=== PATIENT | female | born 1955 ===

== ENCOUNTER → 2017-01-26 | Outpatient (CLI) | payer BC ==
--- NOTE | 2017-01-27 11:53 | MM ---
Reason for exam: screening (asymptomatic). Last mammogram was performed 1 year and 2 months ago. History: Patient is postmenopausal. Benign stereotactic core biopsy of the left breast, November 28, 1998. Taking estrogen for 1 year beginning at age 58. Physical Findings: A clinical breast exam by your physician is recommended on an annual basis and results should be correlated with mammographic findings. MG Screening Mammo w CAD Bilateral CC and MLO view(s) were taken. Prior study comparison: December 10, 2015, bilateral MG screening mammo w CAD. September 29, 2014, right breast MG work up mamm w CAD RT. There are scattered fibroglandular densities. Finding: There are stale typically benign calcifications. There is no discrete abnormality. No significant changes in finding since December 10, 2015 and September 29, 2014. ASSESSMENT: Benign, BI-RAD 2 RECOMMENDATION: Routine screening mammogram of both breasts in 1 year.
== END | disposition home or self-care (01) ==
LOC: RADMAMWWP 11:15
PROVIDERS: ATTEND Obstetrics & Gynecology
DX: Z12.31 Encounter for screening mammogram for malignant neoplasm of breast (principal)

== ENCOUNTER → 2017-05-27 | Outpatient (CLI) | payer BC ==
[2017-05-27 15:48] VITALS: BP 115/74; PULSE 72; RESP 16; TEMP 99.1; BMI 30.1
--- NOTE | 2017-06-27 22:49 | P.PN ---
Progress Note - Text DATE OF SERVICE: 05/27/2017 CHIEF COMPLAINT: Follow-up gastric bypass. HISTORY OF PRESENT ILLNESS: Melva Morfin is a 61-year-old female who is status post Marisela-en-Y gastric bypass in March 2014. Initially her body mass index was 43.8. Today she comes in with a body mass index of 30.1. She has gained 2 pounds in 8 months. She had presented at her heaviest weight of 224 pounds for a 5 foot frame. Her ideal body weight is 127 pounds. She comes in now weighing 154 pounds. Her body mass index has been reduced from 43.8 down to 30.1. BMI point reduction is 13.7. Percent excess weight loss is 72%. She reports change in bowel habits between liquid stools and constipation. She reports intermittent gas cramps. No further reports of severe gastroesophageal reflux disease however. PAST MEDICAL HISTORY: 1. Gastroesophageal reflux disease, now resolved. 2. Irritable bowel syndrome. 3. Hypothyroidism. 4. Anxiety. 5. Osteoarthritis. 6. Hypertension. 7. Coronary artery disease. 8. Damaris's disease. PAST SURGICAL HISTORY: 1. Colonoscopy with EGD 2012. 2. . 3. Tonsillectomy. 4. Cholecystectomy. 5. Bilateral knee repair. 6. Bunionectomy. 7. Bilateral knee replacement. 8. Left breast biopsy. 9. Heart catheterization. 10. Tonsillectomy. 11. Appendectomy. 12. Cystoscopy. 13. Tubal ligation. 14. Gastric bypass. MEDICATIONS: 1. Zanaflex. 2. Omeprazole 3. Synthroid. 4. Premarin. 5. Tramadol. 6. Vitamin A. 7. Multivitamin. 8. Calcium carbonate ALLERGIES: PENICILLIN. FAMILY HISTORY: Pertinent for heart attack included non-Hodgkin lymphoma. SOCIAL HISTORY: Active alcohol use. Denies any tobacco use. REVIEW OF SYSTEMS: CONSTITUTIONAL: [place] body weight of 127 pounds. Initial weight was 224 pounds. She has lost 70 pounds. Percent excess weight loss 72%. Body mass index reduced from over 43.8 to 30.1 ENDOCRINE: Resolved diabetes. Has hypothyroidism. CARDIOVASCULAR: Resolved hypertension. Results hyperlipidemia. GASTROINTESTINAL: Denies any dumping syndrome. Prior history of gastrojejunal ulcer, including stricture. She also reports constipation. MUSCULOSKELETAL: Reports muscle spasms along the neck as well as upper back. GENITOURINARY: History of abnormal kidney function improved. No kidney stones. PSYCH: History of anxiety without suicidal ideation. NEURO: No reports of strokes or seizure disorders. PSYCH: History of anxiety. No reports of depression. HEMATOLOGIC: Denies any DVTs or pulmonary embolisms. PHYSICAL EXAM: VITAL SIGNS: 5 feet; 154 pounds, body mass index 30.1. Vital Signs 05/27/17 15:45 Temperature 99.1 F Pulse Rate 72 Respiratory 16 Rate Blood Pressure 115/74 GENERAL: Well-developed female in no acute distress. ABDOMEN: Actually soft, nontender, nondistended. MUSCULOSKELETAL: No clubbing, cyanosis, or edema. NECK: Supple without lymphadenopathy. CHEST: Unlabored respirations. Equal bilateral excursions. CARDIOVASCULAR: Regular rate and rhythm. NEURO: No focal or lateralizing signs. Cranial nerves II through XII. PSYCH: Appropriate affect. Alert and noted person place and time. HEENT: No scleral icterus. Extraocular grossly intact. Hears conversational speech. No nasal drainage. SKIN: Good skin turgor. Well-perfused. ASSESSMENT: 1. Morbid obesity due to excess caloric intake. 2. Body mass index reduced from 43.8 to 30.1 3. Status post Marisela-en-Y gastric bypass. 4. Change in bowel habits. 5. Irritable bowel syndrome. 6. Prior history of gastroesophageal reflux disease. PLAN: 1. She is one year out and recommendation bariatric metabolic panel. 2. Recommend protein intake of over 60 g daily. 3. Recommend fiber intake of 25 g daily. 4. Recommend fluid intake and 64 ounces daily. 5. Overall weight loss maintained over 70% excess weight loss.
== END | disposition home or self-care (01) ==
LOC: BARWHC3 14:47
PROVIDERS: ATTEND Surgery Plastic and Reconstructive Surgery
DX: Z48.815 Encounter for surgical aftercare following surgery on the digestive system (principal); Z98.84 Bariatric surgery status; E66.01 Morbid (severe) obesity due to excess calories; F41.9 Anxiety disorder, unspecified; K58.9 Irritable bowel syndrome, unspecified; Z87.19 Personal history of other diseases of the digestive system; Z88.0 Allergy status to penicillin; Z79.899 Other long term (current) drug therapy
CPT/HCPCS: 99211

== ENCOUNTER → 2017-06-01 | Outpatient (CLI) | payer BC ==
[2017-06-01 13:54] LABS: CH 30.2; HGB 11.7 gm/dL (11.4-16.0); MCH 30.5 pg (25.0-35.0); MCHC 34.3 g/dL (31.0-37.0); Mean Platelet Volume 6.9; RBC 3.82 m/uL (3.80-5.40); RDW 14.1 % (11.5-15.5); WBC 4.9 k/uL (3.8-10.6)
[2017-06-01 14:04] LABS: Partial Thromboplastin Time 24.7 sec (22.0-30.0); Prothrombin Time 10.5 sec (9.0-12.0)
[2017-06-01 14:22] LABS: ALT 44 U/L (9-52); AST 35 U/L (14-36); Alkaline Phosphatase 95 U/L (38-126); Anion Gap 9 mmol/L; Blood Urea Nitrogen 19 mg/dL (7-17); Calcium 9.3 mg/dL (8.4-10.2); Carbon Dioxide 26 mmol/L (22-30); Chloride 102 mmol/L (98-107); Cholesterol 181 mg/dL (<200); Glucose 85 mg/dL (74-99); HDL Cholesterol 68 mg/dL (40-60); Iron 97 ug/dL (37-170); Magnesium 1.8 mg/dL (1.6-2.3); Non-African American GFR(MDRD) >60 (>60 ml/min/1.73 sqM); Phosphorous 4.6 mg/dL (2.5-4.5); Potassium 4.4 mmol/L (3.5-5.1); Sodium 137 mmol/L (137-145); Total Bilirubin 0.9 mg/dL (0.2-1.3); Total Protein 6.1 g/dL (6.3-8.2)
[2017-06-01 14:33] LABS: % Iron Saturation 27.1 % (20-50); Prealbumin 19 mg/dL (18-36); Total Iron Binding Capacity 358 ug/dL (265-497)
[2017-06-01 15:13] LABS: Hemoglobin A1C 5.2 % (4.2-6.1)
[2017-06-01 15:27] LABS: Vitamin B12 741 pg/mL (239-931)
== END | disposition home or self-care (01) ==
LOC: LABWHC1 13:11
PROVIDERS: ATTEND Surgery Plastic and Reconstructive Surgery
DX: D50.8 Other iron deficiency anemias (principal); E21.1 Secondary hyperparathyroidism, not elsewhere classified; E89.1 Postprocedural hypoinsulinemia; E44.0 Moderate protein-calorie malnutrition; E55.9 Vitamin D deficiency, unspecified; K74.1 Hepatic sclerosis; N19 Unspecified kidney failure; K50.90 Crohn's disease, unspecified, without complications
CPT/HCPCS: 36415; 80053; 80061; 82306; 82525; 82607; 82728; 82746; 83036; 83540; 83550; 83735; 83970; 84100; 84134; 84255; 84425; 84443; 84590; 84630; 85027; 85610; 85730

== ENCOUNTER → 2017-09-02 | Outpatient (CLI) | payer BC ==
[2017-09-02 16:05] VITALS: BP 102/58; PULSE 71; RESP 16; TEMP 98.2; BMI 31.0
--- NOTE | 2017-11-01 12:32 | P.PN ---
Subjective Progress Note Date: 09/02/17 DATE OF SERVICE: 09/02/17 CHIEF COMPLAINT: Follow-up gastric bypass. HISTORY OF PRESENT ILLNESS: Melva Morfin is a 62-year-old female who is status post Marisela-en-Y gastric bypass in March 2014. Initially her body mass index was 43.8. Today she comes in with a body mass index of 31.0. She has gained 5 pounds in 3 months. She had presented at her heaviest weight of 224 pounds for a 5 foot frame. Her ideal body weight is 127 pounds. She comes in now weighing 158 pounds. Her body mass index has been reduced from 43.8 down to 31.0. BMI point reduction is 12.8. Percent excess weight loss is 68%. She denies any gastroesophageal reflux disease. She does report intolerance with drinking wine which causes burning of the stomach. She reports need for colonoscopy including upper endoscopy. She has been taking omeprazole which has helped with her symptoms. She reports irritable bowel syndrome. She also reports a lot of stress in her life. PAST MEDICAL HISTORY: 1. Gastroesophageal reflux disease. 2. Irritable bowel syndrome. 3. Hypothyroidism. 4. Anxiety. 5. Osteoarthritis. 6. Hypertension. 7. Coronary artery disease. 8. Damaris's disease. PAST SURGICAL HISTORY: 1. Colonoscopy with EGD 2012. 2. . 3. Tonsillectomy. 4. Cholecystectomy. 5. Bilateral knee repair. 6. Bunionectomy. 7. Bilateral knee replacement. 8. Left breast biopsy. 9. Heart catheterization. 10. Tonsillectomy. 11. Appendectomy. 12. Cystoscopy. 13. Tubal ligation. 14. Gastric bypass. MEDICATIONS: 1. Zoloft. 2. Alprazolam. 3. Tramadol. 4. Zanaflex. 5. Vitamin a 6. Omeprazole. 7. Multivitamin. 8. Synthroid. 9. Calcium. 10. Flexeril. ALLERGIES: PENICILLIN. FAMILY HISTORY: Pertinent for heart attack included non-Hodgkin lymphoma. SOCIAL HISTORY: Active alcohol use. Denies any tobacco use. REVIEW OF SYSTEMS: CONSTITUTIONAL: [place] body weight of 127 pounds. Initial weight was 224 pounds. She has lost 66 pounds. Percent excess weight loss 68%. Body mass index reduced from over 43.8 to 31.0. ENDOCRINE: Resolved diabetes. Has hypothyroidism. CARDIOVASCULAR: Resolved hypertension. Results hyperlipidemia. GASTROINTESTINAL: Denies any dumping syndrome. History of gastroesophageal reflux disease. She also reports constipation. MUSCULOSKELETAL: Reports muscle spasms along the neck as well as upper back. GENITOURINARY: History of abnormal kidney function improved. No kidney stones. PSYCH: History of anxiety without suicidal ideation. NEURO: No reports of strokes or seizure disorders. PSYCH: History of anxiety. No reports of depression. HEMATOLOGIC: Denies any DVTs or pulmonary embolisms. PHYSICAL EXAM: VITAL SIGNS: 5 feet; 158 pounds, body mass index 31.0. Vital Signs Temp 98.2 F 09/02/17 15:57 Pulse 71 09/02/17 15:57 Resp 16 09/02/17 15:57 BP 102/58 09/02/17 15:57 Pulse Ox GENERAL: Well-developed female in no acute distress. ABDOMEN: Actually soft, nontender, nondistended. MUSCULOSKELETAL: No clubbing, cyanosis, or edema. NECK: Supple without lymphadenopathy. CHEST: Unlabored respirations. Equal bilateral excursions. CARDIOVASCULAR: Regular rate and rhythm. NEURO: No focal or lateralizing signs. Cranial nerves II through XII. PSYCH: Appropriate affect. Alert and noted person place and time. HEENT: No scleral icterus. Extraocular grossly intact. Hears conversational speech. No nasal drainage. SKIN: Good skin turgor. Well-perfused. ASSESSMENT: 1. Morbid obesity due to excess caloric intake. 2. Body mass index reduced from 43.8 to 31.0. 3. Status post Marisela-en-Y gastric bypass. 4. Prior history of gastroesophageal reflux disease. 5. Need for colonoscopy screening. 6. Secondary hyperparathyroidism. PLAN: 1. Recommend proceeding with both an upper and lower endoscopy. 2. Continue with omeprazole as needed. 3. Labs were reviewed in detail with findings of improved 4. Recommend calcium intake of 1200 mg daily for secondary hyperparathyroidism. Objective - Vital Signs Vital signs: Vital Signs Temp 98.2 F 09/02/17 15:57 Pulse 71 09/02/17 15:57 Resp 16 09/02/17 15:57 BP 102/58 09/02/17 15:57 Pulse Ox Intake & Output 09/01/17 09/02/17 09/02/17 18:59 06:59 18:59 Weight 72.03 kg
== END ==
LOC: BARWHC3 14:46
PROVIDERS: ATTEND Surgery Plastic and Reconstructive Surgery
DX: E66.01 Morbid (severe) obesity due to excess calories (principal); K21.9 Gastro-esophageal reflux disease without esophagitis; K58.9 Irritable bowel syndrome, unspecified; N25.81 Secondary hyperparathyroidism of renal origin; I10 Essential (primary) hypertension; I25.10 Atherosclerotic heart disease of native coronary artery without angina pectoris; E06.3 Autoimmune thyroiditis; F41.9 Anxiety disorder, unspecified; M19.90 Unspecified osteoarthritis, unspecified site; Z68.31 Body mass index [BMI] 31.0-31.9, adult; Z98.84 Bariatric surgery status; Z12.11 Encounter for screening for malignant neoplasm of colon; Z90.49 Acquired absence of other specified parts of digestive tract; Z96.653 Presence of artificial knee joint, bilateral; Z98.890 Other specified postprocedural states; Z88.0 Allergy status to penicillin; Z79.899 Other long term (current) drug therapy; Z79.891 Long term (current) use of opiate analgesic
CPT/HCPCS: 99211

== ENCOUNTER 2017-09-09 08:11 | Day surgery (SDC) | payer BC ==
[2017-09-08 08:33] VITALS: BMI 30.8
--- NOTE | 2017-09-09 07:46 | P.GSHP ---
History of Present Illness H&P Date: 09/09/17 CHIEF COMPLAINT: GERD and colon screen HISTORY OF PRESENT ILLNESS: The patient is a 62-year-old female who presents with gastroesophageal reflux disease and need for colon screen. Upper and lower endoscopy were offered for further evaluation and management. PAST MEDICAL HISTORY: Please see list. PAST SURGICAL HISTORY: Please see list. MEDICATIONS: Please see list. ALLERGIES: Please see list. SOCIAL HISTORY: No illicit drug use FAMILY HISTORY: No reports of Crohn disease or ulcerative colitis. REVIEW OF ORGAN SYSTEMS: CONSTITUTIONAL: No reports of fevers or chills. GI: Denies any blood in stools or constipation. PHYSICAL EXAM: VITAL SIGNS: Stable GENERAL: Well-developed pleasant in no acute distress. HEENT: No scleral icterus. Extraocular movements grossly intact. Moist buccal mucosa. NECK: Supple without lymphadenopathy. CHEST: Unlabored respirations. Equal bilateral excursions. CARDIOVASCULAR: Regular rate and rhythm. Distal 2+ pulses. ABDOMEN: Soft, nondistended. MUSCULOSKELETAL: No clubbing, cyanosis, or edema. ASSESSMENT: 1. Gastroesophageal reflux disease 2. Colon screen. PLAN: 1. Recommend proceeding with an upper and lower endoscopy Past Medical History Past Medical History: Fibromyalgia, Musculoskeletal Disorder, Thyroid Disorder Additional Past Medical History / Comment(s): ALBARO'S, BACK PAIN, STATES "IRREGULAR HEART BEAT", History of Any Multi-Drug Resistant Organisms: None Reported Past Surgical History: Appendectomy, Bariatric Surgery, Breast Surgery, Section, Heart Catheterization, Hernia Repair, Hysterectomy, Joint Replacement, Tonsillectomy, Tubal Ligation Additional Past Surgical History / Comment(s): BILAT TKA, FOOT SX. Colonoscopy , EGD1, Hx.gastric bypass with esophagus repair (March 2015), HIATAL HERNIA, VENTRAL HERNIA Past Anesthesia/Blood Transfusion Reactions: No Reported Reaction Smoking Status: Never smoker - Past Family History Father Family Medical History: Coronary Artery Disease (CAD) Mother Family Medical History: Cancer Additional Family Medical History / Comment(s): NON-HODGKINS LYMPHOMA Brother(s) Family Medical History: Myocardial Infarction (NE) Sister(s) Family Medical History: Myocardial Infarction (NE), Thyroid Disorder Medications and Allergies Home Medications Medication Instructions Recorded Confirmed Type Levothyroxine Sodium [Synthroid] 175 mcg PO DAILY 02/23/14 09/08/17 History ALPRAZolam [ALPRAZolam] 0.5 mg PO HS 10/17/14 09/08/17 History traMADol HCL [Tramadol HCl] 50 mg PO DAILY 10/17/14 09/08/17 History Calcium Carbonate [Calcium] 1,500 mg PO DAILY 07/31/16 09/08/17 History Multivitamins, Thera [Multivitamin] 1 tab PO DAILY 07/31/16 09/08/17 History Vitamin A 20,000 unit PO DAILY 07/31/16 09/08/17 History tiZANidine [Zanaflex] 2 mg PO Q8HR PRN 07/31/16 09/08/17 History Omeprazole 40 mg PO DAILY PRN 09/02/17 09/08/17 History Sertraline [Zoloft] 50 mg PO DAILY 09/02/17 09/08/17 History Allergies Allergy/AdvReac Type Severity Reaction Status Date / Time Penicillins Allergy Swelling Verified 09/08/17 08:30
[~2017-09-09 08:11] MED LIST: LACTATED RINGERS 1,000 ML IV SCH
[2017-09-09 08:54] VITALS: RESP 16; TEMP 97
[2017-09-09] MEDS ORDERED: LIDOCAINE 1% 20 ML VIAL (10MG/ML) FOR IV START INTRADERMA ONE (08:55)
[2017-09-09] MEDS ORDERED: PROPOFOL 10 MG/ML 20 ML VIAL IV ONE (09:12)
[2017-09-09] MEDS ORDERED: LIDOCAINE 1% INJ 10MG/ML (20 ML MDV) ONE (09:12)
--- NOTE | 2017-09-09 09:49 | P.PCN ---
Date of Procedure: 09/09/17 Description of Procedure: PREOPERATIVE DIAGNOSIS: Gastroesophageal reflux disease. History of gastrojejunal stricture. POSTOPERATIVE DIAGNOSIS: Gastroesophageal reflux disease. History of gastrojejunal stricture. OPERATION: Esophagogastrojejunoscopy with balloon dilatation from 15 to 20 mm. SURGEON: Kimmie Bush MD ANESTHESIA: MAC. INDICATIONS: The patient is a 62-year-old female who presents with a history of gastrojejunal stricture. Benefits and risks of the procedure were described. Informed consent was obtained. DESCRIPTION: The patient was brought into the endoscopy suite and laid in the left lateral decubitus position. After a timeout was confirmed, the procedure was initiated. An Olympus gastroscope was passed along the posterior oropharynx down to the distal esophagus where the squamocolumnar junction was unremarkable. The gastric pouch was entered. A gastrojejunal stricture of 15 mm was found as the adult gastroscope was 9.5 mm in size. A [employer] balloon dilator was placed through the scope. Final insufflation up to 20 mm was performed with a total of 2 minutes. The scope was advanced up to 60 cm from the incisors into the Marisela limb. The mucosa of the gastrojejunal anastomosis was intact. However chronic gastrojejunal marginal ulcer was encountered. No full-thickness injury was encountered. The GI tract was desufflated. The patient tolerated the procedure well. FINDINGS: Stricture of approximately 15 mm encountered. No chronic gastrojejunal ulceration encountered. Successful balloon dilatation to 20 mm. RECOMMENDATIONS: Upper endoscopy as needed.
[2017-09-09 09:53] VITALS: BP 95/61; PULSE 75
--- NOTE | 2017-09-09 09:53 | P.PCN ---
Date of Procedure: 09/09/17 Description of Procedure: PREOPERATIVE DIAGNOSIS: Colonoscopy screening. POSTOPERATIVE DIAGNOSIS: Colonoscopy screening. Grade 2 internal hemorrhoids without complications. OPERATION: Colonoscopy to the ileocecal valve and appendiceal orifice. SURGEON: Kimmie Bush MD. ANESTHESIA: MAC. INDICATIONS: The patient is a 62-year-old female who presents for colonoscopy screening. Last colonoscopy was performed within the last 10 years. Benefits and risks were described and informed consent was obtained. DESCRIPTION OF PROCEDURE: The patient had undergone Gatorade, MiraLAX and Dulcolax prep. Se had been brought into the operating room and laid in the left lateral decubitus position. After adequate intravenous sedation, the rectum was examined with 2% lidocaine jelly. No external hemorrhoids were encountered. The rectal tone was within normal limits. No lesions were palpated in the rectal vault. An Olympus colonoscope was advanced until the ileocecal valve and appendiceal orifice were clearly viewed. The prep was excellent with clear visualization of the mucosal folds. The scope was removed with visualization of each mucosal fold. No scattered diverticulosis was encountered. No colonic polyps were found. No evidence of focal colitis was found. Retroflexion of the scope demonstrated grade 2 internal hemorrhoids without active bleeding or inflammation. The colon was desufflated. The patient had tolerated the procedure well. Withdrawal time was over 6 minutes. FINDINGS: Internal hemorrhoids, grade 2. No external prolapsed hemorrhoids. No arteriovenous malformations. No adenomatous polyps. No focal colitis. No sigmoid diverticulosis. RECOMMENDATIONS: Lower endoscopy every 10 years per screening guidelines, 2026; however down to 5 years with family history of colon polyps or cancer. Plan - Discharge Summary New Discharge Prescriptions: No Action Levothyroxine Sodium [Synthroid] 175 mcg PO DAILY traMADol HCL [Tramadol HCl] 50 mg PO DAILY ALPRAZolam [ALPRAZolam] 0.5 mg PO HS tiZANidine [Zanaflex] 2 mg PO Q8HR PRN PRN Reason: Muscle Pain Multivitamins, Thera [Multivitamin] 1 tab PO DAILY Vitamin A 20,000 unit PO DAILY Calcium Carbonate [Calcium] 1,500 mg PO DAILY Omeprazole 40 mg PO DAILY PRN PRN Reason: reflux Sertraline [Zoloft] 50 mg PO DAILY Cyclobenzaprine [Flexeril] 1 tab PO DIRECTED Discharge Medication List Levothyroxine Sodium [Synthroid] 175 mcg PO DAILY 02/23/14 [History] ALPRAZolam [ALPRAZolam] 0.5 mg PO HS 10/17/14 [History] traMADol HCL [Tramadol HCl] 50 mg PO DAILY 10/17/14 [History] Calcium Carbonate [Calcium] 1,500 mg PO DAILY 07/31/16 [History] Multivitamins, Thera [Multivitamin] 1 tab PO DAILY 07/31/16 [History] Vitamin A 20,000 unit PO DAILY 07/31/16 [History] tiZANidine [Zanaflex] 2 mg PO Q8HR PRN 07/31/16 [History] Omeprazole 40 mg PO DAILY PRN 09/02/17 [History] Sertraline [Zoloft] 50 mg PO DAILY 09/02/17 [History] Cyclobenzaprine [Flexeril] 1 tab PO DIRECTED 09/09/17 [History] Follow up Appointment(s)/Referral(s): Kimmie Bush MD [STAFF PHYSICIAN] - As Needed Patient Instructions/Handouts: *[facility] - (Anesthesia) Endoscopy Discharge Instructions Discharge Disposition: HOME SELF-CARE
== END 2017-09-09 10:31 | disposition home or self-care (01) ==
LOC: ORWHC2ENDO 08:11
PROVIDERS: ATTEND Surgery Plastic and Reconstructive Surgery
DX: Z12.11 Encounter for screening for malignant neoplasm of colon (principal); K64.1 Second degree hemorrhoids; K31.89 Other diseases of stomach and duodenum; K21.9 Gastro-esophageal reflux disease without esophagitis; M79.7 Fibromyalgia; E06.3 Autoimmune thyroiditis; M54.2 Cervicalgia; Z98.84 Bariatric surgery status; Z98.51 Tubal ligation status; Z79.891 Long term (current) use of opiate analgesic; Z79.899 Other long term (current) drug therapy; Z88.0 Allergy status to penicillin
CPT/HCPCS: 43245; J2001; J2704; C1726; G0121; 43249

== ENCOUNTER → 2018-03-24 | Outpatient (CLI) | payer BC ==
[2018-03-24 14:42] VITALS: BP 115/59; PULSE 78; RESP 15; TEMP 97.9; BMI 31.6
--- NOTE | 2018-03-24 15:08 | P.PN ---
Subjective Progress Note Date: 03/24/18 DATE OF SERVICE: 03/24/18 CHIEF COMPLAINT: Follow-up gastric bypass. HISTORY OF PRESENT ILLNESS: Melva Morfin is a 63-year-old female who is status post Marisela-en-Y gastric bypass in March 2014. Initially her body mass index was 43.8. She reports weight gain. Some issues with food getting stuck. She reports fair energy. PLAN: 1. Get labs. 2. Get EGD for stricture. 3. Recommend 2 week protein diet. DATE OF SERVICE: 09/02/17 CHIEF COMPLAINT: Follow-up gastric bypass. HISTORY OF PRESENT ILLNESS: Melva Morfin is a 62-year-old female who is status post Marisela-en-Y gastric bypass in March 2014. Initially her body mass index was 43.8. Today she comes in with a body mass index of 31.0. She has gained 5 pounds in 3 months. She had presented at her heaviest weight of 224 pounds for a 5 foot frame. Her ideal body weight is 127 pounds. She comes in now weighing 158 pounds. Her body mass index has been reduced from 43.8 down to 31.0. BMI point reduction is 12.8. Percent excess weight loss is 68%. She denies any gastroesophageal reflux disease. She does report intolerance with drinking wine which causes burning of the stomach. She reports need for colonoscopy including upper endoscopy. She has been taking omeprazole which has helped with her symptoms. She reports irritable bowel syndrome. She also reports a lot of stress in her life. PAST MEDICAL HISTORY: 1. Gastroesophageal reflux disease. 2. Irritable bowel syndrome. 3. Hypothyroidism. 4. Anxiety. 5. Osteoarthritis. 6. Hypertension. 7. Coronary artery disease. 8. Damaris's disease. PAST SURGICAL HISTORY: 1. Colonoscopy with EGD 2012. 2. . 3. Tonsillectomy. 4. Cholecystectomy. 5. Bilateral knee repair. 6. Bunionectomy. 7. Bilateral knee replacement. 8. Left breast biopsy. 9. Heart catheterization. 10. Tonsillectomy. 11. Appendectomy. 12. Cystoscopy. 13. Tubal ligation. 14. Gastric bypass. MEDICATIONS: 1. Zoloft. 2. Alprazolam. 3. Tramadol. 4. Zanaflex. 5. Vitamin a 6. Omeprazole. 7. Multivitamin. 8. Synthroid. 9. Calcium. 10. Flexeril. ALLERGIES: PENICILLIN. FAMILY HISTORY: Pertinent for heart attack included non-Hodgkin lymphoma. SOCIAL HISTORY: Active alcohol use. Denies any tobacco use. REVIEW OF SYSTEMS: CONSTITUTIONAL: [place] body weight of 127 pounds. Initial weight was 224 pounds. She has lost 66 pounds. Percent excess weight loss 68%. Body mass index reduced from over 43.8 to 31.0. ENDOCRINE: Resolved diabetes. Has hypothyroidism. CARDIOVASCULAR: Resolved hypertension. Results hyperlipidemia. GASTROINTESTINAL: Denies any dumping syndrome. History of gastroesophageal reflux disease. She also reports constipation. MUSCULOSKELETAL: Reports muscle spasms along the neck as well as upper back. GENITOURINARY: History of abnormal kidney function improved. No kidney stones. PSYCH: History of anxiety without suicidal ideation. NEURO: No reports of strokes or seizure disorders. PSYCH: History of anxiety. No reports of depression. HEMATOLOGIC: Denies any DVTs or pulmonary embolisms. PHYSICAL EXAM: VITAL SIGNS: 5 feet; 158 pounds, body mass index 31.0. Vital Signs Temp 98.2 F 09/02/17 15:57 Pulse 71 09/02/17 15:57 Resp 16 09/02/17 15:57 BP 102/58 09/02/17 15:57 Pulse Ox GENERAL: Well-developed female in no acute distress. ABDOMEN: Actually soft, nontender, nondistended. MUSCULOSKELETAL: No clubbing, cyanosis, or edema. NECK: Supple without lymphadenopathy. CHEST: Unlabored respirations. Equal bilateral excursions. CARDIOVASCULAR: Regular rate and rhythm. NEURO: No focal or lateralizing signs. Cranial nerves II through XII. PSYCH: Appropriate affect. Alert and noted person place and time. HEENT: No scleral icterus. Extraocular grossly intact. Hears conversational speech. No nasal drainage. SKIN: Good skin turgor. Well-perfused. ASSESSMENT: 1. Morbid obesity due to excess caloric intake. 2. Body mass index reduced from 43.8 to 31.0. 3. Status post Marisela-en-Y gastric bypass. 4. Prior history of gastroesophageal reflux disease. 5. Need for colonoscopy screening. 6. Secondary hyperparathyroidism. PLAN: 1. Recommend proceeding with both an upper and lower endoscopy. 2. Continue with omeprazole as needed. 3. Labs were reviewed in detail with findings of improved 4. Recommend calcium intake of 1200 mg daily for secondary hyperparathyroidism.
[2018-03-24 16:02] LABS: HGB 10.9 gm/dL (11.4-16.0); MCH 29.7 pg (25.0-35.0); MCV 87.4 fL (80.0-100.0); Mean Platelet Volume 6.9; Platelet Count 255 k/uL (150-450); RBC 3.66 m/uL (3.80-5.40); RDW 14.1 % (11.5-15.5); WBC 4.6 k/uL (3.8-10.6)
[2018-03-24 16:07] LABS: Partial Thromboplastin Time 23.3 sec (22.0-30.0)
[2018-03-24 16:22] LABS: ALT 32 U/L (9-52); AST 29 U/L (14-36); Albumin 3.7 g/dL (3.5-5.0); Alkaline Phosphatase 110 U/L (38-126); Anion Gap 10 mmol/L; Blood Urea Nitrogen 18 mg/dL (7-17); Carbon Dioxide 30 mmol/L (22-30); Chloride 99 mmol/L (98-107); Cholesterol 179 mg/dL (<200); Glucose 105 mg/dL (74-99); HDL Cholesterol 64 mg/dL (40-60); LDL Cholesterol,Calculated 99 mg/dL (0-99); Magnesium 1.9 mg/dL (1.6-2.3); Phosphorus 4.3 mg/dL (2.5-4.5); Sodium 139 mmol/L (137-145); Total Bilirubin 0.6 mg/dL (0.2-1.3); Total Protein 5.8 g/dL (6.3-8.2); Triglycerides 81 mg/dL (<150)
[2018-03-25 02:25] LABS: Iron Saturation 8.16 (12.00-45.00)
[2018-03-25 03:57] LABS: Hemoglobin A1C 5.3 % (4.0-6.0)
[2018-03-25 11:55] LABS: Folate, Serum 22.5 ng/mL
[2018-03-25 14:22] LABS: Zinc, Serum 54 ug/dL (60-130)
[2018-03-26 05:34] LABS: Vitamin B1 49 ug/L (38-122)
[2018-03-26 05:42] LABS: Vitamin A 40 ug/dL (38-106)
[2018-03-27 10:32] LABS: Selenium 109 mcg/L (63-160)
== END | disposition home or self-care (01) ==
LOC: BARWHC3 13:54
PROVIDERS: ATTEND Surgery Plastic and Reconstructive Surgery
DX: Z09 Encounter for follow-up examination after completed treatment for conditions other than malignant neoplasm (principal); E66.01 Morbid (severe) obesity due to excess calories; K21.9 Gastro-esophageal reflux disease without esophagitis; K58.9 Irritable bowel syndrome, unspecified; E03.9 Hypothyroidism, unspecified; F41.9 Anxiety disorder, unspecified; I10 Essential (primary) hypertension; N25.81 Secondary hyperparathyroidism of renal origin; I25.10 Atherosclerotic heart disease of native coronary artery without angina pectoris; E06.3 Autoimmune thyroiditis; M19.90 Unspecified osteoarthritis, unspecified site; D50.9 Iron deficiency anemia, unspecified; K90.9 Intestinal malabsorption, unspecified; E55.9 Vitamin D deficiency, unspecified; K74.1 Hepatic sclerosis; N19 Unspecified kidney failure; Z90.49 Acquired absence of other specified parts of digestive tract; Z96.653 Presence of artificial knee joint, bilateral; Z98.84 Bariatric surgery status; Z98.890 Other specified postprocedural states; Z79.891 Long term (current) use of opiate analgesic; Z79.899 Other long term (current) drug therapy; Z68.31 Body mass index [BMI] 31.0-31.9, adult; Z88.0 Allergy status to penicillin
CPT/HCPCS: 36415; 80053; 80061; 82306; 82525; 82607; 82728; 82746; 83036; 83540; 83550; 83735; 83970; 84100; 84134; 84255; 84425; 84443; 84590; 84630; 85027; 85610; 85730; 99211

== ENCOUNTER 2018-04-28 08:35 | Day surgery (SDC) | payer BC ==
[2018-04-27 09:44] VITALS: BMI 30.4
--- NOTE | 2018-04-28 07:46 | P.GSHP ---
History of Present Illness H&P Date: 04/28/18 CHIEF COMPLAINT: GERD HISTORY OF PRESENT ILLNESS: The patient is a 63-year-old female who presents reports gastroesophageal reflux disease. Upper endoscopy was offered for further evaluation and management. PAST MEDICAL HISTORY: Please see list. PAST SURGICAL HISTORY: Please see list. MEDICATIONS: Please see list. ALLERGIES: Please see list. SOCIAL HISTORY: No illicit drug use FAMILY HISTORY: No reports of Crohn disease or ulcerative colitis. REVIEW OF ORGAN SYSTEMS: CONSTITUTIONAL: No reports of fevers or chills. GI: Denies any blood in stools or constipation. PHYSICAL EXAM: VITAL SIGNS: Stable GENERAL: Well-developed and pleasant in no acute distress. HEENT: No scleral icterus. Extraocular movements grossly intact. Moist buccal mucosa. NECK: Supple without lymphadenopathy. CHEST: Unlabored respirations. Equal bilateral excursions. CARDIOVASCULAR: Regular rate and rhythm. Distal 2+ pulses. ABDOMEN: Soft, nondistended. MUSCULOSKELETAL: No clubbing, cyanosis, or edema. ASSESSMENT: 1. Gastroesophageal reflux disease PLAN: 1. Recommend proceeding with an upper endoscopy Past Medical History Past Medical History: Asthma, Deep Vein Thrombosis (DVT), Fibromyalgia, Osteoarthritis (OA), Thyroid Disorder Additional Past Medical History / Comment(s): ALBARO'S, CHRONIC BACK PAIN from arthritis and bulging disks, hx ulcers, anemia(recent iron infusion) History of Any Multi-Drug Resistant Organisms: None Reported Past Surgical History: Appendectomy, Bariatric Surgery, Breast Surgery, Section, Cholecystectomy, Heart Catheterization, Hysterectomy, Joint Replacement, Tonsillectomy, Tubal Ligation Additional Past Surgical History / Comment(s): tejas knee replacements, tejas bunionectomy, gastric bypass, left breast biopsy, Past Anesthesia/Blood Transfusion Reactions: No Reported Reaction Smoking Status: Never smoker - Past Family History Father Family Medical History: Coronary Artery Disease (CAD) Mother Family Medical History: Cancer Additional Family Medical History / Comment(s): NON-HODGKINS LYMPHOMA Brother(s) Family Medical History: Myocardial Infarction ([place]) Sister(s) Family Medical History: Myocardial Infarction ([place]), Thyroid Disorder Medications and Allergies Home Medications Medication Instructions Recorded Confirmed Type Levothyroxine Sodium [Synthroid] 175 mcg PO DAILY 02/23/14 04/27/18 History traMADol HCL [Tramadol HCl] 50 - 100 mg PO Q6HR PRN 10/17/14 04/27/18 History Multivitamins, Thera [Multivitamin] 2 tab PO DAILY 07/31/16 04/27/18 History Sertraline [Zoloft] 50 mg PO DAILY 09/02/17 04/27/18 History Cyclobenzaprine [Flexeril] 5 tab PO BID PRN 09/09/17 04/27/18 History ALPRAZolam [Xanax] 0.5 mg PO HS PRN 04/27/18 04/27/18 History Calcium Citrate/Vitamin D3 1 each PO DAILY 04/27/18 04/27/18 History [Calcitrate + Vit D Caplet] Cholecalciferol [Vitamin D3] 1,000 unit PO DAILY 04/27/18 04/27/18 History Vitamin A 16,000 unit PO DAILY 04/27/18 04/27/18 History Allergies Allergy/AdvReac Type Severity Reaction Status Date / Time Penicillins Allergy Swelling Verified 04/27/18 09:31 of legs
[2018-04-28 09:32] VITALS: RESP 16; TEMP 97.4
[2018-04-28] MEDS ORDERED: LIDOCAINE 1% INJ 10MG/ML (20 ML MDV) ONE (10:17)
[2018-04-28] MEDS ORDERED: PROPOFOL 10 MG/ML 20 ML VIAL IV ONE (10:17)
--- NOTE | 2018-04-28 10:29 | P.PCN ---
Date of Procedure: 04/28/18 Description of Procedure: PREOPERATIVE DIAGNOSIS: Dysphagia. s/p Marisela-en-y gastric bypass. Gastroesophageal reflux disease POSTOPERATIVE DIAGNOSIS: Dysphagia. s/p Marisela-en-y gastric bypass. 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 SURGEON: Kimmie Bush MD ANESTHESIA: MAC. INDICATIONS: The patient is a 63-year-old female who presents with a history of dysphagia, gastric bypass and gastric stenosis. Benefits and risks of the procedure were described. Informed consent was obtained. DESCRIPTION: The patient was brought into the endoscopy suite and laid in the left lateral decubitus position. After a timeout was confirmed, the procedure was initiated. An Olympus gastroscope was passed along the posterior oropharynx down to the distal esophagus where the squamocolumnar junction was unremarkable. The gastric pouch was entered. A gastrojejunal stricture of 15 mm was found as the adult gastroscope was 9.5 mm in size. A [employer] balloon dilator was placed through the scope. Final insufflation up to 20 mm was performed with a total of 2 minutes. The scope was advanced up to 60 cm from the incisors into the Marisela limb. The mucosa of the gastrojejunal anastomosis was intact. However chronic gastrojejunal marginal ulcer was encountered. No full-thickness injury was encountered. The GI tract was desufflated. The patient tolerated the procedure well. FINDINGS: Stricture of approximately 15 mm encountered. No chronic gastrojejunal ulceration encountered. Successful balloon dilatation to 20 mm. RECOMMENDATIONS: Upper endoscopy as needed Plan - Discharge Summary New Discharge Prescriptions: No Action Levothyroxine Sodium [Synthroid] 175 mcg PO DAILY traMADol HCL [Tramadol HCl] 50 - 100 mg PO Q6HR PRN PRN Reason: Pain Multivitamins, Thera [Multivitamin] 2 tab PO DAILY Sertraline [Zoloft] 50 mg PO DAILY Cyclobenzaprine [Flexeril] 5 tab PO BID PRN PRN Reason: muscle spasms Calcium Citrate/Vitamin D3 [Calcitrate + Vit D Caplet] 1 each PO DAILY ALPRAZolam [Xanax] 0.5 mg PO HS PRN PRN Reason: Anxiety Cholecalciferol [Vitamin D3] 1,000 unit PO DAILY Vitamin A 16,000 unit PO DAILY Discharge Medication List Levothyroxine Sodium [Synthroid] 175 mcg PO DAILY 02/23/14 [History] traMADol HCL [Tramadol HCl] 50 - 100 mg PO Q6HR PRN 10/17/14 [History] Multivitamins, Thera [Multivitamin] 2 tab PO DAILY 07/31/16 [History] Sertraline [Zoloft] 50 mg PO DAILY 09/02/17 [History] Cyclobenzaprine [Flexeril] 5 tab PO BID PRN 09/09/17 [History] ALPRAZolam [Xanax] 0.5 mg PO HS PRN 04/27/18 [History] Calcium Citrate/Vitamin D3 [Calcitrate + Vit D Caplet] 1 each PO DAILY 04/27/18 [History] Cholecalciferol [Vitamin D3] 1,000 unit PO DAILY 04/27/18 [History] Vitamin A 16,000 unit PO DAILY 04/27/18 [History]
[2018-04-28 10:51] VITALS: BP 118/68; PULSE 73
--- NOTE | 2018-05-04 11:13 | CDI ---
Outpatient Documentation Clarification Form Date: 05/04/18 CDS/Teaching Artist Name: Cyndi Veliz Phone: If any questions, call [facility] at [phone] Patient Name: Melva Morfin Admit Date: 04/28/18 Discharge Date: 04/28/18 ATTENTION: The [facility] Coding Staff appreciate your assistance in clarifying documentation. Please respond to the clarification below the line at the bottom and electronically sign. The [facility] Coding staff will review the response and follow-up if needed. Please note: Queries are made part of the Legal Health Record. If you have any questions, please contact the [facility]. Dear Dr. Bush, Does the patient have a chronic gastrojejunal ulcer or not? The body of the op report states ulcer and the findings on the op report state no ulcer. This is conflicting information. Please clarify. Thank you for your kind consideration. PLEASE SEE CORRECTED REPORT.....NO ULCER FOUND KM 05/04/18 @ [facility]
== END 2018-04-28 11:11 | disposition home or self-care (01) ==
LOC: ORWHC2ENDO 08:35
PROVIDERS: ATTEND Surgery Plastic and Reconstructive Surgery
DX: K29.50 Unspecified chronic gastritis without bleeding (principal); K31.89 Other diseases of stomach and duodenum; Z98.0 Intestinal bypass and anastomosis status; Z98.84 Bariatric surgery status; K21.9 Gastro-esophageal reflux disease without esophagitis; J45.909 Unspecified asthma, uncomplicated; M79.7 Fibromyalgia; M19.90 Unspecified osteoarthritis, unspecified site; E06.3 Autoimmune thyroiditis; G89.29 Other chronic pain; D64.9 Anemia, unspecified; I25.10 Atherosclerotic heart disease of native coronary artery without angina pectoris; F41.9 Anxiety disorder, unspecified; F32.9 Major depressive disorder, single episode, unspecified; Z86.718 Personal history of other venous thrombosis and embolism; Z79.890 Hormone replacement therapy; Z79.899 Other long term (current) drug therapy; Z88.0 Allergy status to penicillin; Z96.653 Presence of artificial knee joint, bilateral; Z90.710 Acquired absence of both cervix and uterus; Z90.49 Acquired absence of other specified parts of digestive tract; Z98.51 Tubal ligation status
CPT/HCPCS: 88305; 43239; 43245; J2001; J2704; C1726; 43249

== ENCOUNTER → 2018-06-30 | Outpatient (CLI) | payer BC ==
[2018-06-30 16:04] VITALS: BP 111/69; PULSE 76; TEMP 98.2; BMI 31.8
--- NOTE | 2018-06-30 16:30 | P.PN ---
Subjective Progress Note Date: 06/30/18 DATE OF SERVICE: 06/30/18 CHIEF COMPLAINT: Follow-up gastric bypass HISTORY OF PRESENT ILLNESS: Melva Morfin is a 63-year-old female who is status post Marisela-en-Y gastric bypass in March 2014. Initially her body mass index was 43.8. She reports feeling better and having more energy. Today she comes in with a body mass index of 31.8. She has gained 1 pounds in 3 months. She had presented at her heaviest weight of 224 pounds for a 5 foot frame. Her ideal body weight is 127 pounds. She comes in now weighing 163 pounds from 162 pounds, 3 months. Her body mass index has been reduced from 43.8 down to 31.8. Percent excess weight loss is 63%. PAST MEDICAL HISTORY: 1. Gastroesophageal reflux disease. 2. Irritable bowel syndrome. 3. Hypothyroidism. 4. Anxiety. 5. Osteoarthritis. 6. Hypertension. 7. Coronary artery disease. 8. Damaris's disease. 9. Morbid obesity excess calories, initial BMI 43.8 PAST SURGICAL HISTORY: 1. Colonoscopy with EGD 2012. 2. . 3. Tonsillectomy. 4. Cholecystectomy. 5. Bilateral knee repair. 6. Bunionectomy. 7. Bilateral knee replacement. 8. Left breast biopsy. 9. Heart catheterization. 10. Tonsillectomy. 11. Appendectomy. 12. Cystoscopy. 13. Tubal ligation. 14. Gastric bypass. MEDICATIONS: 1. Zoloft. 2. Alprazolam. 3. Tramadol. 4. Zanaflex. 5. Vitamin A 6. Omeprazole. 7. Multivitamin. 8. Synthroid. 9. Calcium. 10. Flexeril. ALLERGIES: PENICILLIN. FAMILY HISTORY: Pertinent for heart attack included non-Hodgkin lymphoma. SOCIAL HISTORY: Active alcohol use. Denies any tobacco use. REVIEW OF SYSTEMS: CONSTITUTIONAL: Chaplin body weight of 127 pounds. Initial weight was 224 pounds. She has lost 61 pounds. Percent excess weight loss 63%. Body mass index reduced from over 43.8 to 31.8 ENDOCRINE: Resolved diabetes. Has hypothyroidism. CARDIOVASCULAR: Resolved hypertension. Results hyperlipidemia. GASTROINTESTINAL: Denies any dumping syndrome. History of gastroesophageal reflux disease. She also reports constipation. MUSCULOSKELETAL: Reports muscle spasms along the neck as well as upper back. GENITOURINARY: History of abnormal kidney function improved. No kidney stones. PSYCH: History of anxiety without suicidal ideation. NEURO: No reports of strokes or seizure disorders. PSYCH: History of anxiety. No reports of depression. HEMATOLOGIC: Denies any DVTs or pulmonary embolisms. PHYSICAL EXAM: VITAL SIGNS: 5 feet; 163 pounds, body mass index 31.8 Vital Signs Temp 98.2 F 06/30/18 15:59 Pulse 76 06/30/18 15:59 Resp BP 111/69 06/30/18 15:59 Pulse Ox GENERAL: Well-developed female in no acute distress. ABDOMEN: Actually soft, nontender, nondistended. MUSCULOSKELETAL: No clubbing, cyanosis, or edema. NECK: Supple without lymphadenopathy. CHEST: Unlabored respirations. Equal bilateral excursions. CARDIOVASCULAR: Regular rate and rhythm. NEURO: No focal or lateralizing signs. Cranial nerves II through XII. PSYCH: Appropriate affect. Alert and noted person place and time. HEENT: No scleral icterus. Extraocular grossly intact. Hears conversational speech. No nasal drainage. SKIN: Good skin turgor. Well-perfused. ASSESSMENT: 1. Morbid obesity due to excess caloric intake. 2. Body mass index reduced from 43.8 to 31.8. 3. Status post Marisela-en-Y gastric bypass. 4. History of gastrojejunal stricture PLAN: 1. Bariatric labs from before reviewed. 2. Two week protein diet is advised 3. Alive MVI ultrapotency advised 4. Recommend follow up yearly Objective - Vital Signs Vital signs: Vital Signs Temp 98.2 F 06/30/18 15:59 Pulse 76 06/30/18 15:59 Resp BP 111/69 06/30/18 15:59 Pulse Ox Intake & Output 06/29/18 06/30/18 06/30/18 18:59 06:59 18:59 Weight 73.936 kg - Labs CBC & Chem 7: 06/30/18 16:57 06/30/18 16:57
[2018-06-30 17:37] LABS: HGB 11.9 gm/dL (11.4-16.0); MCH 30.1 pg (25.0-35.0); MCHC 32.9 g/dL (31.0-37.0); MCV 91.6 fL (80.0-100.0); Mean Platelet Volume 6.4; Platelet Count 221 k/uL (150-450); RBC 3.93 m/uL (3.80-5.40); RDW 15.8 % (11.5-15.5); WBC 4.8 k/uL (3.8-10.6)
[2018-06-30 17:49] LABS: Prothrombin Time 9.6 sec (9.0-12.0)
[2018-06-30 18:16] LABS: ALT 74 U/L (9-52); AST 59 U/L (14-36); Albumin 3.7 g/dL (3.5-5.0); Alkaline Phosphatase 121 U/L (38-126); Anion Gap 8 mmol/L; Blood Urea Nitrogen 14 mg/dL (7-17); Calcium 9.1 mg/dL (8.4-10.2); Carbon Dioxide 28 mmol/L (22-30); Chloride 102 mmol/L (98-107); Cholesterol 217 mg/dL (<200); Glucose 159 mg/dL (74-99); HDL Cholesterol 77 mg/dL (40-60); LDL Cholesterol,Calculated 123 mg/dL (0-99); Magnesium 2.1 mg/dL (1.6-2.3); Phosphorus 3.4 mg/dL (2.5-4.5); Potassium 4.1 mmol/L (3.5-5.1); Sodium 138 mmol/L (137-145); Total Bilirubin 0.5 mg/dL (0.2-1.3); Triglycerides 86 mg/dL (<150)
[2018-07-01 01:53] LABS: Iron Saturation 31.2 (12.00-45.00)
[2018-07-01 02:05] LABS: Vitamin D 25 Hydroxy 31.7 ng/mL (30.0-100.0)
[2018-07-01 02:25] LABS: Folate, Serum 16.8 ng/mL
[2018-07-01 02:31] LABS: Hemoglobin A1C 5.3 % (4.0-6.0)
[2018-07-01 02:53] LABS: Parathyroid Hormone Intact 114.9 pg/mL (14.0-72.0)
[2018-07-02 15:09] LABS: Zinc, Serum 82 ug/dL (60-130)
[2018-07-05 06:13] LABS: Vitamin B1 70 ug/L (38-122)
[2018-07-06 08:22] LABS: Vitamin A 47 ug/dL (38-106)
[2018-07-06 15:19] LABS: Selenium 118 mcg/L (63-160)
== END | disposition home or self-care (01) ==
LOC: BARWHC3 14:31
PROVIDERS: ATTEND Surgery Plastic and Reconstructive Surgery
DX: Z09 Encounter for follow-up examination after completed treatment for conditions other than malignant neoplasm (principal); E66.01 Morbid (severe) obesity due to excess calories; E21.1 Secondary hyperparathyroidism, not elsewhere classified; D50.9 Iron deficiency anemia, unspecified; K90.9 Intestinal malabsorption, unspecified; E55.9 Vitamin D deficiency, unspecified; K74.1 Hepatic sclerosis; N19 Unspecified kidney failure; K50.90 Crohn's disease, unspecified, without complications; Z68.31 Body mass index [BMI] 31.0-31.9, adult; Z98.84 Bariatric surgery status; Z88.0 Allergy status to penicillin; Z79.891 Long term (current) use of opiate analgesic; Z79.899 Other long term (current) drug therapy; Z90.49 Acquired absence of other specified parts of digestive tract; Z90.89 Acquired absence of other organs; Z96.653 Presence of artificial knee joint, bilateral
CPT/HCPCS: 36415; 80053; 80061; 82306; 82525; 82607; 82728; 82746; 83036; 83540; 83550; 83735; 83970; 84100; 84134; 84255; 84425; 84443; 84590; 84630; 85027; 85610; 85730; 99211

== ENCOUNTER → 2018-07-14 | Outpatient (CLI) | payer BC ==
--- NOTE | 2018-07-14 14:12 | BD ---
EXAMINATION TYPE: Axial Bone Density DATE OF EXAM: 07/14/2018 COMPARISON: NONE CLINICAL HISTORY: Height: 60 Weight: 166.9 FRAX RISK QUESTIONS: Alcohol (3 or more units per day): no Family History (Parent hip fracture): no Glucocorticoids (More than 3mos): no (Ex: prednisone, prednisolone, methylprednisolone, dexamethasone, and hydrocortisone). History of Fracture in Adulthood: yes Secondary Osteoporosis: 1. Type 1 Diabetes: no 2. Hyperthyroidism: no 3. Menopause before 45: no 4. Malnutrition: no 5. Chronic liver disease: no Rheumatoid Arthritis: no Current Tobacco Use: no RISK FACTORS HISTORY OF: Family History of Osteoporosis: no Active: yes Diet low in dairy products/other sources of calcium: no Postmenopausal woman: at age 49 Lost more than 2 inches in height since high school: no MEDICATIONS: anti depressant med Thyroid Medications: synthroid How Lon years Additional History: EXAM MEASUREMENTS: Bone mineral densitometry was performed using the [employer] System. Bone mineral density as measured about the Lumbar spine is: ----- L1-L4(G/cm2): 0.950 T Score Values are as follows: ----- L2: -3.1 ----- L3: -2.1 ----- L4: 0.0 ----- L1-L4: -1.9 Bone mineral density : baseline Bone mineral density about the R hip (g/cm2): 0.829 Bone mineral density about the L hip (g/cm2): 0.770 T Score values are as follows: -----R Neck: -1.5 -----L Neck: -1.9 -----R Total: -1.2 -----L Total: -1.5 Bone mineral density : baseline IMPRESSION: Osteopenia NOTE: T-SCORE=SD OF THE YOUNG ADULT MEAN.
--- NOTE | 2018-07-16 10:22 | MM ---
Reason for exam: screening (asymptomatic). Last mammogram was performed 1 year and 6 months ago. History: Patient is postmenopausal. Benign stereotactic core biopsy of the left breast, November 28, 1998. Taking estrogen for 1 year beginning at age 58. Physical Findings: A clinical breast exam by your physician is recommended on an annual basis and results should be correlated with mammographic findings. MG Screening Mammo w CAD Bilateral CC and MLO view(s) were taken. Prior study comparison: January 26, 2017, bilateral MG screening mammo w CAD. December 10, 2015, bilateral MG screening mammo w CAD. There are scattered fibroglandular densities. Previous mammotome biopsy in the left breast. No significant changes when compared with prior studies. ASSESSMENT: Negative, BI-RAD 1 RECOMMENDATION: Routine screening mammogram of both breasts in 1 year.
== END | disposition home or self-care (01) ==
LOC: RADMAMWWP 11:55
PROVIDERS: ATTEND Obstetrics & Gynecology
DX: Z12.31 Encounter for screening mammogram for malignant neoplasm of breast (principal); M85.80 Other specified disorders of bone density and structure, unspecified site
CPT/HCPCS: 77067; 77080

== ENCOUNTER → 2018-09-22 | Outpatient (CLI) | payer BC ==
[2018-09-22 16:13] VITALS: BP 121/79; PULSE 76; TEMP 97.6; BMI 32.6
--- NOTE | 2018-09-22 16:50 | P.PN ---
Subjective Progress Note Date: 09/22/18 DATE OF SERVICE: 09/22/18 CHIEF COMPLAINT: Follow-up gastric bypass HISTORY OF PRESENT ILLNESS: Melva Morfin is a 63-year-old female who is status post Marisela-en-Y gastric bypass in March 2014. Initially her body mass index was 43.8. She reported 3 months ago doing well however now she comes in with reports of burning of the chest and has history of reflux and stricture. Today she comes in with a body mass index of 32.7. She has gained 4 pounds in 3 months. She had presented at her heaviest weight of 224 pounds for a 5 foot frame. Her ideal body weight is 127 pounds. She comes in now weighing 167 pounds from 163 pounds, 3 months. Her body mass index has been reduced from 43.8 down to 32.7. Percent excess weight loss is 59 %. PHYSICAL EXAM: VITAL SIGNS: 5 feet; 167 pounds, body mass index 32.7 Vital Signs Temp 97.6 F 09/22/18 16:11 Pulse 76 09/22/18 16:11 Resp BP 121/79 09/22/18 16:11 Pulse Ox GENERAL: Well-developed female in no acute distress. ABDOMEN: Soft, nontender, nondistended. MUSCULOSKELETAL: No clubbing, cyanosis, or edema. NECK: Supple without lymphadenopathy. CHEST: Unlabored respirations. Equal bilateral excursions. CARDIOVASCULAR: Regular rate and rhythm. NEURO: No focal or lateralizing signs. Cranial nerves II through XII. PSYCH: Appropriate affect. Alert and noted person place and time. HEENT: No scleral icterus. Extraocular grossly intact. Hears conversational speech. No nasal drainage. SKIN: Good skin turgor. Well-perfused. LABS: TSH level elevated consistent with hypothyroidism ASSESSMENT: 1. Morbid obesity due to excess caloric intake. 2. Body mass index reduced from 43.8 to 32.7. 3. Status post Marisela-en-Y gastric bypass. 4. History of gastrojejunal stricture 5. Gastroesophageal reflux disease 6. Elevated TSH, hypothyroidism PLAN: 1. Recommend upper endoscopy for history of gastrojejunal stricture. 2. With pre-existing history of gastroesophageal reflux disease, recommend Protonix 3. Bariatric labs also reviewed in detail demonstrating no nutritional deficiencies 4. Recommend increasing adjustment of thyroid medication for hypothyroidism Objective - Vital Signs Vital signs: Vital Signs Temp 97.6 F 09/22/18 16:11 Pulse 76 09/22/18 16:11 Resp BP 121/79 09/22/18 16:11 Pulse Ox Intake & Output 09/21/18 09/22/18 09/22/18 18:59 06:59 18:59 Weight 75.886 kg
== END | disposition home or self-care (01) ==
LOC: BARWHC3 14:56
PROVIDERS: ATTEND Surgery Plastic and Reconstructive Surgery
DX: Z48.815 Encounter for surgical aftercare following surgery on the digestive system (principal); E66.01 Morbid (severe) obesity due to excess calories; K21.9 Gastro-esophageal reflux disease without esophagitis; E03.9 Hypothyroidism, unspecified; R94.6 Abnormal results of thyroid function studies; Z68.32 Body mass index [BMI] 32.0-32.9, adult; Z87.19 Personal history of other diseases of the digestive system; Z98.84 Bariatric surgery status
CPT/HCPCS: 99211

== ENCOUNTER → 2018-09-30 | Outpatient (CLI) | payer BC ==
[2018-09-30 18:50] LABS: Albumin/Globulin Ratio 2.67 (1.20-2.10); Anion Gap 5.2 mmol/L (4.00-12.00); Calcium 9.4 mg/dL (8.7-10.3); Carbon Dioxide 30.8 mmol/L (21.6-31.8); Globulin 1.5 g/dL (2.1-3.7); Potassium 4.6 mmol/L (3.5-5.5); Total Bilirubin 1.1 mg/dL (0.2-1.2); Total Protein 5.5 g/dL (6.2-8.2)
[2018-09-30 18:51] LABS: Vitamin D 25 Hydroxy 65.2 ng/mL (30.0-100.0)
[2018-09-30 18:57] LABS: T4, Free (Free Thyroxine) 1.3 ng/dL (0.80-1.80)
[2018-09-30 20:01] LABS: Parathyroid Hormone Intact 50.3 pg/mL (14.0-72.0)
== END | disposition home or self-care (01) ==
LOC: LABWHC1 10:48
PROVIDERS: ATTEND Internal Medicine Endocrinology, Diabetes & Metabolism
DX: E03.8 Other specified hypothyroidism (principal); E55.9 Vitamin D deficiency, unspecified
CPT/HCPCS: 36415; 80053; 82306; 83970; 84439; 84480

== ENCOUNTER 2018-12-25 15:24 | Inpatient (IN) | payer BC, MEDICARE ==
[2018-12-25] MEDS ORDERED: ASPIRIN 81 MG PO STA (15:52)
[2018-12-25] MEDS ORDERED: HEPARIN SODIUM,PORCINE 5,000 UNIT/ML 1 ML VIAL IV PRN (15:53)
[2018-12-25] MEDS ORDERED: HEPARIN SODIUM,PORCINE 5,000 UNIT/ML 1 ML VIAL IV ONE (15:53)
[2018-12-25] MEDS ORDERED: DILTIAZEM DRIP BOLUS FROM BAG 1 MG SOLN IV ONE (15:54)
[2018-12-25] MEDS ORDERED: DILTIAZEM 125 MG in SODIUM CHLORIDE 0.9% 100 ML IV SCH (16:00)
--- NOTE | 2018-12-25 16:13 | ED ---
Chest Pain HPI - General Chief Complaint: Chest Pain Stated Complaint: Chest Pain Time Seen by Provider: 12/25/18 15:52 Source: patient, RN notes reviewed Mode of arrival: wheelchair Limitations: no limitations - History of Present Illness Initial Comments: This is a 63-year-old female with no prior history of atrial fibrillation who does present with complaints of elevated heart rate and some chest discomfort. She also has a little bit of lightheadedness and weakness. No fevers chills nausea vomiting sweats she has had a cough and some rhinorrhea apparently. No other complaints this time no recent alcohol consumption no new medications. She is on thyroid medication she states her numbers were spot on about 3 months ago last check. MD Complaint: chest pain - Related Data Home Medications Medication Instructions Recorded Confirmed Levothyroxine Sodium [Synthroid] 175 mcg PO DAILY 02/23/14 12/25/18 traMADol HCL [Tramadol HCl] 50 - 100 mg PO Q6HR PRN 10/17/14 12/25/18 Multivitamins, Thera [Multivitamin] 1 tab PO DAILY 07/31/16 12/25/18 Cyclobenzaprine [Flexeril] 5 mg PO HS PRN 09/09/17 12/25/18 ALPRAZolam [Xanax] 0.5 mg PO BID PRN 04/27/18 12/25/18 Vitamin A 16,000 unit PO DAILY 04/27/18 12/25/18 Albuterol Inhaler [Ventolin Hfa 2 puff INHALATION RT-Q6H PRN 12/25/18 12/25/18 Inhaler] Azithromycin [Zithromax Z-pack] See Taper PO DIRECTED 12/25/18 12/25/18 Cholecalciferol (Vitamin D3) 20,000 unit PO DAILY 12/25/18 12/25/18 [Vitamin D3] Sertraline HCl [Zoloft] 25 mg PO DAILY 12/25/18 12/25/18 Allergies Allergy/AdvReac Type Severity Reaction Status Date / Time Penicillins Allergy Swelling Verified 12/25/18 16:16 of legs Review of Systems ROS Statement: Those systems with pertinent positive or pertinent negative responses have been documented in the HPI. ROS Other: All systems not noted in ROS Statement are negative. EKG Findings - EKG Results: EKG: interpreted by [facility] (Atrial fibrillation with a rapid ventricular response rate of 199 QRS of 70 QT since QTC 2:30/[address] abnormality seen in the inferior and anterior leads.) Past Medical History Past Medical History: Fibromyalgia, Musculoskeletal Disorder, Thyroid Disorder Additional Past Medical History / Comment(s): ALBARO'S, CHRONIC BACK PAIN, STATES "IRREGULAR HEART BEAT", History of Any Multi-Drug Resistant Organisms: None Reported Past Surgical History: Appendectomy, Bariatric Surgery, Breast Surgery, Section, Heart Catheterization, Hernia Repair, Hysterectomy, Joint Replacement, Tonsillectomy, Tubal Ligation Additional Past Surgical History / Comment(s): BILAT TKA, FOOT SX. Colonoscopy, EGD1, Hx.gastric bypass with esophagus repair (March 2015), HIATAL HERNIA, VENTRAL HERNIA Past Anesthesia/Blood Transfusion Reactions: No Reported Reaction Past Psychological History: Anxiety Smoking Status: Never smoker Past Alcohol Use History: None Reported Past Drug Use History: None Reported - Past Family History Father Family Medical History: Coronary Artery Disease (CAD) Mother Family Medical History: Cancer Additional Family Medical History / Comment(s): NON-HODGKINS LYMPHOMA Brother(s) Family Medical History: Myocardial Infarction ([place]) Sister(s) Family Medical History: Myocardial Infarction ([place]), Thyroid Disorder General Exam - General Exam Comments Initial Comments: This a well-developed well-nourished awake alert oriented 3 female Limitations: no limitations General appearance: alert, anxious Head exam: Present: atraumatic, normocephalic, normal inspection Eye exam: Present: normal appearance, PERRL, EOMI. Absent: scleral icterus, conjunctival injection, periorbital swelling ENT exam: Present: normal exam, mucous membranes moist Neck exam: Present: normal inspection. Absent: tenderness, meningismus, lymphadenopathy Respiratory exam: Present: normal lung sounds bilaterally. Absent: respiratory distress, wheezes, rales, rhonchi, stridor Cardiovascular Exam: Present: tachycardia, irregular rhythm. Absent: systolic murmur, diastolic murmur, rubs, gallop, clicks GI/Abdominal exam: Present: soft, normal bowel sounds. Absent: distended, tenderness, guarding, rebound, rigid Extremities exam: Present: normal inspection, full ROM, normal capillary refill. Absent: tenderness, pedal edema, joint swelling, calf tenderness Back exam: Present: normal inspection Neurological exam: Present: alert, oriented X3, CN II-XII intact Psychiatric exam: Present: normal affect, normal mood Skin exam: Present: warm, dry, intact, normal color. Absent: rash Course Vital Signs 12/25/18 12/25/18 12/25/18 15:40 16:01 16:37 Temperature 97.7 F Pulse Rate 68 92 Pulse Rate [ 181 H Moving Consultant ] Respiratory 18 20 Rate Blood Pressure 98/67 98/72 O2 Sat by Pulse 100 98 Oximetry - Reevaluation(s) Reevaluation #1: 12/25/18 17:01 Initial review of the patient after the initial encounter with no change subsequently however after IV Cardizem was started the heart rate did improve down to the low 100s. She is feeling better after this. Reevaluation #2: 12/25/18 17:02 Examination patient reveals that she was feeling improved no chest pain no shortness of breath heart rate was approximately 101-105. This was still nature fibrillation rhythm however. Critical Care Time Critical Care Time: Yes Critical Care Time: 39 minutes of critical care time which includes initial presentation with history physical labs x-rays multiple reevaluation the patient discussed with the patient and her regarding the findings. Discussed with Dr. Moreno regarding findings admission orders and documentation of the above. Disposition Clinical Impression: Rapid atrial fibrillation, Upper respiratory infection Disposition: ADMITTED IP TO THIS HOSP Condition: Serious Referrals: Sweetie Moreno MD [Primary Care Provider] - 1-2 days
--- NOTE | 2018-12-25 16:17 | XR ---
EXAMINATION TYPE: XR chest 2V DATE OF EXAM: 12/25/2018 COMPARISON: 11/18/2015 HISTORY: Chest pain TECHNIQUE: Frontal and lateral views of the chest are obtained. FINDINGS: There is no focal air space opacity, pleural effusion, or pneumothorax seen. Slight right hemidiaphragm elevation is noted as seen on the prior. The cardiac silhouette size is within normal l imits. The osseous structures are intact. IMPRESSION: No acute cardiopulmonary process.
[2018-12-25] MEDS: HEPARIN SOD,PORK IN 0.45% NACL 25,000 UNIT in 0.45% NACL 1 250ML.BAG IV SCH (16:21)
[2018-12-25 16:31] LABS: Basophils % (A) 0 %; Eosinophils # (A) 0.1 k/uL (0-0.7); Eosinophils % (A) 1 %; HCT 39.6 % (34.0-46.0); HGB 13.2 gm/dL (11.4-16.0); Lymphocytes # (A) 1.8 k/uL (1.0-4.8); Lymphocytes % (A) 30 %; MCH 30.9 pg (25.0-35.0); MCHC 33.5 g/dL (31.0-37.0); MCV 92.5 fL (80.0-100.0); Mean Platelet Volume 6.1; Monocytes # (A) 0.7 k/uL (0-1.0); Monocytes % (A) 11 %; Neutrophils # (A) 3.2 k/uL (1.3-7.7); Neutrophils % (A) 54 %; Platelet Count 242 k/uL (150-450); RBC 4.28 m/uL (3.80-5.40); RDW 13.5 % (11.5-15.5)
[2018-12-25 16:47] LABS: D-Dimer 0.32 mg/L FEU (<0.60); INR 0.8 (<1.2); Prothrombin Time 9.4 sec (9.0-12.0)
[2018-12-25 16:48] LABS: ALT 36 U/L (9-52); AST 34 U/L (14-36); Albumin 3.8 g/dL (3.5-5.0); Alkaline Phosphatase 116 U/L (38-126); Anion Gap 9 mmol/L; Blood Urea Nitrogen 15 mg/dL (7-17); Calcium 9.4 mg/dL (8.4-10.2); Carbon Dioxide 26 mmol/L (22-30); Chloride 102 mmol/L (98-107); Glucose 138 mg/dL (74-99); Potassium 3.7 mmol/L (3.5-5.1); Sodium 137 mmol/L (137-145); Total Bilirubin 0.7 mg/dL (0.2-1.3); Total Protein 6.3 g/dL (6.3-8.2)
[2018-12-25] MEDS ORDERED: NALOXONE 0.4 MG/ML 1 ML VIAL IV PRN (17:05)
[2018-12-25] MEDS ORDERED: traMADol 50 MG TAB PO PRN (17:08)
[2018-12-25] MEDS ORDERED: ALBUTEROL NEBULIZED 2.5 MG/3 ML INHALATION PRN (17:08)
[2018-12-25 21:58] VITALS: BMI 34.2
[2018-12-25] MEDS: CYCLOBENZAPRINE 5 MG TAB PO PRN (22:08)
[2018-12-25] MEDS: ALPRAZolam 0.5 MG TAB PO PRN (22:09)
[2018-12-26] MEDS ORDERED: METOPROLOL TARTRATE 25 MG TAB PO STA (00:08)
[2018-12-26] MEDS: SODIUM CHLORIDE 0.9% 1,000 ML IV SCH ×2 (00:27→16:59)
[2018-12-26 04:41] LABS: Basophils % (A) 0 %; Eosinophils % (A) 1 %; HCT 35.8 % (34.0-46.0); HGB 12.2 gm/dL (11.4-16.0); Lymphocytes # (A) 2.4 k/uL (1.0-4.8); Lymphocytes % (A) 49 %; MCH 31.4 pg (25.0-35.0); MCHC 34.1 g/dL (31.0-37.0); MCV 92.3 fL (80.0-100.0); Mean Platelet Volume 5.9; Monocytes # (A) 0.4 k/uL (0-1.0); Monocytes % (A) 9 %; Neutrophils # (A) 1.9 k/uL (1.3-7.7); Neutrophils % (A) 38 %; Platelet Count 216 k/uL (150-450); RBC 3.88 m/uL (3.80-5.40); RDW 13.4 % (11.5-15.5); WBC 4.9 k/uL (3.8-10.6)
[2018-12-26] MEDS: LEVOTHYROXINE 100 MCG TAB PO SCH (06:26)
[2018-12-26] MEDS: LEVOTHYROXINE 75 MCG TAB PO SCH (06:26)
[2018-12-26] MEDS: CHOLECALCIFEROL 20000 UNIT PO SCH (08:21)
[2018-12-26] MEDS: VITAMIN A PO SCH (08:21)
[2018-12-26] MEDS: MULTIVITAMINS, THERA 1 EACH TAB PO SCH (08:35)
[2018-12-26] MEDS: SERTRALINE 25 MG TAB PO SCH (08:35)
[2018-12-26] MEDS: METOPROLOL TARTRATE 25 MG TAB PO SCH ×2 (08:35→22:25)
--- NOTE | 2018-12-26 14:16 | P.CRDCN ---
History of Present Illness History of present illness: This is a pleasant 63-year-old female with no significant past medical history. She denies history of coronary artery disease, hypertension, dyslipidemia or diabetes mellitus. She has seen Dr. Piña in the office in the past and has undergone cardiac catheterization in 2005 which revealed minimal nonobstructive CAD. We have been asked to see her in consultation secondary to atrial fibrillation. She states she started taking a Z-Greg on Thursday of last week secondary to upper respiratory cough and congestion. Then yesterday afternoon while sitting down she started feeling her heart racing and pounding very hard in her chest. She denies chest pain, shortness of breath or dizziness associated with these palpitations. She does describe having an episode of discomfort in the left elbow region described as a known heavy feeling. Upon arrival to the emergency department EKG reveals atrial fibrillation with rapid ventricular response heart rate was [address] depression noted in the precordial leads. She was initiated on heparin infusion, Cardizem drip and subsequently converted to sinus mechanism. Repeat EKG reveals resolution of the diffuse ST depression. She is seen and examined resting comfortably in bed in no acute distress. She denies any further symptoms of palpitations. She also denies chest pain, shortness of breath, dizziness, nausea, vomiting or diaphoresis. Chest x-ray obtained on admission and negative for acute cardiopulmonary process. Laboratory data reviewed, WBC 4.9, hemoglobin 12.2, d- dimer 0.32, sodium 137, potassium 3.7, creatinine 0.57, magnesium 2.0, cardiac enzymes less than 0.012, 0.141 and 0.119, NT proBNP 136 and TSH 2.1. At the time of my exam: CONSTITUTIONAL: Denies fever. Denies chills. EYES: Denies blurred vision. Denies vision changes. Denies eye pain. EARS, NOSE, MOUTH & THROAT: Denies headache. Denies sore throat. Denies ear pain. CARDIOVASCULAR: Denies chest pain. Denies shortness of breath. Denies orthopnea. Denies PND. Denies palpitations. RESPIRATORY: Denies cough. GASTROINTESTINAL: Denies abdominal pain. Denies diarrhea. Denies constipation. Denies nausea. Denies vomiting. MUSCULOSKELETAL: Denies myalgias. INTEGUMENTARY: Denies pruitis. Denies rash. NEUROLOGIC: Denies numbness. Denies tingling. Denies weakness. PSYCHIATRIC: Denies anxiety. Denies depression. ENDOCRINE: Denies fatigue. Denies weight change. Denies polydipsia. Denies polyurina. GENITOURINARY: Denies burning, hematuria or urgency with micturation. HEMATOLOGIC: Denies history of anemia. Denies bleeding. Blood pressure 99/62 heart rate 72 afebrile maintaining oxygen saturation on room air GENERAL: This is a 63-year-old female in no apparent distress at the time of my examination. HEENT: Head is atraumatic, normocephalic. Pupils are equal, round. Sclerae anicteric. Conjunctivae are clear. Mucous membranes of the mouth are moist. Neck is supple. There is no jugular venous distention. No carotid bruit is heard. LUNGS: Clear to auscultation no wheezes, rales or rhonchi. No chest wall tenderness is noted on palpation or with deep breathing. HEART: Regular rate and rhythm with systolic ejection murmur at the left sternal border, no rubs or gallops. S1 and S2 heard. ABDOMEN: Soft, nontender. Bowel sounds are heard. No organomegaly noted. EXTREMITIES: No evidence of peripheral edema and no calf tenderness noted. VASCULAR: Radial and dorsalis pedis pulses palpated, no evidence of clubbing. NEUROLOGIC: Patient is awake, alert and oriented x3. ASSESSMENT New onset paroxysmal atrial fibrillation with rapid ventricular response. Has converted to sinus mechanism. Mild troponin elevation not indicative of an acute myocardial infarction most likely secondary to rapid ventricular rates on admission. Hypothyroidism Minimal nonobstructive coronary artery disease per cath in 2006 with a normal stress test in 2016. PLAN Cardizem infusion has been discontinued. She has been initiated on metoprolol 25 mg twice a day. Obtain 2-D echocardiogram and Doppler study to assess cardiac structure and function. Continue heparin infusion until echo has been reviewed due to EKG changes. CHADS-VASC score is only 1 for being a female, therefore roasterman anticoagulation is not indicated. Will pursue stress testing to assess for stress induced ischemia. Thank you kindly for this consultation. Nurse Practitioner note has been reviewed, I agree with a documented findings and plan of care. Patient was seen and examined. Past Medical History Past Medical History: Fibromyalgia, Musculoskeletal Disorder, Thyroid Disorder Additional Past Medical History / Comment(s): ALBARO'S, CHRONIC BACK PAIN History of Any Multi-Drug Resistant Organisms: None Reported Past Surgical History: Appendectomy, Bariatric Surgery, Breast Surgery, Section, Heart Catheterization, Hernia Repair, Hysterectomy, Joint Replacement, Tonsillectomy, Tubal Ligation Additional Past Surgical History / Comment(s): BILAT TKA, FOOT SX. Colonoscopy, EGD1, Hx.gastric bypass with esophagus repair (March 2015), HIATAL HERNIA, VENTRAL HERNIA Past Anesthesia/Blood Transfusion Reactions: No Reported Reaction Past Psychological History: Anxiety Smoking Status: Never smoker Past Alcohol Use History: None Reported Past Drug Use History: None Reported - Past Family History Father Family Medical History: Coronary Artery Disease (CAD) Mother Family Medical History: Cancer Additional Family Medical History / Comment(s): NON-HODGKINS LYMPHOMA Brother(s) Family Medical History: Myocardial Infarction ([place]) Sister(s) Family Medical History: Myocardial Infarction ([place]), Thyroid Disorder Medications and Allergies Home Medications Medication Instructions Recorded Confirmed Type Levothyroxine Sodium [Synthroid] 175 mcg PO DAILY 02/23/14 12/25/18 History traMADol HCL [Tramadol HCl] 50 - 100 mg PO Q6HR PRN 10/17/14 12/25/18 History Multivitamins, Thera [Multivitamin] 1 tab PO DAILY 07/31/16 12/25/18 History Cyclobenzaprine [Flexeril] 5 mg PO HS PRN 09/09/17 12/25/18 History ALPRAZolam [Xanax] 0.5 mg PO BID PRN 04/27/18 12/25/18 History Vitamin A 16,000 unit PO DAILY 04/27/18 12/25/18 History Albuterol Inhaler [Ventolin Hfa 2 puff INHALATION RT-Q6H PRN 12/25/18 12/25/18 History Inhaler] Azithromycin [Zithromax Z-pack] See Taper PO DIRECTED 12/25/18 12/25/18 History Cholecalciferol (Vitamin D3) 20,000 unit PO DAILY 12/25/18 12/25/18 History [Vitamin D3] Sertraline HCl [Zoloft] 25 mg PO DAILY 12/25/18 12/25/18 History Allergies Allergy/AdvReac Type Severity Reaction Status Date / Time Penicillins Allergy Swelling Verified 12/25/18 16:16 of legs Physical Exam Vitals: Vital Signs Temp Pulse Pulse Pulse Resp BP BP 12/26/18 12:00 96.2 F L 72 20 99/62 12/26/18 08:00 97.1 F L 74 18 105/62 12/26/18 04:00 97.8 F 60 18 91/62 12/26/18 00:00 97.8 F 76 18 92/63 12/25/18 21:53 96.9 F L 86 18 108/70 12/25/18 20:00 96.9 F L 86 18 108/70 12/25/18 18:55 98.9 F 85 18 101/71 12/25/18 18:29 98.9 F 122 H 18 98/76 12/25/18 17:50 129 H 18 99/62 12/25/18 16:37 92 20 98/72 12/25/18 16:01 181 H 12/25/18 15:40 97.7 F 68 18 98/67 Pulse Ox 12/26/18 12:00 97 12/26/18 08:00 97 12/26/18 04:00 98 12/26/18 00:00 94 L 12/25/18 21:53 97 12/25/18 20:00 97 12/25/18 18:55 99 12/25/18 18:29 98 12/25/18 17:50 98 12/25/18 16:37 98 12/25/18 16:01 12/25/18 15:40 100 Intake and Output 12/25/18 12/26/18 12/26/18 21:59 06:59 14:59 Intake Total 240 Output Total 600 Balance -360 Intake: Oral 240 Output: Urine 600 Other: # Voids Weight Results 12/26/18 04:00 12/25/18 16:00 Cardiac Enzymes 12/25/18 12/25/18 12/25/18 Range/Units 16:00 16:00 22:35 AST 34 (14-36) U/L Troponin I <0.012 0.141 H* (0.000-0.034) ng/mL 12/26/18 Range/Units 04:00 AST (14-36) U/L Troponin I 0.119 H* (0.000-0.034) ng/mL Coagulation 12/25/18 12/25/1812/26/19 Range/Units 16:00 22:35 06:36 PT 9.4 (9.0-12.0) sec APTT 25.0 49.5 H 49.1 H (22.0-30.0) sec CBC 12/25/18 12/26/18 Range/Units 16:00 04:00 WBC 6.0 4.9 (3.8-10.6) k/uL RBC 4.28 3.88 (3.80-5.40) m/uL Hgb 13.2 12.2 (11.4-16.0) gm/dL Hct 39.6 35.8 (34.0-46.0) % Plt Count 242 216 (150-450) k/uL Comprehensive Metabolic Panel 12/25/18 Range/Units 16:00 Sodium 137 (137-145) mmol/L Potassium 3.7 (3.5-5.1) mmol/L Chloride 102 (98-107) mmol/L Carbon Dioxide 26 (22-30) mmol/L BUN 15 (7-17) mg/dL Creatinine 0.57 (0.52-1.04) mg/dL Glucose 138 H (74-99) mg/dL Calcium 9.4 (8.4-10.2) mg/dL AST 34 (14-36) U/L ALT 36 (9-52) U/L Alkaline Phosphatase 116 (38-126) U/L Total Protein 6.3 (6.3-8.2) g/dL Albumin 3.8 (3.5-5.0) g/dL Current Medications Generic Name Dose Route Start Last Admin Trade Name Danteq PRN Reason Stop Dose Admin Albuterol Sulfate 2.5 mg 12/25/18 17:08 Ventolin Nebulized INHALATION RT-Q6H PRN Shortness Of Breath Alprazolam 0.5 mg 12/25/18 17:08 12/25/18 22:09 Xanax PO 0.5 mg BID PRN Administration Anxiety Cyclobenzaprine HCl 5 mg 12/25/18 17:08 12/25/18 22:08 Flexeril PO 5 mg HS PRN Administration muscle spasms Heparin Sodium (Porcine) 0 unit 12/25/18 15:53 Heparin IV PER PROTOCOL PRN Low PTT Protocol Heparin Sodium/Sodium Chloride 250 mls @ 8.927 mls/hr 12/25/18 16:00 12/25/18 16:21 25,000 unit/ Sodium Chloride IV 12 units/kg/hr .Q24H MELVA 8.927 mls/hr Administration Protocol 12 UNITS/KG/HR Sodium Chloride 1,000 mls @ 20 mls/hr 12/25/18 17:15 12/26/18 00:27 Saline 0.9% IV Not Given .Q24H MELVA Levothyroxine Sodium 100 mcg 12/26/18 06:30 12/26/18 06:26 Synthroid PO 100 mcg DAILY@0630 MELVA Administration Levothyroxine Sodium 75 mcg 12/26/18 06:30 12/26/18 06:26 Synthroid PO 75 mcg DAILY@0630 MELVA Administration Metoprolol Tartrate 25 mg 12/26/18 09:00 12/26/18 08:35 Lopressor PO 25 mg BID MELVA Administration Multivitamins 1 each 12/26/18 12:00 12/26/18 08:35 Theragran PO 1 each DAILY@1200 [facility] Administration Naloxone HCl 0.2 mg 12/25/18 17:05 Narcan IV Q2M PRN Opioid Reversal Non-Formulary Medication 20,000 unit 12/26/18 09:00 12/26/18 08:21 Cholecalciferol (Vitamin D3) [Vitamin D3] PO Not Given DAILY [facility] Non-Formulary Medication 16,000 unit 12/26/18 09:00 12/26/18 08:21 Vitamin A [Vitamin A] PO Not Given DAILY [facility] Sertraline HCl 25 mg 12/26/18 09:00 12/26/18 08:35 Zoloft PO 25 mg DAILY [facility] Administration Tramadol HCl 50 mg 12/25/18 17:08 Ultram PO Q6HR PRN Pain Intake and Output 12/25/18 12/26/18 12/26/18 21:59 06:59 14:59 Intake Total 240 Output Total 600 Balance -360 Intake: Oral 240 Output: Urine 600 Other: # Voids Weight 12/26/18 04:00 12/25/18 16:00
--- NOTE | 2018-12-26 14:24 | P.HPIM ---
History of Present Illness H&P Date: 12/26/18 Chief Complaint: Palpitations This is a 63-year-old female with a past medical history of gastric bypass, hypothyroidism, and hiatal hernia with repair. Patient had complaints of elevated and irregular heart rate with some chest discomfort and lightheadedness. Patient reports she was at home when she developed palpitations and the feeling of her heart pounding, she then proceeded to grab her stethoscope and noticed that she had an irregular heart beat, she then proceeded to the ER. Initial EKG showed atrial fibrillation with RVR with a rate of 199. She was given IV Cardizem, rate did improve to low 100s, she was started on a Cardizem drip, then switch to oral metoprolol. Currently heart rate remains between 60-80s. Blood pressure stable at 91/62, she remains afebrile. She is currently in sinus rhythm. She is on a heparin drip for anticoagulation. Troponins 0.12, 0.141, 0.119, AST 4.9, hemoglobin 12.2, sodium 137, potassium 3.7, BUN 15, creatinine 0.57 TSH 2.1. Chest x-ray did not reveal any acute cardiopulmonary process. This morning she states she is feeling well she, she denies any further chest pain or palpitations, or shortness of breath. Cardiology has been consulted. Review of Systems Constitutional: Denies chills, Denies fatigue, Denies fever, Denies weakness Ears, nose, mouth and throat: Denies headache, Denies hoarseness, Denies nasal congestion, Denies nasal discharge, Denies nose pain Cardiovascular: Reports chest pain, Reports irregular heart beat, Reports rapid heart beat, Reports shortness of breath Respiratory: Denies congestion, Denies cough, Denies cough with sputum, Denies pain, Denies snoring, Denies wheezing Gastrointestinal: Denies abdominal pain, Denies constipation, Denies nausea, Denies vomiting Genitourinary: Denies dysuria, Denies nocturia Neurological: Denies headaches, Denies loss of vision, Denies memory loss, Denies numbness, Denies paralysis, Denies seizures, Denies syncope Psychiatric: Denies anxiety, Denies confusion Past Medical History Past Medical History: Fibromyalgia, Musculoskeletal Disorder, Thyroid Disorder Additional Past Medical History / Comment(s): ALBARO'S, CHRONIC BACK PAIN History of Any Multi-Drug Resistant Organisms: None Reported Past Surgical History: Appendectomy, Bariatric Surgery, Breast Surgery, Section, Heart Catheterization, Hernia Repair, Hysterectomy, Joint Replacement, Tonsillectomy, Tubal Ligation Additional Past Surgical History / Comment(s): BILAT TKA, FOOT SX. Colonoscopy, EGD1, Hx.gastric bypass with esophagus repair (March 2015), HIATAL HERNIA, VENTRAL HERNIA Past Anesthesia/Blood Transfusion Reactions: No Reported Reaction Past Psychological History: Anxiety Smoking Status: Never smoker Past Alcohol Use History: None Reported Past Drug Use History: None Reported - Past Family History Father Family Medical History: Coronary Artery Disease (CAD) Mother Family Medical History: Cancer Additional Family Medical History / Comment(s): NON-HODGKINS LYMPHOMA Brother(s) Family Medical History: Myocardial Infarction ([place]) Sister(s) Family Medical History: Myocardial Infarction ([place]), Thyroid Disorder Medications and Allergies Home Medications Medication Instructions Recorded Confirmed Type Levothyroxine Sodium [Synthroid] 175 mcg PO DAILY 02/23/14 12/25/18 History traMADol HCL [Tramadol HCl] 50 - 100 mg PO Q6HR PRN 10/17/14 12/25/18 History Multivitamins, Thera [Multivitamin] 1 tab PO DAILY 07/31/16 12/25/18 History Cyclobenzaprine [Flexeril] 5 mg PO HS PRN 09/09/17 12/25/18 History ALPRAZolam [Xanax] 0.5 mg PO BID PRN 04/27/18 12/25/18 History Vitamin A 16,000 unit PO DAILY 04/27/18 12/25/18 History Albuterol Inhaler [Ventolin Hfa 2 puff INHALATION RT-Q6H PRN 12/25/18 12/25/18 History Inhaler] Azithromycin [Zithromax Z-pack] See Taper PO DIRECTED 12/25/18 12/25/18 History Cholecalciferol (Vitamin D3) 20,000 unit PO DAILY 12/25/18 12/25/18 History [Vitamin D3] Sertraline HCl [Zoloft] 25 mg PO DAILY 12/25/18 12/25/18 History Allergies Allergy/AdvReac Type Severity Reaction Status Date / Time Penicillins Allergy Swelling Verified 12/25/18 16:16 of legs Physical Exam Vitals: Vital Signs Temp Pulse Pulse Pulse Resp BP BP 12/26/18 12:00 96.2 F L 72 20 99/62 12/26/18 08:00 97.1 F L 74 18 105/62 12/26/18 04:00 97.8 F 60 18 91/62 12/26/18 00:00 97.8 F 76 18 92/63 12/25/18 21:53 96.9 F L 86 18 108/70 12/25/18 20:00 96.9 F L 86 18 108/70 12/25/18 18:55 98.9 F 85 18 101/71 12/25/18 18:29 98.9 F 122 H 18 98/76 12/25/18 17:50 129 H 18 99/62 12/25/18 16:37 92 20 98/72 12/25/18 16:01 181 H 12/25/18 15:40 97.7 F 68 18 98/67 Pulse Ox 12/26/18 12:00 97 12/26/18 08:00 97 12/26/18 04:00 98 12/26/18 00:00 94 L 12/25/18 21:53 97 12/25/18 20:00 97 12/25/18 18:55 99 12/25/18 18:29 98 12/25/18 17:50 98 12/25/18 16:37 98 12/25/18 16:01 12/25/18 15:40 100 Intake and Output 12/25/18 12/26/18 12/26/18 21:59 06:59 14:59 Intake Total 240 Output Total 600 Balance -360 Intake: Oral 240 Output: Urine 600 Other: # Voids Weight - Constitutional General appearance: cooperative, no acute distress - EENT Eyes: EOMI, PERRLA - Neck Neck: no lymphadenopathy, normal ROM, no stridor, no thyromegaly Thyroid: bilateral: normal size, negative: enlarged, firm, nodule - Respiratory Respiratory: bilateral: CTA, negative: diminished, dullness, rales, rhonchi, wheezing - Cardiovascular Rhythm: regular Heart sounds: normal: S1, S2 - Gastrointestinal General gastrointestinal: no distended, no organomegaly, soft, no tenderness - Neurologic Neurologic: CNII-XII intact - Musculoskeletal Musculoskeletal: gait normal, strength equal bilaterally - Psychiatric Psychiatric: A&O x's 3, appropriate affect, intact judgment & insight Results CBC & Chem 7: 12/26/18 04:00 12/25/18 16:00 Labs: Abnormal Lab Results - Last 24 Hours (Table) 12/25/18 12/25/18 12/25/18 Range/Units 16:00 22:35 22:35 APTT 49.5 H (22.0-30.0) sec Glucose 138 H (74-99) mg/dL Troponin I 0.141 H* (0.000-0.034) ng/mL 12/26/18 12/26/18 Range/Units 04:00 06:36 APTT 49.1 H (22.0-30.0) sec Glucose (74-99) mg/dL Troponin I 0.119 H* (0.000-0.034) ng/mL Thrombosis Risk Factor Assmnt - Choose All That Apply Each Factor Represents 1 point: Obesity (BMI >25) Each Risk Factor Represents 2 Points: Age 61-74 years Thrombosis Risk Factor Assessment Total Risk Factor Score: 3 Thrombosis Risk Factor Assessment Level: Moderate Risk Assessment and Plan Plan: 1. A. fib with RVR. Max heart rate 199, patient given IV bolus of Cardizem and started on a Cardizem drip, she converted to normal sinus rhythm, Cardizem discontinued and switched to oral metoprolol 25 mg twice a day, she remains on heparin drip for anticoagulation. Cardiology on consult. 2. Hypothyroidism. TSH 2.1, we'll continue levothyroxine 175 g daily 3. History of gastric bypass. Will continue with multivitamin, vitamin D, and vitamin A 4. History of hiatal hernia with repair. Omeprazole. 5. Generalized anxiety disorder. Continue Xanax 0.5 twice a day as needed and Zoloft 25 mg daily. 6. Fibromyalgia. Continue with tramadol 50 mg every 6 when necessary 7. DVT prophylaxis. Heparin 8. GI prophylaxis. Omeprazole The above impression and plan of care have been discussed and directed by signing physician. Audelia Mittal nurse practitioner acting as scribe for signing physician.
[2018-12-26] MEDS: HEPARIN SOD,PORK IN 0.45% NACL 25,000 UNIT in 0.45% NACL 1 250ML.BAG IV SCH (16:58)
[2018-12-26] MEDS: ALPRAZolam 0.5 MG TAB PO PRN (22:25)
[2018-12-26] MEDS: CYCLOBENZAPRINE 5 MG TAB PO PRN (22:25)
[2018-12-27] MEDS: LEVOTHYROXINE 75 MCG TAB PO SCH (06:41)
[2018-12-27] MEDS: LEVOTHYROXINE 100 MCG TAB PO SCH (06:41)
[2018-12-27] MEDS ORDERED: PANTOPRAZOLE 40 MG TABLET PO SCH (07:30)
[2018-12-27] MEDS: CHOLECALCIFEROL 20000 UNIT PO SCH (09:11)
[2018-12-27] MEDS: MULTIVITAMINS, THERA 1 EACH TAB PO SCH (09:11)
[2018-12-27] MEDS: VITAMIN A PO SCH (09:11)
[2018-12-27 10:06] LABS: Basophils % (A) 0 %; Eosinophils % (A) 0 %; HCT 37.8 % (34.0-46.0); HGB 12.5 gm/dL (11.4-16.0); Lymphocytes # (A) 1.5 k/uL (1.0-4.8); Lymphocytes % (A) 38 %; MCH 30.7 pg (25.0-35.0); MCV 93.3 fL (80.0-100.0); Mean Platelet Volume 6.6; Monocytes # (A) 0.3 k/uL (0-1.0); Monocytes % (A) 7 %; Neutrophils % (A) 53 %; Platelet Count 209 k/uL (150-450); RBC 4.05 m/uL (3.80-5.40); RDW 13.4 % (11.5-15.5); WBC 3.9 k/uL (3.8-10.6)
--- NOTE | 2018-12-27 11:49 | ECHOF ---
Referral Reason:afib, st changes MEASUREMENTS -------- HEIGHT: 149.9 cm WEIGHT: 74.8 kg BP: 94/48 RVIDd: 3.6 cm (< 3.3) IVSd: 1.3 cm (0.6 - 1.1) LVIDd: 3.3 cm (3.9 - 5.3) LVPWd: 1.2 cm (0.6 - 1.1) IVSs: 1.5 cm LVIDs: 2.3 cm LVPWs: 1.4 cm LA Diam: 2.7 cm (2.7 - 3.8) LAESV Index (A-L): 36.36 ml/m Ao Diam: 3.0 cm (2.0 - 3.7) AV Cusp: 2.1 cm (1.5 - 2.6) MV EXCURSION: 14.230 mm (> 18.000) MV EF SLOPE: 26 mm/s (70 - 150) EPSS: 0.2 cm MV E Wesley: 0.79 m/s MV DecT: 303 ms MV A Wesley: 0.94 m/s MV E/A Ratio: 0.84 FINDINGS -------- Sinus rhythm. This was a technically good study. The left ventricular size is normal. There is mild concentric left ventricular hypertrophy. Overa ll left ventricular systolic function is normal with, an EF between 55 - 60 %. The right ventricle is normal in size. LA is moderately dilated 34-39 ml/m2 The right atrial size is normal. There is mild aortic valve sclerosis. There is mild aortic regurgitation. Mild mitral annular calcification present. There is trace to mild mitral regurgitation. Mild tricuspid regurgitation present. Right ventricular systolic pressure is normal at < 35 mmHg. There is no pulmonic regurgitation present. The aortic root size is normal. Normal inferior vena cava with normal inspiratory collapse consistent with estimated right atrial pre ssure of 5 mmHg. There is no pericardial effusion. CONCLUSIONS -------- 1. Sinus rhythm. 2. This was a technically good study. 3. The left ventricular size is normal. 4. There is mild concentric left ventricular hypertrophy. 5. Overall left ventricular systolic function is normal with, an EF between 55 - 60 %. 6. LA is moderately dilated 34-39 ml/m2 7. There is mild aortic valve sclerosis. 8. There is mild aortic regurgitation. 9. Mild mitral annular calcification present. 10. There is trace to mild mitral regurgitation. 11. Mild tricuspid regurgitation present. 12. Right ventricular systolic pressure is normal at < 35 mmHg. 13. There is no pulmonic regurgitation present. 14. The aortic root size is normal. 15. Normal inferior vena cava with normal inspiratory collapse consistent with estimated right atrial pressure of 5 mmHg. 16. There is no pericardial effusion. SCHOOL SUPERINTENDENT: Siria Orozco RDCS
--- NOTE | 2018-12-27 12:38 | EST ---
EXERCISE STRESS DATE OF SERVICE: 12/27/2018 AGE: 63 SEX: Female HT: 59" WT: 165 pounds PROTOCOL: Cardiolite Pawan STAGE: II DURATION OF EXERCISE: 5 minutes 46 seconds HEART RATE REST: 98 BLOOD PRESSURE REST: 151/82 MAXIMUM HEART RATE ACHIEVED: 143 MAXIMUM BLOOD PRESSURE: 145/78 85% MPHR: 133 100% MPHR: 156 METS: 7.1 INDICATIONS: Chest pain. CLINICAL INFORMATION: Baseline rhythm is a sinus mechanism, rate of 98, normal axis and intervals, cannot exclude inferior myocardial infarction. Baseline blood pressure 151/82 mmHg. Patient exercised on Pawan protocol for 5 minute 46 seconds reaching a peak rate 143 beats per minute which is equal to 92% maximum predicted heart rate. Peak blood pressure 145/78 mmHg. Test was terminated secondary to fatigue. There was no chest pain. Electrocardiograph monitoring revealed no evidence of diagnostic ischemic ST deviation. Rare PVCs were noted. Cardiolite was injected at peak exercise. CONCLUSION: 1. Decreased exercise tolerance with occasional PVCs. 2. Normal electrocardiographic response to exercise with no evidence of exercise induced ischemia. 3. Nuclear images will be reported separately. MMODL / IJN: [id number] /
--- NOTE | 2018-12-27 12:58 | NM ---
EXAMINATION TYPE: NM stress cardiolite complete DATE OF EXAM: 12/27/2018 COMPARISON: NONE HISTORY: Abnormal cardiac enzymes. History of asthma and prior heart catheterization with family hist ory of coronary artery disease presents with palpitations and facial numbness, chest pain per order. TECHNIQUE: After the intravenous administration of 10.3 mCi Tc 99m Sestamibi - Rest images obtained 65 minutes post injection. The patient exercised using a AMOR protocol and 1 minute prior to peak exercise was injected with 25.6 mCi Tc 99m Sestamibi - Stress images obtained 10 minutes post injecti on. FINDINGS: Targeted heart rate was achieved during performance of the study. Review of stress and rest SPECT rafia ges demonstrates no distinct perfusion abnormality. Gated analysis shows normal wall motion with an estimated left ventricular ejection fraction of 72 %. IMPRESSION: No scintigraphic evidence for reversible ischemia
[2018-12-27] MEDS: METOPROLOL TARTRATE 25 MG TAB PO SCH (13:05)
[2018-12-27] MEDS: SERTRALINE 25 MG TAB PO SCH (13:05)
[2018-12-27 13:10] VITALS: BP 102/61; PULSE 91; RESP 18; TEMP 96.7
--- NOTE | 2018-12-27 13:25 | P.DS ---
Providers Date of admission: 12/25/18 17:05 Expected date of discharge: 12/27/18 Attending physician: Sweetie Moreno Consults: 12/25/18 17:06 Consult Physician Routine Consulting Provider: Shadia Roman Consult Reason/Comments: Rapid atrial fibrillation Do you want consulting provider notified?: Yes Primary care physician: Sweetie Moreno Hospital Course: This is a 63-year-old female with a past medical history of gastric bypass, hypothyroidism, and hiatal hernia with repair. Patient had complaints of elevated and irregular heart rate with some chest discomfort and lightheadedness. Patient reports she was at home when she developed palpitations and the feeling of her heart pounding, she then proceeded to grab her stethoscope and noticed that she had an irregular heart beat, she then proceeded to the ER. Initial EKG showed atrial fibrillation with RVR with a rate of 199. She was given IV Cardizem, rate did improve to low 100s, she was started on a Cardizem drip, then switch to oral metoprolol. Currently heart rate remains between 60-80s. Blood pressure stable at 91/62, she remains afebrile. She is currently in sinus rhythm. She is on a heparin drip for anticoagulation. Troponins 0.12, 0.141, 0.119, AST 4.9, hemoglobin 12.2, sodium 137, potassium 3.7, BUN 15, creatinine 0.57 TSH 2.1. Chest x-ray did not reveal any acute cardiopulmonary process. This morning she states she is feeling well she, she denies any further chest pain or palpitations, or shortness of breath. Cardiology has been consulted. 12/27: Patient states that she slept all right last night. She states she had some palpitations for about an hour which she thought was related to gas but otherwise no further episodes. Patient has been seen by cardiology, she is off the Cardizem drip and started on metoprolol 25 mg twice daily. She has converted to a sinus rhythm with rate controlled in the 70s to 80s. Echocardiogram reveals EF of 55-60% with mild concentric left ventricular hypertrophy, probably moderately dilated 34-39, mild aortic regurgitation, mild mitral regurgitation, mild tricuspid regurgitation. Heparin drip has been discontinued. No long-term anticoagulation is indicated due to CHADS-VASC score of 1. Patient has been scheduled for echo stress test that revealed normal with no evidence of exercise-induced ischemia. Patient will be discharged home today in stable condition. Discharge diagnoses: 1. A. fib with RVR, paroxysmal atrial fibrillation, currently in normal sinus rhythm. 2. ST depression in precordial leads on presentation, resolved. 3. Hypothyroidism. 4. History of gastric bypass. 5. History of hiatal hernia with repair. 6. Generalized anxiety disorder. 7. Fibromyalgia. Discharge plan: Home Impression and plan of care have been directed as dictated by the signing physician. Naila Harkins nurse practitioner acting as scribe for signing physician. Patient Condition at Discharge: Good Plan - Discharge Summary New Discharge Prescriptions: New Metoprolol Tartrate [Lopressor] 25 mg PO BID #60 tab Continue Levothyroxine Sodium [Synthroid] 175 mcg PO DAILY traMADol HCL [Tramadol HCl] 50 - 100 mg PO Q6HR PRN PRN Reason: Pain Multivitamins, Thera [Multivitamin (formulary)] 1 tab PO DAILY Cyclobenzaprine [Flexeril] 5 mg PO HS PRN PRN Reason: muscle spasms ALPRAZolam [Xanax] 0.5 mg PO BID PRN PRN Reason: Anxiety Vitamin A 16,000 unit PO DAILY Azithromycin [Zithromax Z-pack] See Taper PO DIRECTED Albuterol Inhaler [Ventolin Hfa Inhaler] 2 puff INHALATION RT-Q6H PRN PRN Reason: Shortness Of Breath Sertraline HCl [Zoloft] 25 mg PO DAILY Cholecalciferol (Vitamin D3) [Vitamin D3] 20,000 unit PO DAILY Discharge Medication List Levothyroxine Sodium [Synthroid] 175 mcg PO DAILY 02/23/14 [History] traMADol HCL [Tramadol HCl] 50 - 100 mg PO Q6HR PRN 10/17/14 [History] Multivitamins, Thera [Multivitamin (formulary)] 1 tab PO DAILY 07/31/16 [History] Cyclobenzaprine [Flexeril] 5 mg PO HS PRN 09/09/17 [History] ALPRAZolam [Xanax] 0.5 mg PO BID PRN 04/27/18 [History] Vitamin A 16,000 unit PO DAILY 04/27/18 [History] Albuterol Inhaler [Ventolin Hfa Inhaler] 2 puff INHALATION RT-Q6H PRN 12/25/18 [History] Azithromycin [Zithromax Z-pack] See Taper PO DIRECTED 12/25/18 [History] Cholecalciferol (Vitamin D3) [Vitamin D3] 20,000 unit PO DAILY 12/25/18 [History] Sertraline HCl [Zoloft] 25 mg PO DAILY 12/25/18 [History] Metoprolol Tartrate [Lopressor] 25 mg PO BID #60 tab 12/27/18 [Rx] Follow up Appointment(s)/Referral(s): [facility] [Provider Group] - 1 Week Sweetie Moreno MD [Primary Care Provider] - 1 Week Discharge Disposition: HOME SELF-CARE
--- NOTE | 2018-12-27 14:40 | P.PN ---
Subjective Progress Note Date: 12/27/18 This is a pleasant 63-year-old female with no significant past medical history. She denies history of coronary artery disease, hypertension, dyslipidemia or diabetes mellitus. She has seen Dr. Piña in the office in the past and has undergone cardiac catheterization in 2005 which revealed minimal nonobstructive CAD. We have been asked to see her in consultation secondary to atrial fibrillation. She states she started taking a Z-Greg on Thursday of last week secondary to upper respiratory cough and congestion. Then yesterday afternoon while sitting down she started feeling her heart racing and pounding very hard in her chest. She denies chest pain, shortness of breath or dizziness associated with these palpitations. She does describe having an episode of discomfort in the left elbow region described as a known heavy feeling. Upon arrival to the emergency department EKG reveals atrial fibrillation with rapid ventricular response heart rate was [address] depression noted in the precordial leads. She was initiated on heparin infusion, Cardizem drip and subsequently converted to sinus mechanism. Repeat EKG reveals resolution of the diffuse ST depression. She is seen and examined resting comfortably in bed in no acute distress. She denies any further symptoms of palpitations. She also denies chest pain, shortness of breath, dizziness, nausea, vomiting or diaphoresis. Chest x-ray obtained on admission and negative for acute cardiopulmonary process. Laboratory data reviewed, WBC 4.9, hemoglobin 12.2, d- dimer 0.32, sodium 137, potassium 3.7, creatinine 0.57, magnesium 2.0, cardiac enzymes less than 0.012, 0.141 and 0.119, NT proBNP 136 and TSH 2.1. 12/27/2018 Patient was seen and examined today, denied any chest discomfort. Recommended today to undergo stress Cardiolite. Stress Cardiolite was performed which did not reveal any evidence of reversible ischemia. She is hemodynamically stable, from our perspective, she may be able to be discharged home today. Objective - Vital Signs Vital signs: Vital Signs Temp 96.7 F L 12/27/18 13:09 Pulse 91 12/27/18 13:10 Resp 18 12/27/18 13:10 BP 102/61 12/27/18 13:09 Pulse Ox 100 12/27/18 13:09 Intake & Output 12/26/18 12/27/18 12/27/18 18:59 06:59 18:59 Intake Total 690.826 720 Output Total 600 100 Balance 90.826 -100 720 Weight 75 kg Intake: Intake, IV Titration 210.826 Amount Heparin Sod,Pork in 0.45% 210.826 NaCl 25,000 unit In 0.45 % NaCl 1 250ml.bag @ 12 UNITS/KG/HR 8.927 mls/hr IV .Q24H MELVA Rx#: [id number] Oral 480 720 Output: Urine 600 100 Other: Voiding Method Toilet Toilet # Voids 1 2 - Exam GENERAL: This is a 63-year-old female in no apparent distress at the time of my examination. HEENT: Head is atraumatic, normocephalic. Pupils are equal, round. Sclerae anicteric. Conjunctivae are clear. Mucous membranes of the mouth are moist. Neck is supple. There is no jugular venous distention. No carotid bruit is heard. LUNGS: Clear to auscultation no wheezes, rales or rhonchi. No chest wall tenderness is noted on palpation or with deep breathing. HEART: Regular rate and rhythm with systolic ejection murmur at the left sternal border, no rubs or gallops. S1 and S2 heard. ABDOMEN: Soft, nontender. Bowel sounds are heard. No organomegaly noted. EXTREMITIES: No evidence of peripheral edema and no calf tenderness noted. VASCULAR: Radial and dorsalis pedis pulses palpated, no evidence of clubbing. NEUROLOGIC: Patient is awake, alert and oriented x3. - Labs CBC & Chem 7: 12/27/18 09:40 12/25/18 16:00 Labs: Abnormal Lab Results - Last 24 Hours (Table) 12/27/18 Range/Units 09:40 APTT 47.6 H (22.0-30.0) sec Assessment and Plan Plan: ASSESSMENT #1 New onset paroxysmal atrial fibrillation with rapid ventricular response. Has converted to sinus mechanism. #2 Mild troponin elevation not indicative of an acute myocardial infarction most likely secondary to rapid ventricular rates on admission. #3 Hypothyroidism #4 Minimal nonobstructive coronary artery disease per cath in 2005 with a normal stress test in 2016. PLan Stress Cardiolite performed today was negative for any reversible ischemia. From our perspective patient may be able to be discharged home today. Follow-up appointment in the office post discharge. DNP note has been reviewed, I agree with a documented findings and plan of care. Patient was seen and examined.
== END 2018-12-27 15:14 | disposition home or self-care (01) | DRG 310 ==
LOC: EC 15:24 → OBSVTOIN 17:05 → 3SCARD 17:05
PROVIDERS: ADMIT Internal Medicine; ATTEND Internal Medicine
DX: I48.0 Paroxysmal atrial fibrillation (principal); I08.3 Combined rheumatic disorders of mitral, aortic and tricuspid valves; E06.3 Autoimmune thyroiditis; F41.1 Generalized anxiety disorder; M79.7 Fibromyalgia; G89.29 Other chronic pain; M54.9 Dorsalgia, unspecified; R07.89 Other chest pain; I25.10 Atherosclerotic heart disease of native coronary artery without angina pectoris; R77.9 Abnormality of plasma protein, unspecified; Z79.890 Hormone replacement therapy; Z79.899 Other long term (current) drug therapy; Z98.84 Bariatric surgery status; Z88.0 Allergy status to penicillin; Z90.710 Acquired absence of both cervix and uterus; Z90.49 Acquired absence of other specified parts of digestive tract; Z98.51 Tubal ligation status; Z96.653 Presence of artificial knee joint, bilateral; Z80.7 Family history of other malignant neoplasms of lymphoid, hematopoietic and related tissues; Z82.49 Family history of ischemic heart disease and other diseases of the circulatory system; Z83.49 Family history of other endocrine, nutritional and metabolic diseases
CPT/HCPCS: 36415; 71046; 78452; 80053; 83735; 83880; 84443; 84484; 85025; 85379; 85610; 85730; 87502; 93017; 93306; 94760; 96365; 96366; 96368; 96376; 99291

== ENCOUNTER → 2019-08-27 | Outpatient (CLI) | payer MEDICARE ==
--- NOTE | 2019-08-27 15:22 | MR ---
EXAMINATION TYPE: MR brain wo con DATE OF EXAM: 08/27/2019 COMPARISON: HISTORY: Difficulty with speech, imbalance Standard multiplanar, multisequence MRI departmental protocol Multiplanar, multisequence images of the brain were acquired. Diffusion weighted imaging was performe d. FINDINGS: Ventricles have normal size. There is no mass effect nor midline shift. There is no sign of intracranial hemorrhage. There is no evidence of a cortical infarct. There are a few scattered white matter high signal foci on the FLAIR images in both cerebral hemispheres that measure up to 4 mm. To kriss number is approximately 5. Brainstem is intact. There is some right maxillary sinus mucosal thickening. The cerebellum appears n ormal. Corpus callosum is normal. Sella turcica is normal. IMPRESSION: There are few tiny scattered white matter high signal foci of uncertain significance. Otherwise negat evaristo exam. No evidence of cortical infarct.
== END | disposition home or self-care (01) ==
LOC: RADMRIMAIN 11:40
PROVIDERS: ATTEND Psychiatry & Neurology Neurology
DX: R90.89 Other abnormal findings on diagnostic imaging of central nervous system (principal); I67.9 Cerebrovascular disease, unspecified
CPT/HCPCS: 70551

== ENCOUNTER → 2020-08-16 | Outpatient (CLI) | payer MEDICARE ==
[2020-08-16 09:39] LABS: Basophils % (A) 1 %; Eosinophils % (A) 0 %; HCT 39.2 % (34.0-46.0); HGB 12.5 gm/dL (11.4-16.0); Lymphocytes # (A) 1.6 k/uL (1.0-4.8); Lymphocytes % (A) 36 %; MCH 30.8 pg (25.0-35.0); MCV 96.3 fL (80.0-100.0); Mean Platelet Volume 6.8; Monocytes # (A) 0.2 k/uL (0-1.0); Monocytes % (A) 5 %; Neutrophils # (A) 2.6 k/uL (1.3-7.7); Neutrophils % (A) 57 %; Platelet Count 240 k/uL (150-450); RBC 4.07 m/uL (3.80-5.40); RDW 13.6 % (11.5-15.5); WBC 4.6 k/uL (3.8-10.6)
[2020-08-16 15:05] LABS: Protein, Total 5.5 g/dL (6.2-8.2)
[2020-08-16 16:26] LABS: C Reactive Protein <0.4 mg/dL (0.0-0.8); Creatine Kinase 38 U/L (26-186)
[2020-08-16 18:05] LABS: Erythrocyte Sedimentation Rate 17 mm/Hr (0-30)
[2020-08-17 14:28] LABS: Albumin 3.53 g/dL (3.80-4.90); Gamma Globulin 0.52 g/dL (0.70-1.50)
== END | disposition home or self-care (01) ==
LOC: LABWHC1 08:27
PROVIDERS: ATTEND Psychiatry & Neurology Neurology
DX: R73.9 Hyperglycemia, unspecified (principal); R53.83 Other fatigue; R53.1 Weakness; G62.9 Polyneuropathy, unspecified
CPT/HCPCS: 36415; 82550; 82607; 82747; 84165; 84207; 85025; 85652; 86038; 86140; 86618

== ENCOUNTER → 2020-11-07 | Outpatient (CLI) | payer MEDICARE ==
[2020-11-07 13:55] VITALS: BP 136/78; PULSE 73; RESP 18; TEMP 98.3; BMI 34.7
--- NOTE | 2020-11-07 14:42 | P.PN ---
Subjective Progress Note Date: 11/07/20 DATE OF SERVICE: 11/07/20 CHIEF COMPLAINT: Follow-up gastric bypass HISTORY OF PRESENT ILLNESS: Melva Morfin is a 65-year-old female who is status post Marisela-en-Y gastric bypass in March 2014. She is 7 years out. She comes in with new severe abdominal spasms with fainting spells with vasovagal response. S he had recently fainted. She is taking Porbiotics. She has history of severe constipation that improved with Dr Gann for 3 years for bowel movements. She reports new constipation. She reports lower abdominal pain. She eats yogurt for breakfast. Her lowest was 146 pounds. She comes in with moderate weight regain. She is 178 pounds. She is due for a colonoscopy. She reports epigastric pain. She went into atrial fibrillation recently. She is on Metoprolol. She comes in with new seizure as well. She has belt like lower crampy abdominal pain. Her ideal body weight is 127 pounds. She had presented at her heaviest weight of 224 pounds for a 5 foot frame. She comes in now weighing 178 pounds from 167 pounds, 3 years ago. She gained 11 pounds in 3 years. Her body mass index has been reduced from 43.8 down to 34.8. Lifetime percent excess weight loss is 48 %. Today she comes in with a body mass index of 34.8. PAST MEDICAL HISTORY: 1. Gastroesophageal reflux disease. 2. Irritable bowel syndrome. 3. Hypothyroidism. 4. Anxiety. 5. Osteoarthritis. 6. Hypertension. 7. Coronary artery disease. 8. Damaris's disease. 9. Morbid obesity excess calories, initial BMI 43.8 10. Depressive disorder PAST SURGICAL HISTORY: 1. Colonoscopy with EGD 2012. 2. . 3. Tonsillectomy. 4. Cholecystectomy. 5. Bilateral knee repair. 6. Bunionectomy. 7. Bilateral knee replacement. 8. Left breast biopsy. 9. Heart catheterization. 10. Tonsillectomy. 11. Appendectomy. 12. Cystoscopy. 13. Tubal ligation. 14. Gastric bypass. MEDICATIONS: Home Medications Medication Instructions Recorded Confirmed Levothyroxine Sodium [Synthroid] 175 mcg PO DAILY 02/23/14 11/07/20 traMADol HCL [Tramadol HCl] 50 - 100 mg PO Q6HR PRN 10/17/14 11/07/20 Multivitamins, Thera [Multivitamin 1 tab PO DAILY 07/31/16 11/07/20 (formulary)] Cyclobenzaprine [Flexeril] 5 mg PO HS PRN 09/09/17 11/07/20 ALPRAZolam [Xanax] 0.75 mg PO BID PRN 04/27/18 11/07/20 Vitamin A 16,000 unit PO DAILY 04/27/18 11/07/20 Albuterol Inhaler (Mhu) [Ventolin 2 puff INHALATION RT-Q6H PRN 12/25/18 11/07/20 Hfa Inhaler (Mhu)] Cholecalciferol (Vitamin D3) 20,000 unit PO DAILY 12/25/18 11/07/20 [Vitamin D3] Sertraline HCl [Zoloft] 50 mg PO DAILY 12/25/18 11/07/20 levETIRAcetam [Keppra] 750 mg PO BID 11/07/20 11/07/20 Previous Rx's Medication Instructions Recorded Metoprolol Tartrate [Lopressor] 25 mg PO BID #60 tab 12/27/18 ALLERGIES: PENICILLIN. FAMILY HISTORY: Pertinent for heart attack included non-Hodgkin lymphoma. SOCIAL HISTORY: Active alcohol use. Denies any tobacco use. REVIEW OF SYSTEMS: CONSTITUTIONAL: Bally body weight of 127 pounds. Initial weight was 224 pounds. Body mass index reduced from over 43.8. ENDOCRINE: Resolved diabetes. Has hypothyroidism. CARDIOVASCULAR: Resolved hypertension. Results hyperlipidemia. Has atrial fibrillation GASTROINTESTINAL: Denies any dumping syndrome. History of gastroesophageal reflux disease. She also reports constipation. MUSCULOSKELETAL: Reports muscle spasms along the neck as well as upper back. GENITOURINARY: History of abnormal kidney function improved. No kidney stones. PSYCH: History of anxiety without suicidal ideation. NEURO: No reports of strokes or seizure disorders. PSYCH: History of anxiety. No reports of depression. Has seizure disorder HEMATOLOGIC: Denies any DVTs or pulmonary embolisms. PHYSICAL EXAM: VITAL SIGNS: 5 feet; 178 pounds, body mass index 34.8 Vital Signs Temp 98.3 F 11/07/20 13:38 Pulse 73 11/07/20 13:38 Resp 18 11/07/20 13:38 BP 136/78 11/07/20 13:38 Pulse Ox GENERAL: Well-developed female in no acute distress. ABDOMEN: Soft, nontender, nondistended. MUSCULOSKELETAL: No clubbing, cyanosis, or edema. NECK: Supple without lymphadenopathy. CHEST: Unlabored respirations. Equal bilateral excursions. CARDIOVASCULAR: Regular rate and rhythm. NEURO: No focal or lateralizing signs. Cranial nerves II through XII. PSYCH: Appropriate affect. Alert and noted person place and time. HEENT: No scleral icterus. Extraocular grossly intact. Hears conversational speech. No nasal drainage. SKIN: Good skin turgor. Well-perfused. STUDIES: CT of the abdomen and pelvis independently reviewed from 2015 demonstrates severe constipation including umbilical hernia, with incisional hernia LABS: Hgb normal at 12.5 ASSESSMENT: 1. Morbid obesity due to excess caloric intake. 2. Body mass index reduced from 43.8 to 34.8 3. Status post Marisela-en-Y gastric bypass. 4. History of gastrojejunal stricture 5. Gastroesophageal reflux disease 6. Hypothyroidism 7. History of gastrojejunal ulcer with epigastric abdominal pain PLAN: 1. Recommend upper endoscopy and colonoscopy gastrojejunal ulcers and change in bowel habits 2. Recommend bariatric labs 3. Recommend repeat CT of the abdomen and pelvis regarding her new diffuse abdominal with high risk of small bowel obstruction, volvulus, peritoneal adhesions with her gastric bypass. Objective - Vital Signs Vital signs: Vital Signs Temp 98.3 F 11/07/20 13:38 Pulse 73 11/07/20 13:38 Resp 18 11/07/20 13:38 BP 136/78 11/07/20 13:38 Pulse Ox Intake & Output 11/06/20 11/07/20 11/07/20 18:59 06:59 18:59 Weight 80.739 kg - Labs CBC & Chem 7: 11/07/20 15:05 11/07/20 15:05
[2020-11-07 15:58] LABS: HCT 34.4 % (34.0-46.0); MCH 32.4 pg (25.0-35.0); MCHC 34.8 g/dL (31.0-37.0); MCV 93.2 fL (80.0-100.0); Mean Platelet Volume 6.7; Platelet Count 218 k/uL (150-450); RBC 3.69 m/uL (3.80-5.40); RDW 13.7 % (11.5-15.5); WBC 5.6 k/uL (3.8-10.6)
[2020-11-07 22:35] LABS: INR 0.93 (0.90-1.11); Prothrombin Time 10.1 sec (9.9-11.9)
[2020-11-08 02:01] LABS: Hemoglobin A1C 5.2 % (4.0-6.0)
[2020-11-08 03:23] LABS: Ferritin 117.3 ng/mL (10.0-291.0)
[2020-11-08 03:40] LABS: % Iron Saturation 30.7 (12.00-45.00); African American GFR (CKD) 104.6 (60.0-200.0); Albumin 4.2 g/dL (3.80-4.90); Albumin/Globulin Ratio 2.47 (1.60-3.17); Anion Gap 10.9 mmol/L (4.00-12.00); BUN/Creat Ratio 24.29 Ratio (12.00-20.00); Calcium 9.4 mg/dL (8.7-10.3); Carbon Dioxide 26.1 mmol/L (21.6-31.8); Chol/HDL Ratio 3.17; Folate, Serum 12.7 ng/mL; Globulin 1.7 g/dL (1.6-3.3); LDL Cholesterol,Calculated 131.4 mg/dL (0.0-131.0); Magnesium 1.9 mg/dL (1.5-2.4); Non-African American GFR(CKD) 90.3 (60.0-200.0); Phosphorus 3.9 mg/dL (2.4-5.1); Potassium 4.3 mmol/L (3.5-5.5); Total Bilirubin 0.7 mg/dL (0.3-1.2); Total Protein 5.9 g/dL (6.2-8.2); VLDL Calculation 20.6 mg/dL (5.00-40.00)
[2020-11-09 06:13] LABS: Zinc, Serum 51 ug/dL (60-130)
[2020-11-09 07:59] LABS: Vitamin A 57 ug/dL (38-106)
[2020-11-09 08:27] LABS: Vit B1(Thiamine) 70 ug/L (38-122)
[2020-11-12 18:06] LABS: Selenium 127 mcg/L (63-160)
== END | disposition home or self-care (01) ==
LOC: BARWHC3 13:20
PROVIDERS: ATTEND Surgery Plastic and Reconstructive Surgery
DX: E66.01 Morbid (severe) obesity due to excess calories (principal); K21.9 Gastro-esophageal reflux disease without esophagitis; E03.9 Hypothyroidism, unspecified; R10.13 Epigastric pain; D50.8 Other iron deficiency anemias; E44.0 Moderate protein-calorie malnutrition; E55.9 Vitamin D deficiency, unspecified; K74.1 Hepatic sclerosis; N19 Unspecified kidney failure; K50.90 Crohn's disease, unspecified, without complications; Z98.84 Bariatric surgery status
CPT/HCPCS: 84255; 84134; 84425; 80061; 80053; 82607; 82728; 82525; 82746; 83540; 83550; 83735; 84100; 84443; 84590; 84630; 85027; 85610; 85730; 82306; 83970; 83036; 93005; G0463; 99211

== ENCOUNTER 2020-12-05 10:30 | Day surgery (SDC) | payer MEDICARE ==
--- NOTE | 2020-12-05 08:36 | P.GSHP ---
History of Present Illness H&P Date: 12/05/20 CHIEF COMPLAINT: GERD and colon screen HISTORY OF PRESENT ILLNESS: The patient is a 65-year-old female who presents with gastroesophageal reflux disease and need for colon screen. Upper and lower endoscopy were offered for further evaluation and management. PAST MEDICAL HISTORY: Please see list. PAST SURGICAL HISTORY: Please see list. MEDICATIONS: Please see list. ALLERGIES: Please see list. SOCIAL HISTORY: No illicit drug use FAMILY HISTORY: No reports of Crohn disease or ulcerative colitis. REVIEW OF ORGAN SYSTEMS: CONSTITUTIONAL: No reports of fevers or chills. GI: Denies any blood in stools or constipation. PHYSICAL EXAM: VITAL SIGNS: Stable GENERAL: Well-developed pleasant in no acute distress. HEENT: No scleral icterus. Extraocular movements grossly intact. Moist buccal mucosa. NECK: Supple without lymphadenopathy. CHEST: Unlabored respirations. Equal bilateral excursions. CARDIOVASCULAR: Regular rate and rhythm. Distal 2+ pulses. ABDOMEN: Soft, nondistended. MUSCULOSKELETAL: No clubbing, cyanosis, or edema. ASSESSMENT: 1. Gastroesophageal reflux disease 2. Colon screen. PLAN: 1. Recommend proceeding with an upper and lower endoscopy Past Medical History Past Medical History: Fibromyalgia, Musculoskeletal Disorder, Thyroid Disorder Additional Past Medical History / Comment(s): 12/03/20;WEARING AN EVENT MONITOR (WILL REMOVE AND LEAVE HOME). ALBARO'S, CHRONIC BACK PAIN. METOPROLOL TO PREVENT ATRIAL FIBRILLATION (Z-PAC CAUSED ATRIAL FIBRILLATION). IBS. SENSORY NEUROPATHY IN LOWER EXTREMITIES. History of Any Multi-Drug Resistant Organisms: None Reported Past Surgical History: Appendectomy, Bariatric Surgery, Breast Surgery, Section, Heart Catheterization, Hernia Repair, Hysterectomy, Joint Replacement, Tonsillectomy, Tubal Ligation Additional Past Surgical History / Comment(s): BILAT TKA, FOOT SX. Colonoscopy, EGD1, Hx.gastric bypass with esophagus repair (March 2015), HIATAL HERNIA, VENTRAL HERNIA Past Anesthesia/Blood Transfusion Reactions: No Reported Reaction Past Psychological History: Anxiety Smoking Status: Never smoker Past Alcohol Use History: None Reported Past Drug Use History: None Reported - Past Family History Father Family Medical History: Coronary Artery Disease (CAD) Mother Family Medical History: Cancer Additional Family Medical History / Comment(s): NON-HODGKINS LYMPHOMA Brother(s) Family Medical History: Myocardial Infarction ([place]) Sister(s) Family Medical History: Myocardial Infarction ([place]), Thyroid Disorder Medications and Allergies Home Medications Medication Instructions Recorded Confirmed Type Levothyroxine Sodium [Synthroid] 175 mcg PO QAM 02/23/14 12/03/20 History traMADol HCL [Tramadol HCl] 50 mg PO BID 10/17/14 12/03/20 History Cyclobenzaprine [Flexeril] 10 mg PO BID 09/09/17 12/03/20 History ALPRAZolam [Xanax] 0.5 mg PO BID PRN 04/27/18 12/03/20 History Sertraline HCl [Zoloft] 50 mg PO QAM 12/25/18 12/03/20 History levETIRAcetam [Keppra] 750 mg PO BID 11/07/20 12/03/20 History Aspirin [Adult Low Dose Aspirin EC] 81 mg PO DAILY 12/03/20 12/03/20 History Biotin 1 tab PO DAILY 12/03/20 12/03/20 History Ergocalciferol (Vitamin D2) 50 mcg PO DAILY 12/03/20 12/03/20 History [Vitamin D2 (2000 Iu)] Gabapentin 300 mg PO BID 12/03/20 12/03/20 History Metoprolol Tartrate [Lopressor] 12.5 mg PO BID 12/03/20 12/03/20 History Zinc Gluconate [Zinc] 1 tab PO DAILY 12/03/20 12/03/20 History Allergies Allergy/AdvReac Type Severity Reaction Status Date / Time azithromycin Allergy Rapid Verified 12/03/20 10:23 Heart Rate Penicillins Allergy Swelling Verified 12/03/20 10:23 of legs
[~2020-12-05 10:30] MED LIST changes: +LIDOCAINE 1% (10MG/ML) FOR IV START INTRADERMA PRN
[2020-12-05 11:07] VITALS: TEMP 97.7
[2020-12-05] MEDS ORDERED: PROPOFOL 10 MG/ML 20 ML VIAL IV ONE (11:46)
--- NOTE | 2020-12-05 12:03 | P.PCN ---
Date of Procedure: 12/05/20 Description of Procedure: PREOPERATIVE DIAGNOSIS: Dysphagia. Gastroesophageal reflux disease POSTOPERATIVE DIAGNOSIS: Dysphagia. Gastroesophageal reflux disease Presbyesophagus Gastrojejunal stricture without chronic ulcer without perforation OPERATION: Esophagogastrojejunoscopy with balloon dilatation from 12 to 20 mm. SURGEON: Kimmie Bush MD ANESTHESIA: MAC. INDICATIONS: The patient is a 65-year-old female who presents trouble swallowing with dysphagia and gastroesophageal reflux disease. Benefits and risks of the procedure were described. Informed consent was obtained. DESCRIPTION: The patient was brought into the endoscopy suite and laid in the left lateral decubitus position. After a timeout was confirmed, the procedure was initiated. An Olympus gastroscope was passed along the posterior oropharynx down to the distal esophagus where the squamocolumnar junction was unremarkable. The gastric pouch was entered. A gastrojejunal stricture of 15 mm was found as the adult gastroscope was 9.5 mm in size. A Mashery balloon dilator was placed through the scope. Final insufflation up to 20 mm was performed with a total of 2 minutes. The scope was advanced up to 60 cm from the incisors into the Marisela limb. The mucosa of the gastrojejunal anastomosis was intact. No chronic gastrojejunal marginal ulcer was encountered. No full-thickness injury was encountered. The GI tract was desufflated. The patient tolerated the procedure well. FINDINGS: Squamocolumnar junction unremarkable at 35 cm. Stricture of approximately 15 mm encountered. No chronic gastrojejunal ulceration encountered. Successful balloon dilatation to 20 mm. Diaphragmatic hiatus at 40 cm. Gastric pouch 5 cm. Angulation of gastric pouch into jejunum Tertiary contractions of the esophagus consistent with presbyesophagus RECOMMENDATIONS: Upper endoscopy as needed
--- NOTE | 2020-12-05 12:25 | P.PCN ---
Date of Procedure: 12/05/20 Description of Procedure: PREOPERATIVE DIAGNOSIS: Change in bowel habits POSTOPERATIVE DIAGNOSIS: Change in bowel habits OPERATION: Colonoscopy to the cecum, ileocecal valve and appendiceal orifice. SURGEON: Kimmie Bush MD. ANESTHESIA: MAC. INDICATIONS: The patient is a 65-year-old female who presents with change in bowel habits. Last colonoscopy 5 years ago. Benefits and risks were described and informed consent was obtained. DESCRIPTION OF PROCEDURE: The patient had undergone Suprep. The patient had been brought into the operating room and laid in the left lateral decubitus position. After adequate intravenous sedation, the rectum was examined with 2% lidocaine jelly. No external hemorrhoids were encountered. The rectal tone was within normal limits. No lesions were palpated in the rectal vault. An Olympus colonoscope was advanced until the cecum, ileocecal valve and appendiceal orifice were clearly viewed. The prep was poor. Abdominal pressure was used to advance the scope. The colon was highly redundant. No scattered diverticulosis was encountered. No colonic polyps were found. No evidence of focal colitis was found. Retroflexion of the scope demonstrated grade 1 internal hemorrhoids without active bleeding or inflammation. The colon was desufflated. The patient had tolerated the procedure well. Withdrawal time was over 6 minutes. FINDINGS: Aronchick preparation quality scale 3 (1-5) Internal hemorrhoids, grade 1 No external prolapsed hemorrhoids. No arteriovenous malformations. No adenomatous polyps. No focal colitis. Highly redundant colon RECOMMENDATIONS: Lower endoscopy in 5 years, 2025 Recommend prolonged liquid bowel prep Plan - Discharge Summary Discharge Rx Participant: No New Discharge Prescriptions: Continue Levothyroxine Sodium [Synthroid] 175 mcg PO QAM traMADol HCL [Tramadol HCl] 50 mg PO BID Cyclobenzaprine [Flexeril] 10 mg PO BID ALPRAZolam [Xanax] 0.5 mg PO BID PRN PRN Reason: Anxiety Sertraline HCl [Zoloft] 50 mg PO QAM levETIRAcetam [Keppra] 750 mg PO BID Metoprolol Tartrate [Lopressor] 12.5 mg PO BID Zinc Gluconate [Zinc] 1 tab PO DAILY Gabapentin 300 mg PO BID Ergocalciferol (Vitamin D2) [Vitamin D2 (2000 Iu)] 50 mcg PO DAILY Biotin 1 tab PO DAILY Aspirin [Adult Low Dose Aspirin EC] 81 mg PO DAILY Discharge Medication List Levothyroxine Sodium [Synthroid] 175 mcg PO QAM 02/23/14 [History] traMADol HCL [Tramadol HCl] 50 mg PO BID 10/17/14 [History] Cyclobenzaprine [Flexeril] 10 mg PO BID 09/09/17 [History] ALPRAZolam [Xanax] 0.5 mg PO BID PRN 04/27/18 [History] Sertraline HCl [Zoloft] 50 mg PO QAM 12/25/18 [History] levETIRAcetam [Keppra] 750 mg PO BID 11/07/20 [History] Aspirin [Adult Low Dose Aspirin EC] 81 mg PO DAILY 12/03/20 [History] Biotin 1 tab PO DAILY 12/03/20 [History] Ergocalciferol (Vitamin D2) [Vitamin D2 (2000 Iu)] 50 mcg PO DAILY 12/03/20 [History] Gabapentin 300 mg PO BID 12/03/20 [History] Metoprolol Tartrate [Lopressor] 12.5 mg PO BID 12/03/20 [History] Zinc Gluconate [Zinc] 1 tab PO DAILY 12/03/20 [History] [facility] up [facility]ment(s[facility] [place] [place] [facility] - 12/12/20 Patient Instructions/Handouts: *[facility] - (Anesthesia) Endoscopy Discharge Instructions, Upper Endoscopy (DC), Esophageal Dilation (DC) Activity/Diet/Wound Care/Special Instructions: Repeat colonoscopy in 5 years, 2025 Discharge Disposition: HOME SELF-CARE
[2020-12-05 12:42] VITALS: BP 100/62; PULSE 70; RESP 16
== END 2020-12-05 12:59 | disposition home or self-care (01) ==
LOC: ORWHC2ENDO 10:30
PROVIDERS: ATTEND Surgery Plastic and Reconstructive Surgery
DX: K64.0 First degree hemorrhoids (principal); Q43.8 Other specified congenital malformations of intestine; K95.89 Other complications of other bariatric procedure; K56.699 Other intestinal obstruction unspecified as to partial versus complete obstruction; K22.8 Other specified diseases of esophagus; K44.9 Diaphragmatic hernia without obstruction or gangrene; K21.9 Gastro-esophageal reflux disease without esophagitis; M79.7 Fibromyalgia; G89.29 Other chronic pain; M54.5 Low back pain; I48.91 Unspecified atrial fibrillation; E07.9 Disorder of thyroid, unspecified; E06.3 Autoimmune thyroiditis; K58.9 Irritable bowel syndrome, unspecified; G60.8 Other hereditary and idiopathic neuropathies; F41.9 Anxiety disorder, unspecified; Z88.1 Allergy status to other antibiotic agents; Z88.0 Allergy status to penicillin; Z79.899 Other long term (current) drug therapy; Z90.49 Acquired absence of other specified parts of digestive tract; Z98.890 Other specified postprocedural states; Z90.710 Acquired absence of both cervix and uterus; Z96.653 Presence of artificial knee joint, bilateral; Z90.89 Acquired absence of other organs; Z98.51 Tubal ligation status; Z79.890 Hormone replacement therapy; Z79.891 Long term (current) use of opiate analgesic; Z79.82 Long term (current) use of aspirin; Z82.49 Family history of ischemic heart disease and other diseases of the circulatory system; Z80.7 Family history of other malignant neoplasms of lymphoid, hematopoietic and related tissues; Z83.49 Family history of other endocrine, nutritional and metabolic diseases
CPT/HCPCS: 45378; 43245; J2704; C1726; 43249

== ENCOUNTER → 2020-12-18 | Outpatient (CLI) | payer MEDICARE ==
--- NOTE | 2020-12-18 13:41 | CT ---
EXAMINATION TYPE: CT abdomen pelvis w con DATE OF EXAM: 12/18/2020 COMPARISON: 01/10/2015 HISTORY: 65-year-old female with abdominal pain and syncope, hx of gastric bypass TECHNIQUE: Contiguous axial scanning of the abdomen and pelvis following administration of 100 ml Iso miguel 300 IV contrast. Delayed images through the kidneys and coronal/sagittal reconstructions perform ed. CT DLP: 1306 mGycm Automated exposure control for dose reduction was used. FINDINGS: Heart normal size without pericardial effusion. Some scattered coronary artery calcifications are pre sent. Lung bases clear without pleural effusion. Post surgical changes of Marisela-en-Y gastric bypass. No focal liver lesion. Bile duct dilated at 1.1 cm versus 8 mm, previously. Progression in intrahepa tic biliary ductal dilatation as well. Portal venous system is patent. Cholecystectomy clips. Adrenal glands, left kidney, spleen, and pancreas appear within normal limits. Tiny 5 mm cortical hypodensity anterior mid right kidney too small for accurate CT characterization, likely tiny cyst, unchanged from 2015. No dilated small bowel, free fluid, free air. Some scattered prominent fluid-filled small bowel loops in the lower abdomen and pelvis. Moderate stool burden. Redundant sigmoid colon. No pericolonic inflammatory change. Bladder partially urine distended. Uterus surgically absent. Pelvic fluid. Left ovary is visualized. Right ovary not clearly delineated from adjacent bowel. No abnormal fluid collection in the pelvis or pelvic lymphadenopathy. Bones: Some degenerative change noted at the pubic symphysis. Mild degenerative change of the hips. H ypertrophic facet arthropathy throughout the lumbar spine with grade 1 anterolisthesis at L4-L5 and L 5-S1. IMPRESSION: 1. STATUS POST MARISELA-EN-Y GASTRIC BYPASS. NO OBSTRUCTIVE CHANGES. 2. PROMINENT FLUID-FILLED SMALL BOWEL LOOPS IN THE LOWER ABDOMEN AND PELVIS MAY BE TRANSIENT OR COULD REPRESENT A NONSPECIFIC MILD ENTERITIS. CLINICALLY CORRELATE. 3. DILATED BILE DUCT AT 1.1 CM VERSUS 8 MM IN 2015. FINDINGS MAY BE DUE TO CHRONIC POSTCHOLECYSTECTOM Y STATUS. CORRELATE WITH ALKALINE PHOSPHATASE AND BILIRUBIN LEVELS TO EXCLUDE BILIARY OBSTRUCTION. 4. MODERATE STOOL BURDEN.
== END ==
LOC: RADCTMAIN 11:29
PROVIDERS: ATTEND Surgery Plastic and Reconstructive Surgery
DX: K57.92 Diverticulitis of intestine, part unspecified, without perforation or abscess without bleeding (principal); Z90.49 Acquired absence of other specified parts of digestive tract
CPT/HCPCS: 74177; Q9967

== ENCOUNTER → 2020-12-19 | Outpatient (CLI) | payer MEDICARE ==
[2020-12-19 13:11] VITALS: BP 100/68; PULSE 90; RESP 18; TEMP 98.5; BMI 34.7
--- NOTE | 2020-12-19 13:54 | P.GSHP ---
History of Present Illness H&P Date: 12/19/20 She has moderate poop. Has presbyesophagus. She cannot tolerate Alive only. CT of the abdomen and pelvis reviewed. She has weight gain. Much stool. May benefit from colectomy. Upper endoscopy as need. Colonoscopy reviewed. She had fatigue from her metoprolol and now decreased. Past Medical History Past Medical History: Fibromyalgia, Musculoskeletal Disorder, Thyroid Disorder Additional Past Medical History / Comment(s): ALBARO'S, CHRONIC BACK PAIN History of Any Multi-Drug Resistant Organisms: None Reported Past Surgical History: Appendectomy, Bariatric Surgery, Breast Surgery, Section, Heart Catheterization, Hernia Repair, Hysterectomy, Joint Replacement, Tonsillectomy, Tubal Ligation Additional Past Surgical History / Comment(s): BILAT TKA, FOOT SX. Colonoscopy, EGD1, Hx.gastric bypass with esophagus repair (March 2015), HIATAL HERNIA, VENTRAL HERNIA Past Anesthesia/Blood Transfusion Reactions: No Reported Reaction Past Psychological History: Anxiety Smoking Status: Never smoker Past Alcohol Use History: None Reported Past Drug Use History: None Reported - Past Family History Father Family Medical History: Coronary Artery Disease (CAD) Mother Family Medical History: Cancer Additional Family Medical History / Comment(s): NON-HODGKINS LYMPHOMA Brother(s) Family Medical History: Myocardial Infarction ([place]) Sister(s) Family Medical History: Myocardial Infarction ([place]), Thyroid Disorder Medications and Allergies Home Medications Medication Instructions Recorded Confirmed Type Levothyroxine Sodium [Synthroid] 175 mcg PO QAM 02/23/14 12/19/20 History traMADol HCL [Tramadol HCl] 50 mg PO BID 10/17/14 12/19/20 History Cyclobenzaprine [Flexeril] 10 mg PO BID 09/09/17 12/19/20 History ALPRAZolam [Xanax] 0.5 mg PO BID PRN 04/27/18 12/19/20 History Sertraline HCl [Zoloft] 50 mg PO QAM 12/25/18 12/19/20 History levETIRAcetam [Keppra] 750 mg PO BID 11/07/20 12/19/20 History Aspirin [Adult Low Dose Aspirin EC] 81 mg PO DAILY 12/03/20 12/19/20 History Biotin 1 tab PO DAILY 12/03/20 12/19/20 History Ergocalciferol (Vitamin D2) 50 mcg PO DAILY 12/03/20 12/19/20 History [Vitamin D2 (2000 Iu)] Gabapentin 300 mg PO BID 12/03/20 12/19/20 History Metoprolol Tartrate [Lopressor] 12.5 mg PO BID 12/03/20 12/19/20 History Zinc Gluconate [Zinc] 1 tab PO DAILY 12/03/20 12/19/20 History Polyethylene Glycol 3350 [Miralax] 17 gm PO DAILY #527 gm 12/05/20 12/19/20 Rx Allergies Allergy/AdvReac Type Severity Reaction Status Date / Time azithromycin Allergy Rapid Verified 12/19/20 13:12 Heart Rate Penicillins Allergy Swelling Verified 12/19/20 13:12 of legs Surgical - Exam Vital Signs Temp Pulse Resp BP 98.5 F 90 18 100/68 12/19/20 13:00 12/19/20 13:00 12/19/20 13:00 12/19/20 13:00
--- NOTE | 2021-01-01 08:46 | P.PN ---
Subjective Progress Note Date: 12/19/20 She has moderate poop. Has presbyesophagus. She cannot tolerate Alive only. CT of the abdomen and pelvis reviewed. She has weight gain. Much stool. May benefit from colectomy. Upper endoscopy as need. Colonoscopy reviewed. She had fatigue from her metoprolol and now decreased. Objective - Vital Signs Vital signs: Vital Signs Temp 98.5 F 12/19/20 13:00 Pulse 90 12/19/20 13:00 Resp 18 12/19/20 13:00 BP 100/68 12/19/20 13:00 Pulse Ox
== END ==
LOC: BARWHC3 12:50
PROVIDERS: ATTEND Surgery Plastic and Reconstructive Surgery
DX: E66.01 Morbid (severe) obesity due to excess calories (principal)
CPT/HCPCS: 99211

== ENCOUNTER 2021-08-25 07:32 | Observation (INO) | payer MEDICARE ==
[2021-08-25] MEDS ORDERED: SODIUM CHLORIDE 0.9% 1,000 ML IV STA (07:49)
[2021-08-25] MEDS ORDERED: SODIUM CHLORIDE 0.9% 500 ML 500 ML IV STA (07:49)
[2021-08-25] MEDS ORDERED: DILTIAZEM DRIP BOLUS FROM BAG 1 MG SOLN IV ONE (07:50)
[2021-08-25] MEDS ORDERED: LORazepam 2 MG/ML INJ IV STA ×2 (07:52)
--- NOTE | 2021-08-25 08:11 | ED ---
General Adult HPI - General Chief complaint: Arrhythmia/Palpitations Stated complaint: A fib Time Seen by Provider: 08/25/21 07:35 Source: patient, RN notes reviewed, old records reviewed Mode of arrival: wheelchair Limitations: physical limitation - History of Present Illness Initial comments: This is a 66-year-old female who states that at 6:00 this morning she rolled over in bed her heart started racing. Patient states she did have a history of having atrial fibrillation once in the past. Patient states she was told it was medication related. Patient states she is on metoprolol typically a half a pill a day but because of that she took a full pill this morning. Patient states she is a little short of breath in a little lightheaded. Patient states there is an ache in her chest as well. Patient denies any recent fever chills or cough. Patient denies any abdominal pain patient has nausea vomiting diarrhea. - Related Data Home Medications Medication Instructions Recorded Confirmed Levothyroxine Sodium [Synthroid] 175 mcg PO DAILY 02/23/14 08/25/21 traMADol HCL [Tramadol HCl] 50 mg PO BID PRN 10/17/14 08/25/21 ALPRAZolam [Xanax] 0.5 mg PO BID PRN 04/27/18 08/25/21 levETIRAcetam [Keppra] 750 mg PO BID 11/07/20 08/25/21 Metoprolol Tartrate [Lopressor] 12.5 mg PO BID 12/03/20 05/15/21 Zinc Gluconate [Zinc] 50 tab PO DAILY 12/03/20 08/25/21 Calcium Carbonate [Calcium] 600 mg PO DAILY 08/25/21 08/25/21 Cholecalciferol [Vitamin D3 (25 25 mcg PO DAILY 08/25/21 08/25/21 Mcg = 1000 Iu)] Cyclobenzaprine [Flexeril] 10 mg PO QID PRN 08/25/21 08/25/21 Allergies Allergy/AdvReac Type Severity Reaction Status Date / Time azithromycin Allergy Rapid Verified 08/25/21 08:15 Heart Rate Penicillins Allergy Swelling Verified 08/25/21 08:15 of legs Review of Systems ROS Statement: Those systems with pertinent positive or pertinent negative responses have been documented in the HPI. ROS Other: All systems not noted in ROS Statement are negative. Past Medical History Past Medical History: Atrial Fibrillation, Fibromyalgia, Musculoskeletal Disorder, Thyroid Disorder Additional Past Medical History / Comment(s): ALBARO'S, CHRONIC BACK PAIN, covid History of Any Multi-Drug Resistant Organisms: None Reported Past Surgical History: Appendectomy, Bariatric Surgery, Breast Surgery, Section, Heart Catheterization, Hernia Repair, Hysterectomy, Joint Replacement, Tonsillectomy, Tubal Ligation Additional Past Surgical History / Comment(s): BILAT TKA, FOOT SX. Colonoscopy, EGD1, Hx.gastric bypass with esophagus repair (March 2015), HIATAL HERNIA, VENTRAL HERNIA Past Anesthesia/Blood Transfusion Reactions: No Reported Reaction Past Psychological History: Anxiety Smoking Status: Never smoker Past Alcohol Use History: None Reported Past Drug Use History: None Reported - Past Family History Father Family Medical History: Coronary Artery Disease (CAD) Mother Family Medical History: Cancer Additional Family Medical History / Comment(s): NON-HODGKINS LYMPHOMA Brother(s) Family Medical History: Myocardial Infarction ([place]) Sister(s) Family Medical History: Myocardial Infarction ([place]), Thyroid Disorder General Exam - General Exam Comments Initial Comments: GENERAL: Patient is well-developed and well-nourished. Patient is nontoxic and well- hydrated and is in mild distress. ENT: Neck is soft and supple. No significant lymphadenopathy is noted. Oropharynx is clear. Moist mucous membranes. Neck has full range of motion without valerie citing any pain. EYES: The sclera were anicteric and conjunctiva were pink and moist. Extraocular movements were intact and pupils were equal round and reactive to light. Eyelids were unremarkable. PULMONARY: Unlabored respirations. Good breath sounds bilaterally. No audible rales rhonchi or wheezing was noted. CARDIOVASCULAR: Heart rate is 160 beats a minute and it is irregular. ABDOMEN: Soft and nontender with normal bowel sounds. SKIN: Skin is clear with no lesions or rashes and otherwise unremarkable. NEUROLOGIC: Patient is alert and oriented x3. Cranial nerves II through XII are grossly intact. Motor and sensory are also intact. Normal speech, volume and content. Symmetrical smile. MUSCULOSKELETAL: Normal extremities with adequate strength and full range of motion. No lower extremity swelling or edema. No calf tenderness. LYMPHATICS: No significant lymphadenopathy is noted PSYCHIATRIC: Normal psychiatric evaluation. Limitations: physical limitation Course Vital Signs 08/25/21 08/25/21 08/25/21 07:37 07:48 08:01 Temperature 97.0 F L 97.6 F Pulse Rate 165 H Pulse Rate [ 146 H Sitting Legal Adviser] Respiratory 18 18 Rate Blood Pressure 97/78 O2 Sat by Pulse 100 Oximetry 08/25/21 08/25/21 08/25/21 08:10 08:34 08:41 Temperature Pulse Rate 138 H 116 H 118 H Pulse Rate [ Sitting Legal Adviser] Respiratory 16 16 16 Rate Blood Pressure 120/65 87/65 94/48 O2 Sat by Pulse 96 99 97 Oximetry 08/25/21 08:50 Temperature Pulse Rate 122 H Pulse Rate [ Sitting Legal Adviser] Respiratory 16 Rate Blood Pressure 88/49 O2 Sat by Pulse 100 Oximetry Medical Decision Making - Medical Decision Making EKG shows atrial fibrillation with rapid ventricular response at 182 bpm QRS is 62 QT interval is 242 QTC is 421. Patient's EKG shows no ST segment elevation however there is some ST segment depression in precordial leads V2 through V4. Patient's blood pressure normally is 100/70 she states. Patient states in the past when she's taking more metoprolol her blood pressure has dropped significantly. Patient did take double her dose of metoprolol this morning. Patient received a liter and a half normal saline. Patient was started on a Cardizem drip and was given a bolus of Cardizem as well. Patient's heart rate slowed down into the 120s and she was feeling considerably better. Patient's blood pressure still around 80 systolic however she was asymptomatic. I spoke with Dr. Moreno he agreed to admit the patient admitted the patient consult cardiology and I started the patient on heparin. Continue the Cardizem and heparin on the floor. - Lab Data Result diagrams: 08/25/21 07:56 08/25/21 07:56 Lab Results 08/25/21 08/25/21 08/25/21 Range/Units 07:56 07:56 07:56 WBC 7.2 (3.8-10.6) k/uL RBC 4.28 (3.80-5.40) m/uL Hgb 13.5 (11.4-16.0) gm/dL Hct 39.6 (34.0-46.0) % MCV 92.5 (80.0-100.0) fL MCH 31.5 (25.0-35.0) pg MCHC 34.0 (31.0-37.0) g/dL RDW 13.5 (11.5-15.5) % Plt Count 287 (150-450) k/uL MPV 7.0 Neutrophils % 65 % Lymphocytes % 25 % Monocytes % 7 % Eosinophils % 0 % Basophils % 1 % Neutrophils # 4.7 (1.3-7.7) k/uL Lymphocytes # 1.8 (1.0-4.8) k/uL Monocytes # 0.5 (0-1.0) k/uL Eosinophils # 0.0 (0-0.7) k/uL Basophils # 0.0 (0-0.2) k/uL PT 9.7 (9.0-12.0) sec INR 0.9 (<1.2) APTT 24.0 (22.0-30.0) sec Sodium 137 (137-145) mmol/L Potassium 4.1 (3.5-5.1) mmol/L Chloride 103 (98-107) mmol/L Carbon Dioxide 26 (22-30) mmol/L Anion Gap 8 mmol/L BUN 17 (7-17) mg/dL Creatinine 0.63 (0.52-1.04) mg/dL Est GFR (CKD-EPI)AfAm >90 (>60 ml/min/1.73 sqM) Est GFR (CKD-EPI)NonAf >90 (>60 ml/min/1.73 sqM) Glucose 128 H (74-99) mg/dL Calcium 9.5 (8.4-10.2) mg/dL Magnesium 2.1 (1.6-2.3) mg/dL Total Bilirubin 0.7 (0.2-1.3) mg/dL AST 35 (14-36) U/L ALT 29 (4-34) U/L Alkaline Phosphatase 154 H (38-126) U/L Troponin I (0.000-0.034) ng/mL Total Protein 6.5 (6.3-8.2) g/dL Albumin 3.8 (3.5-5.0) g/dL TSH 0.840 (0.465-4.680) mIU/L Coronavirus (PCR) (Not Detectd) 08/25/21 08/25/21 Range/Units 07:56 08:38 WBC (3.8-10.6) k/uL RBC (3.80-5.40) m/uL Hgb (11.4-16.0) gm/dL Hct (34.0-46.0) % MCV (80.0-100.0) fL MCH (25.0-35.0) pg MCHC (31.0-37.0) g/dL RDW (11.5-15.5) % Plt Count (150-450) k/uL MPV Neutrophils % % Lymphocytes % % Monocytes % % Eosinophils % % Basophils % % Neutrophils # (1.3-7.7) k/uL Lymphocytes # (1.0-4.8) k/uL Monocytes # (0-1.0) k/uL Eosinophils # (0-0.7) k/uL Basophils # (0-0.2) k/uL PT (9.0-12.0) sec INR (<1.2) APTT (22.0-30.0) sec Sodium (137-145) mmol/L Potassium (3.5-5.1) mmol/L Chloride (98-107) mmol/L Carbon Dioxide (22-30) mmol/L Anion Gap mmol/L BUN (7-17) mg/dL Creatinine (0.52-1.04) mg/dL Est GFR (CKD-EPI)AfAm (>60 ml/min/1.73 sqM) Est GFR (CKD-EPI)NonAf (>60 ml/min/1.73 sqM) Glucose (74-99) mg/dL Calcium (8.4-10.2) mg/dL Magnesium (1.6-2.3) mg/dL Total Bilirubin (0.2-1.3) mg/dL AST (14-36) U/L ALT (4-34) U/L Alkaline Phosphatase (38-126) U/L Troponin I <0.012 (0.000-0.034) ng/mL Total Protein (6.3-8.2) g/dL Albumin (3.5-5.0) g/dL TSH (0.465-4.680) mIU/L Coronavirus (PCR) Not Detected (Not Detectd) Critical Care Time Critical Care Time: Yes Total Critical Care Time: 35 Disposition Clinical Impression: Atrial fibrillation with rapid ventricular response Disposition: ADMITTED IP TO THIS HOSP Referrals: Sweetie Moreno MD [Primary Care Provider] - 1-2 days Time of Disposition: 09:26
[2021-08-25 08:12] LABS: ALT 29 U/L (4-34); AST 35 U/L (14-36); African American GFR (CKD) >90 (>60 ml/min/1.73 sqM); Albumin 3.8 g/dL (3.5-5.0); Alkaline Phosphatase 154 U/L (38-126); Anion Gap 8 mmol/L; Blood Urea Nitrogen 17 mg/dL (7-17); Calcium 9.5 mg/dL (8.4-10.2); Carbon Dioxide 26 mmol/L (22-30); Chloride 103 mmol/L (98-107); Glucose 128 mg/dL (74-99); Magnesium 2.1 mg/dL (1.6-2.3); Non-African American GFR(CKD) >90 (>60 ml/min/1.73 sqM); Potassium 4.1 mmol/L (3.5-5.1); Sodium 137 mmol/L (137-145); Total Bilirubin 0.7 mg/dL (0.2-1.3); Total Protein 6.5 g/dL (6.3-8.2)
[2021-08-25 08:16] LABS: Basophils % (A) 1 %; Eosinophils % (A) 0 %; HCT 39.6 % (34.0-46.0); HGB 13.5 gm/dL (11.4-16.0); Lymphocytes # (A) 1.8 k/uL (1.0-4.8); Lymphocytes % (A) 25 %; MCH 31.5 pg (25.0-35.0); MCV 92.5 fL (80.0-100.0); Monocytes # (A) 0.5 k/uL (0-1.0); Monocytes % (A) 7 %; Neutrophils # (A) 4.7 k/uL (1.3-7.7); Neutrophils % (A) 65 %; Platelet Count 287 k/uL (150-450); RBC 4.28 m/uL (3.80-5.40); RDW 13.5 % (11.5-15.5); WBC 7.2 k/uL (3.8-10.6)
[2021-08-25 08:18] LABS: INR 0.9 (<1.2); Prothrombin Time 9.7 sec (9.0-12.0)
[2021-08-25] MEDS: DILTIAZEM 125 MG in SODIUM CHLORIDE 0.9% 100 ML IV SCH (08:25)
--- NOTE | 2021-08-25 09:20 | XR ---
EXAMINATION TYPE: XR chest 1V portable DATE OF EXAM: 08/25/2021 COMPARISON: 12/25/2018 HISTORY: Dysrhythmia TECHNIQUE: Single frontal view of the chest is obtained. FINDINGS: There is no focal air space opacity, pleural effusion, or pneumothorax seen. The cardiac silhouette size is within normal limits. The osseous structures are intact. IMPRESSION: No acute process.
[2021-08-25] MEDS ORDERED: HEPARIN SODIUM 1,000 UN/ML (10ML VL) IV ONE (09:24)
[2021-08-25] MEDS ORDERED: NITROGLYCERIN SL TABS 0.4 MG TAB SUBLINGUAL PRN (09:26)
[2021-08-25] MEDS ORDERED: HEPARIN SOD,PORK IN 0.45% NACL 25,000 UNIT in 0.45% NACL 1 250ML.BAG IV SCH (09:30)
[2021-08-25] MEDS ORDERED: ALPRAZolam 0.5 MG TAB PO PRN (10:23)
[2021-08-25] MEDS ORDERED: traMADol 50 MG TAB PO PRN (10:23)
[2021-08-25] MEDS ORDERED: CYCLOBENZAPRINE 10 MG TAB PO PRN (10:23)
--- NOTE | 2021-08-25 11:17 | P.HPIM ---
History of Present Illness H&P Date: 08/25/21 Chief Complaint: Atrial fibrillation with rapid ventricular response HISTORY OF PRESENT ILLNESS: This is a 66-year-old female one of my patient with a past medical history significant for hypertension and hypertensive cardiovascular disease, hyperlipidemia, history of paroxysmal atrial fibrillation , history of mild CAD,Anxiety disorder osteoarthritis status post bilateral total knee arthroplasty, history of the obesity status post bariatric surgery with gastric bypass, history of hypothyroidism, history of seizure disorder, history of chronic low back pain, patient presented to the emergency department at [facility] with increased palpitation associated with increased shortness of breath along with the chest pain radiating to the side of the jaw patient took a whole pill of metoprolol tried to break her atrial for relation because she has that happen before, she stated that she has seen her ophthalmic dispenser about a few months back and had echocardiogram did not have the results of that, she usually follow with Dr. Piña as an outpatient and regular basis, she follows up with me as an outpatient as well patient was found to be in atrial fibrillation with rapid ventricular response, she was given a liter of IV fluid normal saline, she was started on Cardizem drip as well as heparin drip, and she was admitted to the hospital for evaluation by cardiology. Patient was hospitalized back in 2019 for age her for relation with rapid ventricle response at that time she was seen in consultation by cardiology underwent Lexiscan Cardiolite stress test that was negative for stress-induced ischemia, patient recently had an echocardiogram at Dr. Piña's office the results of which still pending at the time of dictation, patient did have a CH ADS-VASC SCORE of 1 vessel she was not placed on it long-term anticoagulation, patient did have a left heart catheterization back in 2005 and that showed mild non-occlusive coronary artery disease. REVIEW OF SYSTEMS: Constitutional: No documented fever, no chills, no night sweats. No weight dileep nge. No weakness, fatigue or lethargy. No daytime sleepiness. EENT: No headache. No blurred vision or double vision, no loss of vision. No loss of Hearing, no ringing in the ears, no dizziness. No nasal drainage or congestion. No epistaxis. No sore throat. Lungs: No shortness of breath, no cough, no sputum production. No wheezing. Reports dyspnea with activity. Cardiovascular: No chest pain, no lower extremity edema. No palpitations. No paroxysmal nocturnal dyspnea. No orthopnea. No lightheadedness or dizziness. No syncopal episodes. Abdominal: Reports abdominal pain. No nausea, vomiting. No diarrhea. No constipation. No bloody or tarry stools reports loss of appetite. Genitourinary: No dysuria, increased frequency, urgency. No urinary retention. Musculoskeletal: No myalgias. No muscle weakness, no gait dysfunction, no frequent falls. No back pain. No neck pain. Integumentary: No wounds, no lesions. No rash or pruritus. No unusual bruising. No change in hair or nails. Neurologic: No aphasia. No facial droop. No change in mentation. No head injury. No headache. No paralysis. No paresthesia. Psychiatric: No depression. No anxiety. No mood swings. Endocrine: No abnormal blood sugars. No weight change. PAST MEDICAL HISTORY: Hypertension and hypertensive cardiovascular disease Hyperlipidemia. CAD. Paroxysmal atrial fibrillation. Osteoarthritis. Obesity status post bariatric surgery. Hypothyroidism. Seizure disorder. Chronic low back pain. Anxiety. PAST SURGICAL HISTORY: gastric bypass surgery Marisela-En-Y with hiatal hernia repair and ventral hernia repair in March 2015 Bilateral total knee arthroplasties. Hysterectomy. Tubal ligation. Appendectomy. Tonsillectomy and adenoidectomy. C-sectionX 2 Breast surgery. Colonoscopy/EGD July 2016. SOCIAL HISTORY: Patient is a lifelong nonsmoker she drinks occasionally she denies any drug use or abuse, she used to be to be a nurse at [employer]. FAMILY HISTORY: Father at the age of 83 from coronary artery disease and had hypertension mother at the age of 84 from non-Hodgkin's lymphoma and had hypothyroidism and hyperlipidemia, patient had 3 brothers one brother at the age of 35 from massive [place], patient has 3 sisters one with hypothyroidism and hyperlipidemia and neuropathy and the other 2 with neuropathy, patient has 4 daughters one with seizure disorder and the other 3 are okay PHYSICAL EXAMINATION: General: 66-year-old female laying down in bed in no apparent distress. HEENT: Head is atraumatic, normocephalic, pupils were equal round reactive to light and recommendation, extraocular muscle movement were intact, sclera nonicteric, conjunctivae were pale, mucous membranes of the mouth are somewhat dry. Neck: Supple, no JVP, normal carotid upstroke bilaterally, no lymphadenopathy. Chest: Decreased breath sounds at the bases, few rhonchi, no extremity wheezes, no chest wall tenderness, no intercostal retractions. Heart: First heart sound is normal, second heart sounds normal, irregularly irregular, there is no murmur. Abdomen: Soft, nontender, nondistended, positive bowel sounds, there is no hepatomegaly. Extremities: There is no edema no calf tenderness DP +2 bilaterally. Neurologic examination: Patient is awake alert and oriented X 3, cranial nerves II-12 appear grossly intact, muscle power were 5 out of 5 in upper extremities and 5 out of 5 in bilateral lower extremities, deep tendon reflexes normal bilaterally. ASSESSMENT AND PLAN: 1. Atrial fibrillation with rapid ventricular response. Continue IV fluid in the form of normal saline at 75 ml per hour, continue heparin drip, continue Cardizem drip, restart the patient was small dose of metoprolol 12.5 mg orally twice every day, obtain the result of echocardiogram that was done as an outpatient, cardiology consultation, cardiac enzymes 2 every 4 hours. 2. Hypotension likely related to A. fib with RVR continue IV fluid, continue with Cardizem drip, onto the patient blood pressure very closely. 3. Hyperlipidemia. Currently not on any statins. 4. Hypothyroidism. Continue Synthroid 175 MCG orally once every day. 5. Seizure disorder. Continue Keppra 750 mg orally twice every day. 6. History of gastric bypass surgery. Stable. 7. History of fibromyalgia. Continue patient on Flexeril 10 mg orally 4 times every day as needed as well as tramadol 50 minute gram orally twice every day. 8. Anxiety disorder. Continue patient on Xanax 0.5 mg orally twice every day as needed. 9. Chronic low back pain with chronic pain syndrome. Continue Flexeril as well as tramadol. 10. DVT prophylaxis. Currently on heparin drip. 11. GI prophylaxis. Continue Protonix 40 mg orally once every day. 12. Admit to inpatient. Estimate a length of stay 2 midnights. Past Medical History Past Medical History: Atrial Fibrillation, Fibromyalgia, Musculoskeletal Disorder, Thyroid Disorder Additional Past Medical History / Comment(s): ALBARO'S, CHRONIC BACK PAIN, covid History of Any Multi-Drug Resistant Organisms: None Reported Past Surgical History: Appendectomy, Bariatric Surgery, Breast Surgery, Section, Heart Catheterization, Hernia Repair, Hysterectomy, Joint Replacement, Tonsillectomy, Tubal Ligation Additional Past Surgical History / Comment(s): BILAT TKA, FOOT SX. Colonoscopy, EGD1, Hx.gastric bypass with esophagus repair (March 2015), HIATAL HERNIA, VENTRAL HERNIA Past Anesthesia/Blood Transfusion Reactions: No Reported Reaction Past Psychological History: Anxiety Smoking Status: Never smoker Past Alcohol Use History: None Reported Past Drug Use History: None Reported - Past Family History Father Family Medical History: Coronary Artery Disease (CAD) Mother Family Medical History: Cancer Additional Family Medical History / Comment(s): NON-HODGKINS LYMPHOMA Brother(s) Family Medical History: Myocardial Infarction ([place]) Sister(s) Family Medical History: Myocardial Infarction ([place]), Thyroid Disorder Medications and Allergies Home Medications Medication Instructions Recorded Confirmed Type Levothyroxine Sodium [Synthroid] 175 mcg PO DAILY 02/23/14 08/25/21 History traMADol HCL [Tramadol HCl] 50 mg PO BID PRN 10/17/14 08/25/21 History ALPRAZolam [Xanax] 0.5 mg PO BID PRN 04/27/18 08/25/21 History levETIRAcetam [Keppra] 750 mg PO BID 11/07/20 08/25/21 History Metoprolol Tartrate [Lopressor] 12.5 mg PO BID 12/03/20 05/15/21 History Zinc Gluconate [Zinc] 50 tab PO DAILY 12/03/20 08/25/21 History Calcium Carbonate [Calcium] 600 mg PO DAILY 08/25/21 08/25/21 History Cholecalciferol [Vitamin D3 (25 25 mcg PO DAILY 08/25/21 08/25/21 History Mcg = 1000 Iu)] Cyclobenzaprine [Flexeril] 10 mg PO QID PRN 08/25/21 08/25/21 History Allergies Allergy/AdvReac Type Severity Reaction Status Date / Time azithromycin Allergy Rapid Verified 08/25/21 11:12 Heart Rate Penicillins Allergy Swelling Verified 08/25/21 11:12 of legs Physical Exam Vitals: Vital Signs Temp Pulse Pulse Resp BP Pulse Ox 08/25/21 09:44 117 H 18 99/67 99 08/25/21 08:50 122 H 16 88/49 100 08/25/21 08:41 118 H 16 94/48 97 08/25/21 08:34 116 H 16 87/65 99 08/25/21 08:10 138 H 16 120/65 96 08/25/21 08:01 146 H 08/25/21 07:48 97.6 F 165 H 18 97/78 08/25/21 07:37 97.0 F L 18 100 Intake and Output 08/24/21 08/25/21 08/25/21 23:59 06:59 14:59 Other: Weight 77.111 kg Results CBC & Chem 7: 08/25/21 07:56 08/25/21 07:56 Labs: Abnormal Lab Results - Last 24 Hours (Table) 08/25/21 Range/Units 07:56 Glucose 128 H (74-99) mg/dL Alkaline Phosphatase 154 H (38-126) U/L
[2021-08-25] MEDS: METOPROLOL TARTRATE 12.5 MG TAB PO SCH (20:17)
[2021-08-26 05:46] VITALS: RESP 16; TEMP 97.7
[2021-08-26] MEDS ORDERED: LEVOTHYROXINE 88 MCG TAB PO SCH (06:30)
[2021-08-26] MEDS: ZINC SULFATE 220 MG CAP PO SCH ×2 (08:37→10:16)
[2021-08-26] MEDS: CALCIUM CARBONATE 500 MG CHEWABLE PO SCH ×2 (08:37→10:16)
[2021-08-26] MEDS: CHOLECALCIFEROL 25 MCG (1000 IU) TABLET PO SCH ×2 (08:37→10:17)
[2021-08-26] MEDS: DILTIAZEM 125 MG in SODIUM CHLORIDE 0.9% 100 ML IV SCH (08:39)
[2021-08-26] MEDS ORDERED: ASPIRIN 325 MG TAB PO SCH (09:00)
[2021-08-26] MEDS ORDERED: ASPIRIN 81 MG PO SCH (09:00)
[2021-08-26] MEDS: METOPROLOL TARTRATE 12.5 MG TAB PO SCH (10:17)
[2021-08-26 12:15] LABS: Chol/HDL Ratio 2.98 Ratio; HDL Cholesterol 60.7 mg/dL (40.00-60.00)
--- NOTE | 2021-08-26 12:59 | P.CRDCN ---
History of Present Illness Consult date: 08/26/21 History of present illness: HISTORY OF PRESENT ILLNESS: This is a 66-year-old female with a past medical history significant for paroxysmal atrial fibrillation and hypothyroidism. Patient follows in the office with Dr. Piña. We have been asked to see the patient in consultation for afib with RVR. Patient examined at the bedside. Patient reports waking up yesterday with palpitations. She came to the ER and was found to be in afib with RVR. Giovana harden was given IV cardizem and has since converted to sinus mechanism. EKG reveals A. fib with RVR Chest xray negative for acute process Patient had a stress test in 2019 which was negative for ischemia. Just underwent cardiac catheterization in 2005 revealing mild nonobstructive CAD REVIEW OF SYSTEMS: At the time of my exam: CONSTITUTIONAL: Denies fever or chills. HEENT: Denies blurred vision, vision changes, or eye pain. Denies hemoptysis CARDIOVASCULAR: Denies chest pain. Denies orthopnea. Denies PND. Denies palpitations RESPIRATORY: Denies shortness of breath. GASTROINTESTINAL: Denies abdominal pain. Denies nausea or vomiting. HEMATOLOGIC: Denies bleeding disorders. GENITOURINARY: Denies any blood in urine. SKIN: Denies pruitis. Denies rash. PHYSICAL EXAM: VITAL SIGNS: Reviewed. GENERAL: Well-developed in no acute distress. HEENT: Head is normocephalic. Pupils are equal, round. Sclerae anicteric. Mucous membranes of the mouth are moist. Neck supple. No JVD or thyromegaly LUNGS: Respirations even and unlabored. Lungs essentially clear to auscultation bilaterally. HEART: Regular rate and rhythm. S1 and S2 heard. ABDOMEN: Soft. Nondistended. Nontender. EXTREMITIES: Normal range of motion. No clubbing or cyanosis. Peripheral pulses intact. No lower extremity edema NEUROLOGIC: Awake and alert. Oriented x 3. ASSESSMENT: Palpitations Paroxysmal atrial fibrillation with RVR Hypothyroidism PLAN: No anticoagulation per Dr. Roman Continue metoprolol Check TSH Obtain 2D echo Patient may follow up outpatient with Dr. Piña for stress testing Nurse practitioner note has been reviewed by physician. Signing provider agrees with the documented findings, assessment, and plan of care. Past Medical History Past Medical History: Atrial Fibrillation, Fibromyalgia, Musculoskeletal Disorder, Thyroid Disorder Additional Past Medical History / Comment(s): ALBARO'S, CHRONIC BACK PAIN, covid History of Any Multi-Drug Resistant Organisms: None Reported Past Surgical History: Appendectomy, Bariatric Surgery, Breast Surgery, Section, Heart Catheterization, Hernia Repair, Hysterectomy, Joint Replacement, Tonsillectomy, Tubal Ligation Additional Past Surgical History / Comment(s): BILAT TKA, FOOT SX. Colonoscopy, EGD1, Hx.gastric bypass with esophagus repair (March 2015), HIATAL HERNIA, VENTRAL HERNIA Past Anesthesia/Blood Transfusion Reactions: No Reported Reaction Past Psychological History: Anxiety Smoking Status: Never smoker Past Alcohol Use History: None Reported Past Drug Use History: None Reported - Past Family History Father Family Medical History: Coronary Artery Disease (CAD) Mother Family Medical History: Cancer Additional Family Medical History / Comment(s): NON-HODGKINS LYMPHOMA Brother(s) Family Medical History: Myocardial Infarction ([place]) Sister(s) Family Medical History: Myocardial Infarction ([place]), Thyroid Disorder Medications and Allergies Home Medications Medication Instructions Recorded Confirmed Type Levothyroxine Sodium [Synthroid] 175 mcg PO DAILY 02/23/14 08/25/21 History traMADol HCL [Tramadol HCl] 50 mg PO BID PRN 10/17/14 08/25/21 History ALPRAZolam [Xanax] 0.5 mg PO BID PRN 04/27/18 08/25/21 History levETIRAcetam [Keppra] 750 mg PO BID 11/07/20 08/25/21 History Metoprolol Tartrate [Lopressor] 12.5 mg PO BID 12/03/20 08/25/21 History Zinc Gluconate [Zinc] 50 tab PO DAILY 12/03/20 08/25/21 History Calcium Carbonate [Calcium] 600 mg PO DAILY 08/25/21 08/25/21 History Cholecalciferol [Vitamin D3 (25 25 mcg PO DAILY 08/25/21 08/25/21 History Mcg = 1000 Iu)] Cyclobenzaprine [Flexeril] 10 mg PO QID PRN 08/25/21 08/25/21 History Sertraline HCl [Zoloft] 100 mg PO DAILY 08/25/21 08/25/21 History Allergies Allergy/AdvReac Type Severity Reaction Status Date / Time azithromycin Allergy Rapid Verified 08/25/21 11:12 Heart Rate Penicillins Allergy Swelling Verified 08/25/21 11:12 of legs Physical Exam Vitals: Vital Signs Temp Pulse Pulse Resp BP BP Pulse Ox 08/26/21 06:12 70 16 100/70 98 08/26/21 04:35 64 16 93/59 99 08/26/21 01:05 97.7 F 71 16 108/68 100 08/25/21 23:00 66 18 101/61 100 08/25/21 19:46 75 16 100/60 100 08/25/21 19:00 80 18 98/64 08/25/21 18:30 76 18 98/64 08/25/21 18:00 69 18 96/62 08/25/21 17:30 70 96/62 08/25/21 17:00 69 68 H 92/55 08/25/21 16:30 75 88 H 92/55 08/25/21 15:30 79 89 H 93/55 08/25/21 15:00 73 90 H 93/55 08/25/21 14:30 77 98 H 93/62 08/25/21 14:00 78 18 97/57 08/25/21 12:31 97 18 113/60 98 08/25/21 12:00 76 16 111/73 98 08/25/21 09:44 117 H 18 99/67 99 Intake and Output 08/25/21 08/26/21 08/26/21 22:59 06:59 14:59 Intake Total 47.583 Balance 47.583 Intake: Intake, IV Titration 47.583 Amount Diltiazem 125 mg In 47.583 Sodium Chloride 0.9% 100 ml @ 5 MG/HR 5 mls/hr IV .Q24H [facility] Rx#:[id number] Results 08/25/21 07:56 08/25/21 07:56 Cardiac Enzymes 08/25/21 08/25/21 08/25/21 Range/Units 12:34 15:49 20:20 Troponin I 0.080 H* 0.109 H* 0.105 H* (0.000-0.034) ng/mL Coagulation 08/25/21 08/26/21 Range/Units 15:49 03:05 APTT 63.1 H 69.3 H (22.0-30.0) sec Current Medications Generic Name Dose Route Start Last Admin Trade Name Freq PRN Reason Stop Dose Admin Alprazolam 0.5 mg 08/25/21 10:23 Alprazolam 0.5 Mg Tab PO BID PRN Anxiety Aspirin 81 mg 08/26/21 09:00 Aspirin [address] [facility] Calcium Carbonate/Glycine 500 mg 08/26/21 09:00 Calcium Carbonate [address] [facility] Cholecalciferol 25 mcg 08/26/21 09:00 Cholecalciferol 25 Mcg (1000 Iu) Tablet PO DAILY [facility] Cyclobenzaprine HCl 10 mg 08/25/21 10:23 Cyclobenzaprine 10 Mg Tab PO QID PRN Muscle Spasm Diltiazem HCl 125 mg/ Sodium 125 mls @ 5 mls/hr 08/25/21 09:00 08/26/21 08:39 Chloride IV Not Given .Q24H [facility] 5 MG/HR Heparin Sodium/Sodium Chloride 250 mls @ 9.253 mls/hr 08/25/21 09:30 08/25/21 09:38 25,000 unit/ Sodium Chloride IV 12 units/kg/hr .Q24H [facility]ELVA 9.253 mls/hr Administration Protocol 12 UNITS/KG/HR Levetiracetam 750 mg 08/25/21 21:00 08/25/21 20:17 Levetiracetam 750 Mg Tab PO Not Given BID [facility] Levothyroxine Sodium 176 mcg 08/26/21 06:30 08/26/21 06:51 Levothyroxine 88 Mcg Tab PO 176 mcg DAILY@0630 [facility] Administration Metoprolol Tartrate 12.5 mg 08/25/21 21:00 08/25/21 20:17 Metoprolol Tartrate 12.5 Mg Tab PO Not Given BID [facility] Nitroglycerin 0.4 mg 08/25/21 09:26 Nitroglycerin Sl Tabs 0.4 Mg Tab SUBLINGUAL Q5M PRN Chest Pain Tramadol HCl 50 mg 08/25/21 10:23 Tramadol 50 Mg Tab PO BID PRN Pain Zinc Sulfate 220 mg 08/26/21 09:00 Zinc Sulfate 220 Mg Cap PO DAILY [facility] Intake and Output 08/25/21 08/26/21 08/26/21 22:59 06:59 14:59 Intake Total 47.583 Balance 47.583 Intake: Intake, IV Titration 47.583 Amount Diltiazem 125 mg In 47.583 Sodium Chloride 0.9% 100 ml @ 5 MG/HR 5 mls/hr IV .Q24H [facility] Rx#:[id number] 08/25/21 07:56 08/25/21 07:56
--- NOTE | 2021-08-26 13:00 | P.DS ---
Providers Date of admission: 08/25/21 09:26 Expected date of discharge: 08/26/21 Attending physician: Sweetie Moreno Consults: 08/25/21 09:26 Consult Physician Urgent Consulting Provider: [facility] Consult Reason/Comments: A. fib with rapid ventricular response Do you want consulting provider notified?: Yes Primary care physician: Sweetie Moreno Hospital Course: HISTORY OF PRESENT ILLNESS: This is a 66-year-old female one of my patient with a past medical history significant for hypertension and hypertensive cardiovascular disease, hyperlipidemia, history of paroxysmal atrial fibrillation , history of mild CAD,Anxiety disorder osteoarthritis status post bilateral total knee arthroplasty, history of the obesity status post bariatric surgery with gastric bypass, history of hypothyroidism, history of seizure disorder, history of chronic low back pain, patient presented to the emergency department at [facility] with increased palpitation associated with increased shortness of breath along with the chest pain radiating to the side of the jaw patient took a whole pill of metoprolol tried to break her atrial for relation because she has that happen before, she stated that she has seen her employer relations representative about a few months back and had echocardiogram did not have the results of that, she usually follow with Dr. Piña as an outpatient and regular basis, she follows up with me as an outpatient as well patient was found to be in atrial fibrillation with rapid ventricular response, she was given a liter of IV fluid normal saline, she was started on Cardizem drip as well as heparin drip, and she was admitted to the hospital for evaluation by cardiology. Patient was hospitalized back in 2019 for age her for relation with rapid ventricle response at that time she was seen in consultation by cardiology underwent Lexiscan Cardiolite stress test that was negative for stress-induced ischemia, patient recently had an echocardiogram at Dr. Piña's office the results of which still pending at the time of dictation, patient did have a CHADS-VASC SCORE of 1 vessel she was not placed on it long-term anticoagulation, patient did have a left heart catheterization back in 2005 and that showed mild non-occlusive coronary artery disease. 08/26: She is seen today in the emergency center waiting for a bed on the cardiac stepdown unit. Patient has converted to sinus rhythm and is off Cardizem drip. She states that she has felt her heart flip flop a few times since yesterday. She has been resumed on her home dose of Lopressor 12.5 mg twice daily. Patient states that she normally has low blood pressure and cannot tolerate a higher dose on Lopressor. She is still on heparin drip. She has been seen by cardiology and was cleared for discharge. Echocardiogram reveals She'll be discharged home today in stable condition. DISCHARGE DIAGNOSES 1. Atrial fibrillation with rapid ventricular response, paroxysmal atrial fibrillation, converted to sinus rhythm. 2. Hypotension likely related to A. fib with RVR. 3. Hyperlipidemia. 4. Hypothyroidism. 5. Seizure disorder. 6. History of gastric bypass surgery. Stable. 7. History of fibromyalgia. 8. Generalized anxiety disorder. 9. Chronic low back pain with chronic pain syndrome. DISCHARGE PLAN Home Greater than 35 minutes was utilized and coordinating patient's discharge. Impression and plan of care have been directed as dictated by the signing physician. Naila Harkins nurse practitioner acting as scribe for signing physician. Patient Condition at Discharge: Good Plan - Discharge Summary New Discharge Prescriptions: New Aspirin 81 mg PO DAILY tab Continue Levothyroxine Sodium [Synthroid] 175 mcg PO DAILY traMADol HCL [Tramadol HCl] 50 mg PO BID PRN PRN Reason: Pain ALPRAZolam [Xanax] 0.5 mg PO BID PRN PRN Reason: Anxiety levETIRAcetam [Keppra] 750 mg PO BID Metoprolol Tartrate [Lopressor] 12.5 mg PO BID Zinc Gluconate [Zinc] 50 tab PO DAILY Calcium Carbonate [Calcium] 600 mg PO DAILY Cyclobenzaprine [Flexeril] 10 mg PO QID PRN PRN Reason: Muscle Spasm Cholecalciferol [Vitamin D3 (25 Mcg = 1000 Iu)] 25 mcg PO DAILY Sertraline HCl [Zoloft] 100 mg PO DAILY Discharge Medication List Levothyroxine Sodium [Synthroid] 175 mcg PO DAILY 02/23/14 [History] traMADol HCL [Tramadol HCl] 50 mg PO BID PRN 10/17/14 [History] ALPRAZolam [Xanax] 0.5 mg PO BID PRN 04/27/18 [History] levETIRAcetam [Keppra] 750 mg PO BID 11/07/20 [History] Metoprolol Tartrate [Lopressor] 12.5 mg PO BID 12/03/20 [History] Zinc Gluconate [Zinc] 50 tab PO DAILY 12/03/20 [History] Calcium Carbonate [Calcium] 600 mg PO DAILY 08/25/21 [History] Cholecalciferol [Vitamin D3 (25 Mcg = 1000 Iu)] 25 mcg PO DAILY 08/25/21 [History] Cyclobenzaprine [Flexeril] 10 mg PO QID PRN 08/25/21 [History] Sertraline HCl [Zoloft] 100 mg PO DAILY 08/25/21 [History] Aspirin 81 mg PO DAILY tab 08/26/21 [Rx] Follow up Appointment(s)/Referral(s): Millie Piña MD [STAFF PHYSICIAN] - 1 Week (Unable to get through. Please call to schedule appoinment) Sweetie Moreno MD [Primary Care Provider] - 08/29/21 10:30 am () Patient Instructions/Handouts: A-fib (Atrial Fibrillation) (DC) Discharge Disposition: HOME SELF-CARE
[2021-08-26 14:15] VITALS: BP 131/60; PULSE 67
[2021-08-26 14:35] LABS: Triglycerides 46.3 mg/dL (0.00-149.00); VLDL Calculation 9.26 mg/dL (5.00-40.00)
--- NOTE | 2021-08-27 11:01 | ECHOF ---
Referral Reason:LV function MEASUREMENTS -------- HEIGHT: 152.4 cm WEIGHT: 77.1 kg BP: RVIDd: 3.4 cm (< 3.3) IVSd: 0.8 cm (0.6 - 1.1) LVIDd: 3.5 cm (3.9 - 5.3) LVPWd: 1.2 cm (0.6 - 1.1) IVSs: 1.2 cm LVIDs: 2.9 cm LVPWs: 1.2 cm LA Diam: 3.4 cm (2.7 - 3.8) Ao Diam: 2.9 cm (2.0 - 3.7) AV Cusp: 1.7 cm (1.5 - 2.6) LA Diam: 3.7 cm (2.7 - 3.8) MV EXCURSION: 14.924 mm (> 18.000) MV EF SLOPE: 54 mm/s (70 - 150) EPSS: 0.4 cm MV E Weslye: 0.73 m/s MV DecT: 161 ms MV A Wesley: 0.99 m/s MV E/A Ratio: 0.73 RAP: 5.00 mmHg RVSP: 22.99 mmHg FINDINGS -------- Sinus rhythm. This was a technically adequate study. LV size, wall thickness and systolic function are normal, with an EF greater than 55%. The left dawson tricular size is normal. The right ventricle is normal in size. The left atrial size is normal. The right atrial size is normal. There is mild aortic valve sclerosis. There is mild aortic regurgitation. Mild mitral annular calcification present. Mild mitral regurgitation is present. The tricuspid valve appears structurally normal. Mild tricuspid regurgitation present. Right vent ricular systolic pressure is normal at < 35 mmHg. There is no pulmonic regurgitation present. The aortic root size is normal. There is no pericardial effusion. CONCLUSIONS -------- 1. LV size, wall thickness and systolic function are normal, with an EF greater than 55%. 2. The left atrial size is normal. 3. There is mild aortic valve sclerosis. 4. There is mild aortic regurgitation. 5. Mild mitral regurgitation is present. 6. Mild tricuspid regurgitation present. 7. There is no pericardial effusion. BINGO FLOATER: Lupis Lancaster RDCS
== END 2021-08-26 15:02 | disposition home or self-care (01) ==
LOC: EC 07:32 → INTOOBSV 09:26 → 3SCARD 09:26 → UNDODISIN 08-26 15:02
PROVIDERS: ADMIT Internal Medicine; ATTEND Internal Medicine
DX: I48.0 Paroxysmal atrial fibrillation (principal); E06.3 Autoimmune thyroiditis; I95.9 Hypotension, unspecified; I11.9 Hypertensive heart disease without heart failure; I08.3 Combined rheumatic disorders of mitral, aortic and tricuspid valves; I25.10 Atherosclerotic heart disease of native coronary artery without angina pectoris; M79.7 Fibromyalgia; M19.90 Unspecified osteoarthritis, unspecified site; F41.1 Generalized anxiety disorder; G40.909 Epilepsy, unspecified, not intractable, without status epilepticus; E78.5 Hyperlipidemia, unspecified; G89.4 Chronic pain syndrome; M54.59 Other low back pain; E66.9 Obesity, unspecified; Z68.33 Body mass index [BMI] 33.0-33.9, adult; Z20.822 Contact with and (suspected) exposure to COVID-19; Z79.890 Hormone replacement therapy; Z79.899 Other long term (current) drug therapy; Z88.0 Allergy status to penicillin; Z88.1 Allergy status to other antibiotic agents; Z90.49 Acquired absence of other specified parts of digestive tract; Z87.19 Personal history of other diseases of the digestive system; Z86.16 Personal history of COVID-19; Z98.84 Bariatric surgery status; Z90.710 Acquired absence of both cervix and uterus; Z98.51 Tubal ligation status; Z98.891 History of uterine scar from previous surgery; Z96.653 Presence of artificial knee joint, bilateral; Z98.890 Other specified postprocedural states; Z82.0 Family history of epilepsy and other diseases of the nervous system; Z80.7 Family history of other malignant neoplasms of lymphoid, hematopoietic and related tissues; Z82.49 Family history of ischemic heart disease and other diseases of the circulatory system; Z83.49 Family history of other endocrine, nutritional and metabolic diseases
CPT/HCPCS: 96376 ×2; 96365; 96366 ×2; 96367; 96361; 96375; 99291; 36415; 93005 ×2; 93306; 80061; 80053; 83735; 84443; 84484; 85025; 85610; 85730 ×2; 87635; 71045; G0378 ×2; J2060; J1644 ×2; 96374

== ENCOUNTER → 2021-10-08 | Outpatient (CLI) | payer MEDICARE ==
[~2021-10-08] MED LIST changes: +CASIRIVIMAB (REGN10933) (EUA) 600 MG, IMDEVIMAB (REGN10987) (EUA) 600 MG in SODIUM CHLO... IVPB ONE; -LACTATED RINGERS 1,000 ML IV SCH; -LIDOCAINE 1% (10MG/ML) FOR IV START INTRADERMA PRN; +SODIUM CHLORIDE 0.9% 50 ML IVPB ONE; +SODIUM CHLORIDE 0.9% 500 ML 500 ML in EMPTY BAG 1 BAG IV PRN
[2021-10-08 14:56] VITALS: RESP 16
[2021-10-08 15:08] VITALS: TEMP 98.7
[2021-10-08 15:43] VITALS: BP 112/72; PULSE 70
== END ==
LOC: PROCWHC3 13:58
PROVIDERS: ATTEND Internal Medicine
DX: U07.1 COVID-19 (principal); Z88.1 Allergy status to other antibiotic agents; Z88.0 Allergy status to penicillin
CPT/HCPCS: 96360; Q0244; M0243

== ENCOUNTER → 2022-01-28 | Outpatient (CLI) | payer MEDICARE ==
--- NOTE | 2022-01-30 09:38 | MM ---
Reason for exam: screening (asymptomatic). Last mammogram was performed 3 years and 7 months ago. History: Patient is postmenopausal. Benign stereotactic core biopsy of the left breast, November 28, 1998. Taking estrogen for 1 year beginning at age 58. Physical Findings: A clinical breast exam by your physician is recommended on an annual basis and results should be correlated with mammographic findings. MG 3D Screening Mammo W/Cad Bilateral CC and MLO view(s) were taken. Prior study comparison: July 14, 2018, bilateral MG screening mammo w CAD. January 26, 2017, bilateral MG screening mammo w CAD. Focal asymmetry on MLO tomosynthesis. Not clearly on CC view. This finding is changed when compared with previous exams. ASSESSMENT: Incomplete: need additional imaging evaluation, BI-RAD 0 RECOMMENDATION: Special view mammogram of the right breast. If lesion persists on supplemental views, image directed ultrasound is recommended. [facility] will attempt to contact patient to return for supplemental views and ultrasound if indicated.
== END | disposition home or self-care (01) ==
LOC: RADMAMWWP 12:28
PROVIDERS: ATTEND Obstetrics & Gynecology
DX: Z12.31 Encounter for screening mammogram for malignant neoplasm of breast (principal); Z78.0 Asymptomatic menopausal state
CPT/HCPCS: 77063; 77067

== ENCOUNTER → 2022-01-31 | Outpatient (CLI) | payer MEDICARE ==
--- NOTE | 2022-02-03 08:33 | MM ---
Reason for exam: additional evaluation requested from abnormal screening. Last mammogram was performed less than 1 month ago. History: Patient is postmenopausal. Benign stereotactic core biopsy of the left breast, November 28, 1998. Taking estrogen for 1 year beginning at age 58. Physical Findings: A clinical breast exam by your physician is recommended on an annual basis and results should be correlated with mammographic findings. MG 3D Work Up W/Cad RT ML and spot compression MLO view(s) were taken of the right breast. Prior study comparison: January 28, 2022, bilateral MG 3d screening mammo w/cad. July 14, 2018, bilateral MG screening mammo w CAD. There are scattered fibroglandular densities. No distinct new lesion persists on additional views. Results were given to the patient verbally at the time of the exam. ASSESSMENT: Benign, BI-RAD 2 RECOMMENDATION: Return to routine screening mammogram schedule for both breasts.
== END | disposition home or self-care (01) ==
LOC: RADMAMWWP 13:34
PROVIDERS: ATTEND Obstetrics & Gynecology
DX: R92.8 Other abnormal and inconclusive findings on diagnostic imaging of breast (principal); Z78.0 Asymptomatic menopausal state
CPT/HCPCS: 77065; G0279; 77061

== ENCOUNTER 2022-02-09 10:56 | Emergency (ER) | payer MEDICARE ==
[2022-02-09] MEDS ORDERED: SODIUM CHLORIDE 0.9% 1,000 ML IV STA (11:15)
[2022-02-09] MEDS ORDERED: FAMOTIDINE 20 MG/2 ML VIAL IV STA (11:18)
[2022-02-09] MEDS ORDERED: ONDANSETRON 4 MG/2 ML VIAL IVP STA (11:18)
[2022-02-09] MEDS ORDERED: MORPHINE SULFATE 4 MG/ML SYRINGE IVP STA (11:18)
[2022-02-09 11:20] VITALS: TEMP 97.2
[2022-02-09 11:52] LABS: Basophils # (A) 0.1 k/uL (0-0.2); Basophils % (A) 1 %; Eosinophils % (A) 1 %; HCT 36.7 % (34.0-46.0); HGB 11.9 gm/dL (11.4-16.0); Lymphocytes # (A) 1.2 k/uL (1.0-4.8); Lymphocytes % (A) 19 %; MCH 30.2 pg (25.0-35.0); MCHC 32.3 g/dL (31.0-37.0); MCV 93.6 fL (80.0-100.0); Mean Platelet Volume 6.9; Monocytes # (A) 0.4 k/uL (0-1.0); Monocytes % (A) 7 %; Neutrophils # (A) 4.4 k/uL (1.3-7.7); Neutrophils % (A) 71 %; Platelet Count 262 k/uL (150-450); RBC 3.92 m/uL (3.80-5.40); RDW 13.5 % (11.5-15.5); WBC 6.2 k/uL (3.8-10.6)
[2022-02-09 12:01] LABS: ALT 23 U/L (4-34); AST 30 U/L (14-36); African American GFR (CKD) >90 (>60 ml/min/1.73 sqM); Albumin 3.2 g/dL (3.5-5.0); Alkaline Phosphatase 96 U/L (38-126); Amylase 50 U/L (30-110); Anion Gap 5 mmol/L; Blood Urea Nitrogen 16 mg/dL (7-17); Calcium 8.7 mg/dL (8.4-10.2); Carbon Dioxide 27 mmol/L (22-30); Chloride 105 mmol/L (98-107); Glucose 103 mg/dL (74-99); Lipase 86 U/L (23-300); Non-African American GFR(CKD) >90 (>60 ml/min/1.73 sqM); Potassium 3.7 mmol/L (3.5-5.1); Sodium 137 mmol/L (137-145); Total Bilirubin 0.7 mg/dL (0.2-1.3); Total Protein 5.5 g/dL (6.3-8.2)
[2022-02-09 12:08] LABS: INR 0.9 (<1.2); Prothrombin Time 10.3 sec (9.0-12.0)
[2022-02-09 12:29] LABS: Partial Thromboplastin Time 21.2 sec (22.0-30.0)
--- NOTE | 2022-02-09 13:48 | CT ---
EXAMINATION TYPE: CT brain wo con CT DLP: 1290.4 mGycm, Automated exposure control for dose reduction was used. DATE OF EXAM: 02/09/2022 1:08 PM COMPARISON: MR brain 08/27/2019 CLINICAL INDICATION:Female, 67 years old with history of syncope TECHNIQUE: Brain: Multiple axial CT images of the brain were obtained without IV contrast. FINDINGS: Brain: Extra-axial spaces: No abnormal extra-axial fluid collections. Ventricular system: Within normal limits Cerebral parenchyma: No acute intraparenchymal hemorrhage or mass effect. The stephen-white junction is well differentiated. Scattered hypoattenuating areas are seen within the white matter. Cerebellum: Unremarkable. Mass effect: No evidence of midline shift. Intracranial vasculature: unremarkable Soft tissues: Normal. Calvarium/osseous structures: No depressed skull fracture. Paranasal sinuses and mastoid air cells: Mild scattered paranasal sinus disease. Visualized orbits: Orbital contents are intact. IMPRESSION: 1. No acute intracranial process. 2. Nonspecific white matter changes, likely secondary to chronic small vessel ischemic disease.
--- NOTE | 2022-02-09 13:56 | ED ---
General Adult HPI - General Chief complaint: Syncope Stated complaint: Syncope Time Seen by Provider: 02/09/22 11:13 Source: patient, EMS, RN notes reviewed, old records reviewed Mode of arrival: EMS Limitations: no limitations - History of Present Illness Initial comments: Patient is a 67-year-old male presents emergency Department following a syncopal versus near syncopal episode. Patient has a history of IBS as well as syncopal episodes. Also has a history of seizures and takes seizure medications for it. Was at [employer], and began having crampy abdominal pain. Believed IBS was starting. She began feeling hot. Went and sat down outside of the [employer] on steps, when she passed out. She was "out of it" per family for approximately 15-20 minutes. Did not bite her tongue. No loss of bowels. When EMS arrived, she was still drowsy, however since arrival is responding to questioning is acting normally. Patient is on blood thinners. Denies hitting her head. Has no acute complaints on evaluation. Denies any chest pain, abdominal pain, nausea, vomiting. Denies any blurry vision, weakness, numbness. Presents for evaluation following syncope. Was never formally worked up. - Related Data Home Medications Medication Instructions Recorded Confirmed Levothyroxine Sodium [Synthroid] 175 mcg PO DAILY 02/23/14 08/25/21 traMADol HCL [Tramadol HCl] 50 mg PO BID PRN 10/17/14 08/25/21 ALPRAZolam [Xanax] 0.5 mg PO BID PRN 04/27/18 08/25/21 levETIRAcetam [Keppra] 750 mg PO BID 11/07/20 08/25/21 Metoprolol Tartrate [Lopressor] 12.5 mg PO BID 12/03/20 08/25/21 Zinc Gluconate [Zinc] 50 tab PO DAILY 12/03/20 08/25/21 Calcium Carbonate [Calcium] 600 mg PO DAILY 08/25/21 08/25/21 Cholecalciferol [Vitamin D3 (25 25 mcg PO DAILY 08/25/21 08/25/21 Mcg = 1000 Iu)] Cyclobenzaprine [Flexeril] 10 mg PO QID PRN 08/25/21 08/25/21 Sertraline HCl [Zoloft] 100 mg PO DAILY 08/25/21 08/25/21 Previous Rx's Medication Instructions Recorded Aspirin 81 mg PO DAILY tab 08/26/21 Allergies Allergy/AdvReac Type Severity Reaction Status Date / Time azithromycin Allergy Rapid Verified 02/09/22 11:15 Heart Rate Penicillins Allergy Swelling Verified 02/09/22 11:15 of legs Review of Systems ROS Statement: Those systems with pertinent positive or pertinent negative responses have been documented in the HPI. Review of Systems: CONST: Denies fever EYES: Denies blurry vision ENT: Denies nasal congestion C/V: Denies Chest pain RESP: Denies shortness of breath GI: Denies abdominal pain : Denies dysuria SKIN: Denies rash. MSK: Denies joint pain. NEURO: Denies headache ROS Other: All systems not noted in ROS Statement are negative. Past Medical History Past Medical History: Atrial Fibrillation, Fibromyalgia, Musculoskeletal Disorder, Thyroid Disorder Additional Past Medical History / Comment(s): ALBARO'S, CHRONIC BACK PAIN, covid History of Any Multi-Drug Resistant Organisms: None Reported Past Surgical History: Appendectomy, Bariatric Surgery, Breast Surgery, Section, Heart Catheterization, Hernia Repair, Hysterectomy, Joint Replacement, Tonsillectomy, Tubal Ligation Additional Past Surgical History / Comment(s): BILAT TKA, FOOT SX. Colonoscopy, EGD1, Hx.gastric bypass with esophagus repair (March 2015), HIATAL HERNIA, VENTRAL HERNIA Past Anesthesia/Blood Transfusion Reactions: No Reported Reaction Past Psychological History: Anxiety Smoking Status: Never smoker Past Alcohol Use History: Rare Past Drug Use History: None Reported - Past Family History Father Family Medical History: Coronary Artery Disease (CAD) Mother Family Medical History: Cancer Additional Family Medical History / Comment(s): NON-HODGKINS LYMPHOMA Brother(s) Family Medical History: Myocardial Infarction ([place]) Sister(s) Family Medical History: Myocardial Infarction ([place]), Thyroid Disorder General Exam - General Exam Comments Initial Comments: General: Appears in no acute distress. HEAD: Normal with no signs of head trauma. EYES: PERRLA, EOMI, conjunctiva normal, no discharge. Pupils are 3 mm equal bilaterally. ENT: Hearing grossly intact, normal oropharynx. RESPIRATORY: Clear breath sounds bilaterally. No wheezes, rales, or rhonchi. C/V: Regular rate and rhythm. S1 and S2 auscultated, no edema, peripheral pulses 2+ and intact throughout ABD: Abd is soft, nontender, nondistended EXT: Normal range of motion, no obvious deformity SKIN: No rashes or lesions observed on exposed skin. NEURO: Alert and oriented x 4. Cranial nerves II-XII intact. No focal sensory or strength deficits. NIH is 0. GCS is 15. Limitations: no limitations Course Vital Signs 02/09/22 02/09/22 02/09/22 11:02 13:14 15:09 Temperature 97.2 F L Pulse Rate 76 74 72 Respiratory 16 18 18 Rate Blood Pressure 100/56 107/64 111/73 O2 Sat by Pulse 96 97 96 Oximetry Procedures - [place] Protocol (Time Out) Nurse: Keisha Gomez Medical Decision Making - Medical Decision Making Based on the patient's presentation and physical exam, I'm concerned for a syncopal episode and the patient. Is on blood thinners and unknown if she hit her head. We'll obtain CT imaging. He is endorsing crappy abdominal pain but abdominal exam is relatively unremarkable. We'll obtain brain and abdomen and pelvis CT in addition to chest x-ray and cardiac labs. She'll be given fluids. She was in agreement this plan. She declines analgesic medications that she states her pain is under control. EKG showed no signs of acute ischemia. Chest x-ray revealed no acute cardio pulmonary process. Brain and abdomen and pelvis CTs were obtained, however there was a long delay in obtaining reads. Brain CT showed no acute intracranial process. Abdomen pelvis CT revealed no acute intra-abdominal process. There was stool present throughout her bowels. There are neck endings come bile duct dilation which is similar to prior status post cholecystectomy. Laboratory studies were remarkable for an undetected troponin. Lactic acid is mildly elevated 2.1 suggestive of acute dehydration. Covid is negative. Remainder the labs are unremarkable. On reevaluation, she is feeling improved. His no symptoms still. Vital signs remain within normal limits and stable. Is able to ambulate. Neurological exam is within normal limits. She would like to go home and follow-up with her PCP and neurologist, as she has had identical episodes in the past and she is confident she can follow up outpatient. I do believe this is reasonable after discussing strict return precautions. She was in agreement this plan. I instructed the patient to follow up with their PCP in the next 3 days. I explained that the patient should return to the emergency department if they experience any worsening symptoms. Strict return precautions were discussed with the patient. The patient expressed understanding of these instructions. I answered all questions that the patient had. The patient was discharged home in good condition with their prescriptions and follow up information. - Lab Data Result diagrams: 02/09/22 11:29 02/09/22 11:29 Lab Results 02/09/22 02/09/22 02/09/22 Range/Units 11:29 11:29 11:29 WBC 6.2 (3.8-10.6) k/uL RBC 3.92 (3.80-5.40) m/uL Hgb 11.9 (11.4-16.0) gm/dL Hct 36.7 (34.0-46.0) % MCV 93.6 (80.0-100.0) fL MCH 30.2 (25.0-35.0) pg MCHC 32.3 (31.0-37.0) g/dL RDW 13.5 (11.5-15.5) % Plt Count 262 (150-450) k/uL MPV 6.9 Neutrophils % 71 % Lymphocytes % 19 % Monocytes % 7 % Eosinophils % 1 % Basophils % 1 % Neutrophils # 4.4 (1.3-7.7) k/uL Lymphocytes # 1.2 (1.0-4.8) k/uL Monocytes # 0.4 (0-1.0) k/uL Eosinophils # 0.0 (0-0.7) k/uL Basophils # 0.1 (0-0.2) k/uL PT 10.3 (9.0-12.0) sec INR 0.9 (<1.2) APTT 21.2 L (22.0-30.0) sec Sodium 137 (137-145) mmol/L Potassium 3.7 (3.5-5.1) mmol/L Chloride 105 (98-107) mmol/L Carbon Dioxide 27 (22-30) mmol/L Anion Gap 5 mmol/L BUN 16 (7-17) mg/dL Creatinine 0.66 (0.52-1.04) mg/dL Est GFR (CKD-EPI)AfAm >90 (>60 ml/min/1.73 sqM) Est GFR (CKD-EPI)NonAf >90 (>60 ml/min/1.73 sqM) Glucose 103 H (74-99) mg/dL Lactic Ac Sepsis Rflx Plasma Lactic Acid Micky (0.7-2.0) mmol/L Calcium 8.7 (8.4-10.2) mg/dL Total Bilirubin 0.7 (0.2-1.3) mg/dL AST 30 (14-36) U/L ALT 23 (4-34) U/L Alkaline Phosphatase 96 (38-126) U/L Troponin I (0.000-0.034) ng/mL Total Protein 5.5 L (6.3-8.2) g/dL Albumin 3.2 L (3.5-5.0) g/dL Amylase 50 (30-110) U/L Lipase 86 (23-300) U/L Coronavirus (PCR) (Not Detectd) 02/09/22 02/09/22 02/09/22 Range/Units 11:29 11:29 11:44 WBC (3.8-10.6) k/uL RBC (3.80-5.40) m/uL Hgb (11.4-16.0) gm/dL Hct (34.0-46.0) % MCV (80.0-100.0) fL MCH (25.0-35.0) pg MCHC (31.0-37.0) g/dL RDW (11.5-15.5) % Plt Count (150-450) k/uL MPV Neutrophils % % Lymphocytes % % Monocytes % % Eosinophils % % Basophils % % Neutrophils # (1.3-7.7) k/uL Lymphocytes # (1.0-4.8) k/uL Monocytes # (0-1.0) k/uL Eosinophils # (0-0.7) k/uL Basophils # (0-0.2) k/uL PT (9.0-12.0) sec INR (<1.2) APTT (22.0-30.0) sec Sodium (137-145) mmol/L Potassium (3.5-5.1) mmol/L Chloride (98-107) mmol/L Carbon Dioxide (22-30) mmol/L Anion Gap mmol/L BUN (7-17) mg/dL Creatinine (0.52-1.04) mg/dL Est GFR (CKD-EPI)AfAm (>60 ml/min/1.73 sqM) Est GFR (CKD-EPI)NonAf (>60 ml/min/1.73 sqM) Glucose (74-99) mg/dL Lactic Ac Sepsis Rflx Plasma Lactic Acid Micky 2.1 H* (0.7-2.0) mmol/L Calcium (8.4-10.2) mg/dL Total Bilirubin (0.2-1.3) mg/dL AST (14-36) U/L ALT (4-34) U/L Alkaline Phosphatase (38-126) U/L Troponin I <0.012 (0.000-0.034) ng/mL Total Protein (6.3-8.2) g/dL Albumin (3.5-5.0) g/dL Amylase (30-110) U/L Lipase (23-300) U/L Coronavirus (PCR) Not Detected (Not Detectd) 02/09/22 Range/Units 12:03 WBC (3.8-10.6) k/uL RBC (3.80-5.40) m/uL Hgb (11.4-16.0) gm/dL Hct (34.0-46.0) % MCV (80.0-100.0) fL MCH (25.0-35.0) pg MCHC (31.0-37.0) g/dL RDW (11.5-15.5) % Plt Count (150-450) k/uL MPV Neutrophils % % Lymphocytes % % Monocytes % % Eosinophils % % Basophils % % Neutrophils # (1.3-7.7) k/uL Lymphocytes # (1.0-4.8) k/uL Monocytes # (0-1.0) k/uL Eosinophils # (0-0.7) k/uL Basophils # (0-0.2) k/uL PT (9.0-12.0) sec INR (<1.2) APTT (22.0-30.0) sec Sodium (137-145) mmol/L Potassium (3.5-5.1) mmol/L Chloride (98-107) mmol/L Carbon Dioxide (22-30) mmol/L Anion Gap mmol/L BUN (7-17) mg/dL Creatinine (0.52-1.04) mg/dL Est GFR (CKD-EPI)AfAm (>60 ml/min/1.73 sqM) Est GFR (CKD-EPI)NonAf (>60 ml/min/1.73 sqM) Glucose (74-99) mg/dL Lactic Ac Sepsis Rflx Y Plasma Lactic Acid Micky (0.7-2.0) mmol/L Calcium (8.4-10.2) mg/dL Total Bilirubin (0.2-1.3) mg/dL AST (14-36) U/L ALT (4-34) U/L Alkaline Phosphatase (38-126) U/L Troponin I (0.000-0.034) ng/mL Total Protein (6.3-8.2) g/dL Albumin (3.5-5.0) g/dL Amylase (30-110) U/L Lipase (23-300) U/L Coronavirus (PCR) (Not Detectd) - EKG Data -: EKG Interpreted by Me EKG Comments: 12-lead Electrocardiogram Interpretation Note EKG was reviewed and interpreted by myself. 12-lead ECG performed at 1110 is interpreted by me as revealing normal sinus rhythm at a rate of 70 beats per minute. [place] is normal. [place] interval is 176 ms, QRS duration is 89 ms, QTc is 4 35 ms.. There were no ST or T wave abnormalities to suggest myocardial ischemia or injury. R wave progression across the precordium was satisfactory. By my interpretation this EKG is non-diagnostic for acute ischemia. Disposition Clinical Impression: Near syncope, IBS (irritable bowel syndrome), Dehydration Disposition: HOME SELF-CARE Condition: Good Instructions (If sedation given, give patient instructions): Syncope (ED) Is patient prescribed a controlled substance at d/c from ED?: No Referrals: Sweetie Moreno MD [Primary Care Provider] - 1-2 days Time of Disposition: 14:25
--- NOTE | 2022-02-09 13:57 | CT ---
EXAMINATION TYPE: CT abdomen pelvis w con CT DLP: 1017 mGycm, Automated exposure control for dose reduction was used. DATE OF EXAM: 02/09/2022 1:09 PM COMPARISON: CT abdomen pelvis most recent from 01/06/2021. CLINICAL INDICATION:Female, 67 years old with history of abdominal pain; Generalized abdominal pain TECHNIQUE: Standard CT of the abdomen and pelvis following the administration of 100 cc of Isovue 3 00 IV contrast material. Coronal and sagittal reformats were performed. FINDINGS: LOWER CHEST: Unremarkable ABDOMEN LIVER: Unremarkable GALLBLADDER AND BILE DUCTS: Gallbladder is surgically absent with mild intrahepatic and extra hepatic biliary dilatation likely physiologic and a postcholecystectomy change. No evidence of choledocholit hiasis. PANCREAS: Unremarkable. SPLEEN: Unremarkable. ADRENAL GLANDS: Unremarkable. KIDNEYS AND URETERS: No evidence of hydronephrosis or renal calculus. The ureters are unremarkable. PELVIS BLADDER: Unremarkable REPRODUCTIVE: Unremarkable. ABDOMEN & PELVIS STOMACH AND BOWEL: Postsurgical changes to the stomach and small bowel. No evidence of bowel obstruct ion. Large amount stool seen throughout the colon. Scattered clonic diverticula present. PERITONEUM: No evidence of pneumoperitoneum or free fluid. VASCULATURE: No evidence of aortic aneurysm. Scattered atherosclerosis of the arterial vasculature. MUSCULOSKELETAL: No acute osseous abnormalities. Mild scattered multilevel degenerative changes of th e spine with grade 1 anterolisthesis of L5 on S1 which is unchanged from prior. No spondylolysis. LYMPH NODES: No gross evidence for lymphadenopathy. SOFT TISSUE/ABDOMINAL WALL: Unremarkable IMPRESSION: 1. No evidence for acute abdominal process. 2. Common bile duct dilation similar to prior likely postcholecystectomy physiology. 3. Moderate to large stool burden throughout the colon.
--- NOTE | 2022-02-09 14:06 | XR ---
EXAMINATION TYPE: XR chest 2V DATE OF EXAM: 02/09/2022 1:18 PM COMPARISON: Chest radiographs from 08/25/2021. TECHNIQUE: XR chest 2V Frontal and lateral views of the chest. CLINICAL INDICATION:Female, 67 years old with history of syncope; FINDINGS: Lungs/Pleura: There is no evidence of pleural effusion, focal consolidation, or pneumothorax. Pulmonary vascularity: Unremarkable. Heart/mediastinum: Cardiomediastinal silhouette is unremarkable. Musculoskeletal: No acute osseous pathology. IMPRESSION: No acute cardiopulmonary disease/process.
[2022-02-09 15:17] VITALS: RESP 18
[2022-02-09 15:19] VITALS: BP 111/73; PULSE 72
== END 2022-02-09 15:09 | disposition home or self-care (01) ==
LOC: SUPCPDRO 10:56 → EC 10:56
DX: R55 Syncope and collapse (principal); K58.9 Irritable bowel syndrome, unspecified; E07.9 Disorder of thyroid, unspecified; Z79.890 Hormone replacement therapy; Z82.49 Family history of ischemic heart disease and other diseases of the circulatory system; Z20.822 Contact with and (suspected) exposure to COVID-19; Z88.1 Allergy status to other antibiotic agents; Z88.0 Allergy status to penicillin
CPT/HCPCS: 93005; 80053; 82150; 83605; 83690; 84484; 85025; 85610; 85730; 87635; 71046; 70450; 74177; 99285; 96374; 96375; 96361; J2405; Q9967

== ENCOUNTER 2022-04-14 06:29 | Day surgery (SDC) | payer MEDICARE ==
[~2022-04-14 06:29] MED LIST changes: -CASIRIVIMAB (REGN10933) (EUA) 600 MG, IMDEVIMAB (REGN10987) (EUA) 600 MG in SODIUM CHLO... IVPB ONE; +LACTATED RINGERS 1,000 ML IV SCH; +LIDOCAINE 1% (10MG/ML) FOR IV START INTRADERMA PRN; -SODIUM CHLORIDE 0.9% 50 ML IVPB ONE; -SODIUM CHLORIDE 0.9% 500 ML 500 ML in EMPTY BAG 1 BAG IV PRN
[2022-04-14 07:11] VITALS: RESP 16; TEMP 98.5
[2022-04-14] MEDS ORDERED: LIDOCAINE 2% INJ 20 MG/ML (2 ML VIAL) ONE (07:36)
[2022-04-14] MEDS ORDERED: PROPOFOL 10 MG/ML 20 ML VIAL IV ONE (07:36)
--- NOTE | 2022-04-14 07:42 | P.GSHP ---
History of Present Illness H&P Date: 04/14/22 CHIEF COMPLAINT: Esophageal stricture HISTORY OF PRESENT ILLNESS: The patient is a 67-year-old female who presents reports dysphagia. Upper endoscopy was offered for further evaluation and management. PAST MEDICAL HISTORY: Please see list. PAST SURGICAL HISTORY: Please see list. MEDICATIONS: Please see list. ALLERGIES: Please see list. SOCIAL HISTORY: No illicit drug use FAMILY HISTORY: No reports of Crohn disease or ulcerative colitis. REVIEW OF ORGAN SYSTEMS: CONSTITUTIONAL: No reports of fevers or chills. GI: Denies any blood in stools or constipation. PHYSICAL EXAM: VITAL SIGNS: Stable GENERAL: Well-developed and pleasant in no acute distress. HEENT: No scleral icterus. Extraocular movements grossly intact. Moist buccal mucosa. NECK: Supple without lymphadenopathy. CHEST: Unlabored respirations. Equal bilateral excursions. CARDIOVASCULAR: Regular rate and rhythm. Distal 2+ pulses. ABDOMEN: Soft, nondistended. MUSCULOSKELETAL: No clubbing, cyanosis, or edema. ASSESSMENT: 1. Esophageal stricture PLAN: 1. Recommend proceeding with an upper endoscopy with rigid dilators. 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 Colonoscopy, EGD1/, Hx.gastric bypass with esophagus repair (March 2015), HIATAL HERNIA, VENTRAL HERNIA Past Anesthesia/Blood Transfusion Reactions: No Reported Reaction Smoking Status: Never smoker - Past Family History Father Family Medical History: Coronary Artery Disease (CAD) Mother Family Medical History: Cancer Additional Family Medical History / Comment(s): NON-HODGKINS LYMPHOMA Brother(s) Family Medical History: Myocardial Infarction ([place]) Sister(s) Family Medical History: Myocardial Infarction ([place]), Thyroid Disorder Medications and Allergies Home Medications Medication Instructions Recorded Confirmed Type Levothyroxine Sodium [Synthroid] 175 mcg PO DAILY 02/23/14 04/14/22 History traMADol HCL [Tramadol HCl] 50 mg PO BID PRN 10/17/14 04/14/22 History ALPRAZolam [Xanax] 0.5 mg PO HS PRN 04/27/18 04/14/22 History levETIRAcetam [Keppra] 750 mg PO BID 11/07/20 04/14/22 History Metoprolol Tartrate [Lopressor] 12.5 mg PO 1300,2200 12/03/20 04/14/22 History Cyclobenzaprine [Flexeril] 10 mg PO QID PRN 08/25/21 04/14/22 History Sertraline HCl [Zoloft] 100 mg PO DAILY 08/25/21 04/14/22 History Aspirin 81 mg PO DAILY tab 08/26/21 04/11/22 Rx Allergies Allergy/AdvReac Type Severity Reaction Status Date / Time azithromycin Allergy Rapid Verified 04/11/22 11:57 Heart Rate Penicillins AdvReac Swelling Verified 04/11/22 11:57 of legs Surgical - Exam Vital Signs Temp Pulse Resp BP Pulse Ox 98.5 F 88 16 114/77 98 04/14/22 07:06 04/14/22 07:06 04/14/22 07:06 04/14/22 07:06 04/14/22 07:06
--- NOTE | 2022-04-14 08:08 | P.PCN ---
Date of Procedure: 04/14/22 Description of Procedure: PREOPERATIVE DIAGNOSIS: Dysphagia. Gastroesophageal reflux disease Esophageal stricture Esophageal dysmotility POSTOPERATIVE DIAGNOSIS: Dysphagia. Gastroesophageal reflux disease Gastrojejunal stenosis Esophageal dysmotility OPERATION: Esophagogastrojejunoscopy with [employer] 20 mm balloon dilator for gastrojejunal stenosis Esophagogastrojejunoscopy with rigid dilator over the guidewire 51 Fr with dilation of esophageal stenosis/dysmotility SURGEON: Kimmie Bush MD ANESTHESIA: MAC. INDICATIONS: The patient is a 67-year-old female who presents with a history of dysphagia. Benefits and risks of the procedure were described. Informed consent was obtained. DESCRIPTION: The patient was brought into the endoscopy suite and laid in the left lateral decubitus position. After a timeout was confirmed, the procedure was initiated. An Olympus gastroscope was passed into the posterior oropharynx down into the gastric pouch. The scope was entered into the gastric pouch with gastrojejunal stenosis along the gastrojejunal anastomosis. To address her 15 mm g astrojejunal stricture, a 20 mm [employer] balloon was used to dilate. Next using an [place] rigid dilator, a guidewire was placed through the gastroscope. Next the scope was withdrawn. A 51-[place]ian rigid [place] dilator was passed carefully along the posterior oropharynx to 45 cm and left in place for 2-3 minutes stretch. The dilator was withdrawn including the guidewire. The scope was reentered along the posterior oropharynx with no findings of full- thickness tear of the upper esophageal sphincter. No full-thickness injury was encountered. The GI tract was desufflated. The patient tolerated the procedure well. FINDINGS: Gastrojejunal anastomotic stricture without ulceration and stenosis dilated Presbyesophagus with esophageal dysmotility dilated [place] rigid dilator 51-Panamanian completed. RECOMMENDATIONS: Upper endoscopy as needed Plan - Discharge Summary Discharge Rx Participant: No New Discharge Prescriptions: Continue Levothyroxine Sodium [Synthroid] 175 mcg PO DAILY traMADol HCL [Tramadol HCl] 50 mg PO BID PRN PRN Reason: Pain ALPRAZolam [Xanax] 0.5 mg PO HS PRN PRN Reason: Anxiety levETIRAcetam [Keppra] 750 mg PO BID Metoprolol Tartrate [Lopressor] 12.5 mg PO 1300,2200 Cyclobenzaprine [Flexeril] 10 mg PO QID PRN PRN Reason: Muscle Spasm Sertraline HCl [Zoloft] 100 mg PO DAILY Aspirin 81 mg PO DAILY tab Discharge Medication List Levothyroxine Sodium [Synthroid] 175 mcg PO DAILY 02/23/14 [History] traMADol HCL [Tramadol HCl] 50 mg PO BID PRN 10/17/14 [History] ALPRAZolam [Xanax] 0.5 mg PO HS PRN 04/27/18 [History] levETIRAcetam [Keppra] 750 mg PO BID 11/07/20 [History] Metoprolol Tartrate [Lopressor] 12.5 mg PO 1300,2200 12/03/20 [History] Cyclobenzaprine [Flexeril] 10 mg PO QID PRN 08/25/21 [History] Sertraline HCl [Zoloft] 100 mg PO DAILY 08/25/21 [History] Aspirin 81 mg PO DAILY tab 08/26/21 [Rx] Follow up Appointment(s)/Referral(s): Kimmie Bush MD [STAFF PHYSICIAN] - 04/15/22 10:45 am Patient Instructions/Handouts: Esophageal Dilation (DC) Activity/Diet/Wound Care/Special Instructions: Diet as tolerated Discharge Disposition: HOME SELF-CARE
[2022-04-14 08:14] VITALS: BP 113/78; PULSE 70
== END 2022-04-14 08:49 | disposition home or self-care (01) ==
LOC: ORWHC2ENDO 06:29
PROVIDERS: ATTEND Surgery Plastic and Reconstructive Surgery
DX: K22.2 Esophageal obstruction (principal); K21.9 Gastro-esophageal reflux disease without esophagitis; K22.4 Dyskinesia of esophagus; K56.699 Other intestinal obstruction unspecified as to partial versus complete obstruction; I48.91 Unspecified atrial fibrillation; M79.7 Fibromyalgia; E06.3 Autoimmune thyroiditis; G89.29 Other chronic pain; M54.9 Dorsalgia, unspecified; Z90.49 Acquired absence of other specified parts of digestive tract; Z98.84 Bariatric surgery status; Z82.49 Family history of ischemic heart disease and other diseases of the circulatory system; Z80.7 Family history of other malignant neoplasms of lymphoid, hematopoietic and related tissues; Z83.49 Family history of other endocrine, nutritional and metabolic diseases; Z79.890 Hormone replacement therapy; Z79.82 Long term (current) use of aspirin; Z79.899 Other long term (current) drug therapy; Z88.0 Allergy status to penicillin; Z88.3 Allergy status to other anti-infective agents
CPT/HCPCS: 43245; 43249; J2704; J2001; C1726

== ENCOUNTER → 2022-09-23 | Outpatient (CLI) | payer MEDICARE ==
[2022-09-23 13:25] LABS: African American GFR (CKD) >90 (>60 ml/min/1.73 sqM); Blood Urea Nitrogen 22 mg/dL (7-17); Non-African American GFR(CKD) >90 (>60 ml/min/1.73 sqM)
--- NOTE | 2022-09-24 21:07 | CT ---
EXAMINATION TYPE: CT abdomen pelvis w con DATE OF EXAM: 09/23/2022 COMPARISON: 02/09/2022 HISTORY: 67-year-old female K57.92, diverticulitis of intestines, part unspecified, without perforati on or abscess. Stomach pain and burning TECHNIQUE: Contiguous axial scanning of the abdomen and pelvis following administration of 90 ml Isov ue 300 IV contrast. Delayed images through the kidneys and coronal/sagittal reconstructions performe d. CT DLP: 1301 mGycm Automated exposure control for dose reduction was used. FINDINGS: Heart normal size with trace anterior basilar pericardial fluid. Lung bases clear without pleural eff usion. There are postsurgical changes of Marisela-en-Y gastric bypass. No focal liver lesion. Overall degree of intrahepatic biliary ductal dilatation show some improvement . Bile duct now dilated to 1.3 cm versus 1.6 cm, previously. Portal venous system is patent. Cholecys tectomy clips. Adrenal glands, spleen, and pancreas within normal limits. Bilateral extrarenal pelves. Symmetric uptake and excretion of contrast from both kidneys. No dilated small bowel, free fluid, or free air. Numerous scattered nonenlarged mesenteric nodes. Francis e are borderline in size measuring up to 7 mm. Moderate overall stool burden. Mildly redundant sigmoid colon. No pericolonic inflammatory change. Bladder is urine distended. Pelvic phlebolith. Uterus surgically absent. Suspect visualization of the bilateral ovaries. No abnormal fluid collection in the pelvis or pelvic lymphadenopathy. Bones: Mild degenerative change at the hips. Osteitis pubis. Hypertrophic facet arthropathy mid to lo wer lumbar spine. Trace grade 1 anterolisthesis L5-S1. IMPRESSION: 1. MODERATE STOOL BURDEN, POSSIBLE CONSTIPATION. CLINICALLY CORRELATE. 2. IMPROVEMENT IN THE DEGREE OF BILIARY DUCTAL DILATATION COMPARED TO 02/09/2022. THE BILE DUCT CURREN TLY MEASURES 1.3 CM VERSUS 1.6 CM, PREVIOUSLY. PATIENT IS STATUS POST MARISELA-EN-Y GASTRIC BYPASS.
== END | disposition home or self-care (01) ==
LOC: RADCTMAIN 12:42
PROVIDERS: ATTEND Surgery Plastic and Reconstructive Surgery
DX: K83.8 Other specified diseases of biliary tract (principal); K57.92 Diverticulitis of intestine, part unspecified, without perforation or abscess without bleeding; Z98.84 Bariatric surgery status
CPT/HCPCS: 85379; 85652; 82565; 84520; 86140; 74177; 36415; Q9967

== ENCOUNTER → 2022-09-26 | Outpatient (CLI) | payer MEDICARE ==
--- NOTE | 2022-09-26 14:06 | NM ---
EXAMINATION TYPE: NM bone 3 phase DATE OF EXAM: 09/26/2022 COMPARISON: NONE HISTORY: Pain Triple phase bone scintigraphy was performed following the injection of 22.7 mCi Tc 99m MDP. Immedia te images and 5.75 hours post injection images acquired. FINDINGS: There are bilateral photopenic defects compatible with previous surgery. There is symmetric flow to t he knees bilaterally. Uptake surrounding the bilateral knee prostheses is symmetric. IMPRESSION: 1. Symmetric flow and uptake surrounding bilateral knee prostheses. Most likely in the basis of posts urgical change. If high clinical suspicion for infectious etiology correlation with tagged WBC study
== END | disposition home or self-care (01) ==
LOC: RADNMMAIN 07:17
PROVIDERS: ATTEND Orthopaedic Surgery
DX: T84.53XA Infection and inflammatory reaction due to internal right knee prosthesis, initial encounter (principal); M25.561 Pain in right knee; M25.562 Pain in left knee; Z96.651 Presence of right artificial knee joint; Z96.652 Presence of left artificial knee joint
CPT/HCPCS: 78315; A9503

== ENCOUNTER 2022-10-06 07:46 | Day surgery (SDC) | payer MEDICARE ==
[2022-10-03 09:47] VITALS: BMI 33.7
[2022-10-06 08:04] VITALS: TEMP 97.2
[2022-10-06] MEDS ORDERED: PROPOFOL 10 MG/ML 20 ML VIAL IV ONE (08:25)
[2022-10-06] MEDS ORDERED: LIDOCAINE 2% INJ 20 MG/ML (2 ML VIAL) ONE (08:25)
--- NOTE | 2022-10-06 08:26 | P.GSHP ---
History of Present Illness H&P Date: 10/06/22 CHIEF COMPLAINT: GERD HISTORY OF PRESENT ILLNESS: The patient is a 67-year-old female who presents reports gastroesophageal reflux disease. Upper endoscopy was offered for further evaluation and management. PAST MEDICAL HISTORY: Please see list. PAST SURGICAL HISTORY: Please see list. MEDICATIONS: Please see list. ALLERGIES: Please see list. SOCIAL HISTORY: No illicit drug use FAMILY HISTORY: No reports of Crohn disease or ulcerative colitis. REVIEW OF ORGAN SYSTEMS: CONSTITUTIONAL: No reports of fevers or chills. GI: Denies any blood in stools or constipation. PHYSICAL EXAM: VITAL SIGNS: Stable GENERAL: Well-developed and pleasant in no acute distress. HEENT: No scleral icterus. Extraocular movements grossly intact. Moist buccal mucosa. NECK: Supple without lymphadenopathy. CHEST: Unlabored respirations. Equal bilateral excursions. CARDIOVASCULAR: Regular rate and rhythm. Distal 2+ pulses. ABDOMEN: Soft, nondistended. MUSCULOSKELETAL: No clubbing, cyanosis, or edema. ASSESSMENT: 1. Gastroesophageal reflux disease PLAN: 1. 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 Colonoscopy, EGD1/, Hx.gastric bypass with esophagus repair (March 2015), HIATAL HERNIA, VENTRAL HERNIA Past Anesthesia/Blood Transfusion Reactions: No Reported Reaction Smoking Status: Never smoker - Past Family History Father Family Medical History: Coronary Artery Disease (CAD) Mother Family Medical History: Cancer Additional Family Medical History / Comment(s): NON-HODGKINS LYMPHOMA Brother(s) Family Medical History: Myocardial Infarction ([place]) Sister(s) Family Medical History: Myocardial Infarction ([place]), Thyroid Disorder Medications and Allergies Home Medications Medication Instructions Recorded Confirmed Type Levothyroxine Sodium [Synthroid] 175 mcg PO DAILY 02/23/14 10/06/22 History traMADol HCL 50 mg PO BID PRN 10/17/14 10/06/22 History ALPRAZolam [Xanax] 0.5 mg PO HS PRN 04/27/18 10/03/22 History levETIRAcetam [Keppra] 750 mg PO BID 11/07/20 10/03/22 History Metoprolol Tartrate [Lopressor] 12.5 mg PO 1600 12/03/20 10/03/22 History Cyclobenzaprine [Flexeril] 10 mg PO QID PRN 08/25/21 10/03/22 History Sertraline HCl [Zoloft] 100 mg PO DAILY 08/25/21 10/03/22 History Aspirin 81 mg PO DAILY tab 08/26/21 10/03/22 Rx Allergies Allergy/AdvReac Type Severity Reaction Status Date / Time azithromycin Allergy Rapid Verified 10/06/22 07:59 Heart Rate Penicillins AdvReac Swelling Verified 10/03/22 09:41 of legs Surgical - Exam Vital Signs Temp Pulse Resp BP Pulse Ox 97.2 F L 99 18 114/77 99 10/06/22 08:03 10/06/22 08:03 10/06/22 08:03 10/06/22 08:03 10/06/22 08:03
--- NOTE | 2022-10-06 08:37 | P.PCN ---
Date of Procedure: 10/06/22 Description of Procedure: PREOPERATIVE DIAGNOSES: 1. Epigastric abdominal pain. 2. Gastroesophageal reflux disease 3. History of gastric bypass. 4. History of gastric ulcers. POSTOPERATIVE DIAGNOSES: 1. Epigastric abdominal pain. 2. Gastroesophageal reflux disease 3. History of gastric bypass. 4. History of gastric ulcers. PROCEDURE PERFORMED: Esophagogastrojejunoscopy. SURGEON: Kimmie Bush MD ANESTHESIA: MAC. INDICATIONS: The patient is a 67-year-old female with prior history of Marisela-en-Y gastric bypass gastroesophageal reflux disease and ulcers. She presents with epigastric abdominal pain. With her history of Marisela-en-Y gastric bypass, upper endoscopy was offered for further evaluation and management. DESCRIPTION: Patient was brought to the endoscopy suite and laid in the left lateral decubitus position. After adequate IV sedation, a bite block was placed. An Olympus gastroscope was passed along the posterior oropharynx down to the distal esophagus where the squamocolumnar junction was found at approximately 38 cm from the incisors. His anastomosis was found at 38 cm, consistent with approximately 4 cm gastric pouch. The scope was advanced 60 cm from the incisors. No evidence of foreign body was found. No evidence of active gastrojejunal ulcerations were encountered. The GI tract was desufflated. The patient tolerated the procedure well. FINDINGS: 1. No acute gastrojejunal ulceration. 2. No foreign body found along the anastomosis. 3. Diaphragmatic hiatal hernia 3 cm PLAN: 1. Recommend upper endoscopy as needed. 2. May benefit from additional studies with history of epigastric abdominal pain such as upper GI barium study. Plan - Discharge Summary New Discharge Prescriptions: Continue Levothyroxine Sodium [Synthroid] 175 mcg PO DAILY traMADol HCL 50 mg PO BID PRN PRN Reason: Pain ALPRAZolam [Xanax] 0.5 mg PO HS PRN PRN Reason: Anxiety levETIRAcetam [Keppra] 750 mg PO BID Metoprolol Tartrate [Lopressor] 12.5 mg PO 1600 Cyclobenzaprine [Flexeril] 10 mg PO QID PRN PRN Reason: Muscle Spasm Sertraline HCl [Zoloft] 100 mg PO DAILY Aspirin 81 mg PO DAILY tab Discharge Medication List Levothyroxine Sodium [Synthroid] 175 mcg PO DAILY 02/23/14 [History] traMADol HCL 50 mg PO BID PRN 10/17/14 [History] ALPRAZolam [Xanax] 0.5 mg PO HS PRN 04/27/18 [History] levETIRAcetam [Keppra] 750 mg PO BID 11/07/20 [History] Metoprolol Tartrate [Lopressor] 12.5 mg PO 1600 12/03/20 [History] Cyclobenzaprine [Flexeril] 10 mg PO QID PRN 08/25/21 [History] Sertraline HCl [Zoloft] 100 mg PO DAILY 08/25/21 [History] Aspirin 81 mg PO DAILY tab 08/26/21 [Rx] Follow up Appointment(s)/Referral(s): Kimmie Bush MD [STAFF PHYSICIAN] - 10/21/22 Patient Instructions/Handouts: Esophageal Dilation (DC) Discharge Disposition: HOME SELF-CARE
[2022-10-06 08:53] VITALS: BP 108/75; PULSE 72; RESP 16
== END 2022-10-06 09:25 | disposition home or self-care (01) ==
LOC: ORWHC2ENDO 07:46
PROVIDERS: ATTEND Surgery Plastic and Reconstructive Surgery
DX: K21.9 Gastro-esophageal reflux disease without esophagitis (principal); K44.9 Diaphragmatic hernia without obstruction or gangrene; Z98.0 Intestinal bypass and anastomosis status; Z98.84 Bariatric surgery status; Z87.11 Personal history of peptic ulcer disease; I48.91 Unspecified atrial fibrillation; Z83.49 Family history of other endocrine, nutritional and metabolic diseases; M79.7 Fibromyalgia; M62.9 Disorder of muscle, unspecified; E06.3 Autoimmune thyroiditis; Z79.891 Long term (current) use of opiate analgesic; Z79.899 Other long term (current) drug therapy; Z79.890 Hormone replacement therapy; Z95.5 Presence of coronary angioplasty implant and graft; Z90.49 Acquired absence of other specified parts of digestive tract; Z98.51 Tubal ligation status; Z98.890 Other specified postprocedural states; Z96.653 Presence of artificial knee joint, bilateral; Z90.79 Acquired absence of other genital organ(s); Z82.49 Family history of ischemic heart disease and other diseases of the circulatory system; Z80.7 Family history of other malignant neoplasms of lymphoid, hematopoietic and related tissues; Z79.82 Long term (current) use of aspirin; Z79.01 Long term (current) use of anticoagulants; Z79.1 Long term (current) use of non-steroidal anti-inflammatories (NSAID); Z88.0 Allergy status to penicillin; Z88.1 Allergy status to other antibiotic agents
CPT/HCPCS: 43235; J2704; J2001; 43239

== ENCOUNTER → 2022-10-16 | Outpatient (CLI) | payer MEDICARE ==
[2022-10-16 16:58] LABS: Appearance,Urine Clear (Clear); Bacteria,Urine Rare /hpf; Bilirubin,Urine Negative (Negative); Blood,Urine Negative (Negative); Color,Urine Light Yellow; Glucose,Urine (UA) Negative (Negative); Ketones,Urine Negative (Negative); Leukocyte Esterase,Urine Moderate (Negative); Mucus,Urine Rare /hpf; Nitrite,Urine Negative (Negative); Protein,Urine Negative (Negative); RBC,Urine 1 /hpf (0-5); Specific Gravity,Urine 1.007 (1.001-1.035); Squamous Epithelial Cell,Urine 1 /hpf (0-4); Urobilinogen,Urine <2.0 mg/dL (<2.0); WBC,Urine 2 /hpf (0-5)
[2022-10-16 17:34] LABS: INR 0.9 (<1.2); Prothrombin Time 9.5 sec (9.0-12.0)
[2022-10-16 22:47] LABS: African American GFR (CKD) 103.2 (60.0-200.0); Albumin 4.3 g/dL (3.8-4.9); Albumin/Globulin Ratio 2.26 (1.60-3.17); Anion Gap 9.1 mmol/L (10.00-18.00); BUN/Creat Ratio 29.86 Ratio (12.00-20.00); Blood Urea Nitrogen 20.9 mg/dL (9.0-27.0); Calcium 9.2 mg/dL (8.7-10.3); Carbon Dioxide 27.9 mmol/L (20.0-27.5); Globulin 1.9 g/dL (1.6-3.3); Potassium 4.1 mmol/L (3.5-5.5); Total Bilirubin 0.5 mg/dL (0.30-1.20); Total Protein 6.2 g/dL (6.2-8.2)
== END | disposition home or self-care (01) ==
LOC: LABWHC1 15:51
PROVIDERS: ATTEND Orthopaedic Surgery
DX: Z01.812 Encounter for preprocedural laboratory examination (principal); M17.12 Unilateral primary osteoarthritis, left knee
CPT/HCPCS: 36415; 80053; 81001; 85610; 85730; 87070

== ENCOUNTER → 2023-03-24 | Outpatient (CLI) | payer MEDICARE ==
[2023-03-24 16:30] LABS: INR 0.9 (<1.2); Partial Thromboplastin Time 24.3 sec (22.0-30.0); Prothrombin Time 9.8 sec (9.0-12.0)
[2023-03-24 20:14] LABS: ALT 64 U/L; AST 47 U/L; Albumin 3.8 d/dL; Albumin/Globulin Ratio 2.24 Ratio; Alkaline Phosphatase 149 U/L; BUN/Creat Ratio 28.71 Ratio; Blood Urea Nitrogen 20.1 mg/dL; Calcium 9.3 mg/dL; Carbon Dioxide 27.8 mmol/L; Chloride 96 mmol/L; Globulin 1.7 d/dL; Glucose 105 mg/dL; Potassium 4.7 mmol/L; Sodium 131 mmol/L; Total Bilirubin 0.3 mg/dL; Total Protein 5.5 d/dL
[2023-03-25 01:28] LABS: HCT 33.4 %; HGB 10.7 d/dL; MCH 28.1 pg; MCV 87.7 FL; NRBC Per 100 WBC 0 X 10*3/uL; Platelet Count 246 X 10*3/uL; RBC 3.81 X 10*6/uL
== END | disposition home or self-care (01) ==
LOC: LABWHC1 14:44
PROVIDERS: ATTEND Orthopaedic Surgery
DX: Z01.818 Encounter for other preprocedural examination (principal); M25.561 Pain in right knee; Z47.1 Aftercare following joint replacement surgery
CPT/HCPCS: 80053; 85027; 85610; 85730; 87070

== ENCOUNTER → 2023-04-08 | Outpatient (CLI) | payer MEDICARE ==
[2023-04-08 15:57] LABS: INR 0.9 (<1.2); Partial Thromboplastin Time 22.2 sec (22.0-30.0); Prothrombin Time 9.5 sec (9.0-12.0)
[2023-04-08 17:11] LABS: Magnesium 2.1 mg/dL (1.6-2.3); Phosphorus 3.7 mg/dL (2.5-4.5)
[2023-04-09 02:31] LABS: Prealbumin 21.2 mg/dL (18.0-42.0)
[2023-04-09 02:47] LABS: % Iron Saturation 19.37 (12.00-45.00); Chol/HDL Ratio 3.17 Ratio; Ferritin 75.9 ng/mL (10.0-291.0); Iron 80 UG/DL (50-170); LDL Cholesterol,Calculated 125.8 mg/dL (0.0-131.0); Total Iron Binding Capacity 413 UG/DL (228-460)
[2023-04-09 12:21] LABS: Zinc, Serum 53 ug/dL (60-130)
[2023-04-10 07:34] LABS: Vit B1(Thiamine) 77 ug/L (38-122)
== END | disposition home or self-care (01) ==
LOC: LABWHC1 14:10
PROVIDERS: ATTEND Surgery Plastic and Reconstructive Surgery
DX: E66.01 Morbid (severe) obesity due to excess calories (principal); D50.8 Other iron deficiency anemias; K91.2 Postsurgical malabsorption, not elsewhere classified; E44.0 Moderate protein-calorie malnutrition; E45 Retarded development following protein-calorie malnutrition; E55.9 Vitamin D deficiency, unspecified; K74.1 Hepatic sclerosis; K76.9 Liver disease, unspecified; N19 Unspecified kidney failure; T56.894A Toxic effect of other metals, undetermined, initial encounter
CPT/HCPCS: 36415; 80061; 82306; 82525; 82607; 82728; 82746; 83036; 83540; 83550; 83735; 83970; 84100; 84134; 84255; 84425; 84443; 84590; 84630; 85610; 85730

== ENCOUNTER → 2023-06-10 | Outpatient (CLI) | payer MEDICARE ==
[2023-06-10 15:28] VITALS: BP 100/67; PULSE 77; TEMP 97.5; BMI 33.2
--- NOTE | 2023-06-10 16:09 | P.BASOAP ---
Subjective Progress Note Date: 06/10/23 She comes in for severe constipation. She is doing well with lactulose. pre-op diet described. Antibiotics to be given. Objective - Vital Signs Vital signs: Vital Signs Temp 97.5 F L 06/10/23 15:24 Pulse 77 06/10/23 15:24 Resp BP 100/67 06/10/23 15:24 Pulse Ox FiO2 Intake & Output 06/09/23 06/10/23 06/10/23 18:59 06:59 18:59 Weight 77.111 kg Assessment/Plan Plan: Date: 06/10/23 Initial Weight: 99.337 kg Initial BMI: 42.7 Current Weight: 77.111 kg Current BMI: 33.2 Type of Surgery: Total Volume in Band: Previous Volume: Volume Removed: Volume Added: Band Size:
== END ==
LOC: BARWHC3 14:37
PROVIDERS: ATTEND Surgery Plastic and Reconstructive Surgery
DX: Z53.9 Procedure and treatment not carried out, unspecified reason (principal)
CPT/HCPCS: 99211

== ENCOUNTER → 2023-06-10 | Outpatient (CLI) | payer MEDICARE ==
[2023-06-10 19:50] LABS: Basophils # (A) 0.05 X 10*3/uL (0.00-0.10); Basophils % (A) 0.8 %; Eosinophils # (A) 0.01 X 10*3/uL (0.04-0.35); Eosinophils % (A) 0.2 %; HCT 35.5 % (37.2-46.3); HGB 11.6 d/dL (12.0-15.0); Lymphocytes % (A) 27.6 %; MCH 30.2 pg (27.0-32.0); MCHC 32.7 d/dL (32.0-37.0); MCV 92.4 FL (80.0-97.0); Mean Platelet Volume 9.3 FL (9.5-12.2); Monocytes # (A) 0.54 X 10*3/uL (0.20-1.00); Monocytes % (A) 8.8 %; NRBC Per 100 WBC 0 X 10*3/uL (0.00-0.01); Neutrophils # (A) 3.81 X 10*3/uL (1.80-7.70); Neutrophils % (A) 61.9 %; Platelet Count 264 X 10*3/uL (140-440); RBC 3.84 X 10*6/uL (4.10-5.20); RDW 13.9 % (11.5-14.5); WBC 6.15 X 10*3/uL (4.50-10.00)
[2023-06-10 20:05] LABS: ALT 36 U/L (8-44); AST 31 U/L (13-35); Albumin 4.1 d/dL (3.8-4.9); Albumin/Globulin Ratio 2.28 Ratio (1.60-3.17); Alkaline Phosphatase 141 U/L (41-126); BUN/Creat Ratio 24.83 Ratio (12.00-20.00); Blood Urea Nitrogen 14.9 mg/dL (9.0-27.0); Calcium 9.6 mg/dL (8.7-10.3); Carbon Dioxide 28.7 mmol/L (21.6-31.8); Chloride 98 mmol/L (96-109); Globulin 1.8 d/dL (1.6-3.3); Glucose 93 mg/dL (70-110); Potassium 4.6 mmol/L (3.5-5.5); Sodium 134 mmol/L (135-145); Total Bilirubin 0.4 mg/dL (0.3-1.2); Total Protein 5.9 d/dL (6.2-8.2)
== END | disposition home or self-care (01) ==
LOC: LABPAT 16:22
PROVIDERS: ATTEND Surgery Plastic and Reconstructive Surgery
DX: Z01.812 Encounter for preprocedural laboratory examination (principal)
CPT/HCPCS: 36415; 80053; 85025

== ENCOUNTER → 2023-07-09 | Outpatient (CLI) | payer MEDICARE | END | disposition home or self-care (01) | LOC: LABWHC1 16:25 | PROVIDERS: ATTEND Orthopaedic Surgery | DX: T84.84XD Pain due to internal orthopedic prosthetic devices, implants and grafts, subsequent encounter (principal); Y79.2 Prosthetic and other implants, materials and accessory orthopedic devices associated with adverse incidents; Z96.651 Presence of right artificial knee joint | CPT/HCPCS: 36415; 85379; 85652; 86140 ==

== ENCOUNTER → 2023-07-09 | Outpatient (CLI) | payer MEDICARE ==
--- NOTE | 2023-07-10 09:18 | MM ---
Reason for Exam: Screening (asymptomatic). Last mammogram was performed 1 year(s) and 5 month(s) ago. Patient History: Menarche at age 11. First Full-Term at age 19. Hysterectomy at age 26. Postmenopausal. Currently using Estrogen, beginning at age 58 for 1 year. 11/28/1998, Benign Stereotactic Core Biopsy on the left side. Risk Values: Kimberly 5 year model risk: 1.8%. NCI Lifetime model risk: 5.6%. Prior Study Comparison: 07/14/2018 Bilateral Screening Mammogram, [facility]. 01/28/2022 Bilateral Screening Mammogram, [facility]. 01/31/2022 Right Diagnostic Mammogram, [facility]. Tissue Density: The breast tissue is heterogeneously dense. This may lower the sensitivity of mammography. Findings: Analyzed By CAD. There is no suspicious group of microcalcifications or new suspicious mass in either breast. Stable benign-appearing calcifications. Surgical clip in the left upper outer quadrant stable. Overall Assessment: Benign, BI-RAD 2 Management: Screening Mammogram of both breasts in 1 year. . Patient should continue monthly self-breast exams. A clinical breast exam by your physician is recommended on an annual basis. This exam should not preclude additional follow-up of suspicious palpable abnormalities. Note on Kimberly scores and lifetime risk: 1. A Kimberly score greater than 3% is considered moderate risk. If this is the case, consider specialist referral to assess eligibility for a risk reducing agent. 2. If overall lifetime risk for the development of breast cancer is 20% or higher, the patient may qualify for future screening with alternating mammogram and breast MRI. Electronically signed and approved by: Miguel A Frankel M.D. Radiologis
== END | disposition home or self-care (01) ==
LOC: RADMAMWWP 16:27
PROVIDERS: ATTEND Obstetrics & Gynecology
DX: Z12.31 Encounter for screening mammogram for malignant neoplasm of breast (principal); Z78.0 Asymptomatic menopausal state
CPT/HCPCS: 77063; 77067

== ENCOUNTER → 2023-08-17 | Outpatient (CLI) | payer MEDICARE ==
[2023-08-17 15:05] LABS: INR 0.9 (<1.2); Partial Thromboplastin Time 25.4 sec (22.0-30.0); Prothrombin Time 10.1 sec (10.0-12.5)
[2023-08-17 21:03] LABS: Appearance,Urine Clear (Clear); Bilirubin,Urine Negative (Negative); Blood,Urine Trace (Negative); Color,Urine Yellow (Yellow); Ketones,Urine Negative (Negative); Nitrite,Urine Positive (Negative); PH, Urine 5.5; Specific Gravity,Urine 1.006 (1.001-1.030); Urobilinogen,Urine 0.2 E.U./DL
[2023-08-17 21:20] LABS: Bacteria,Urine 4+ (None Seen)
[2023-08-17 22:03] LABS: HCT 35.5 % (37.2-46.3); HGB 11.6 d/dL (12.0-15.0); MCH 30.4 pg (27.0-32.0); MCHC 32.7 d/dL (32.0-37.0); MCV 92.9 FL (80.0-97.0); Mean Platelet Volume 9.6 FL (9.5-12.2); NRBC Per 100 WBC 0 X 10*3/uL (0.00-0.01); Platelet Count 287 X 10*3/uL (140-440); RBC 3.82 X 10*6/uL (4.10-5.20); RDW 13.1 % (11.5-14.5); WBC 7.47 X 10*3/uL (4.50-10.00)
[2023-08-18 07:55] LABS: ALT 35 U/L (8-44); AST 27 U/L (13-35); Albumin 3.8 d/dL (3.8-4.9); Alkaline Phosphatase 151 U/L (41-126); Blood Urea Nitrogen 16.6 mg/dL (9.0-27.0); Carbon Dioxide 27.7 mmol/L (21.6-31.8); Chloride 100 mmol/L (96-109); Globulin 1.9 d/dL (1.6-3.3); Glucose 98 mg/dL (70-110); Sodium 135 mmol/L (135-145); Total Bilirubin 0.3 mg/dL (0.3-1.2); Total Protein 5.7 d/dL (6.2-8.2)
== END | disposition home or self-care (01) ==
LOC: LABWHC1 13:05
PROVIDERS: ATTEND Orthopaedic Surgery
DX: Z01.812 Encounter for preprocedural laboratory examination (principal); M17.11 Unilateral primary osteoarthritis, right knee
CPT/HCPCS: 36415; 80053; 81001; 85027; 85610; 85730; 87070

== ENCOUNTER 2023-08-28 11:15 | Inpatient (IN) | payer MEDICARE ==
[~2023-08-28 11:15] MED LIST changes: +ACETAMINOPHEN TAB 500 MG TAB PO PRN; +DEXAMETHASONE SOD PHOSPHATE 10 MG/ML 1 ML VIAL IV PRN; +DOCUSATE 100 MG CAP PO PRN; +FAMOTIDINE 20 MG/2 ML VIAL IVP PRN; +HYDROmorphone 0.5 MG/0.5 ML SYRINGE IVP PRN; +KETOROLAC 15 MG/ML 1 ML VIAL IVP PRN; -LACTATED RINGERS 1,000 ML IV SCH; -LIDOCAINE 1% (10MG/ML) FOR IV START INTRADERMA PRN; +MIDAZOLAM 2 MG/2 ML VIAL IV PRN; +ONDANSETRON 4 MG/2 ML VIAL IVP PRN; +TRANEXAMIC 1,000 MG/100ML-NACL 1,000 MG in SALINE 1 100ML.BAG IV PRN; +TRANEXAMIC 1,000 MG/100ML-NACL 1,000 MG in SALINE 1 100ML.BAG IVPB PRN; +oxyCODONE ER 10 MG TAB.ER.12H PO PRN
[2023-08-28] MEDS: LACTATED RINGERS 1,000 ML IV SCH (12:10)
--- NOTE | 2023-08-28 13:52 | P.ANPRN ---
Procedure Note - Anesthesia - Nerve Block Performed Right Adductor Canal Single Time Out Performed: Yes Date of Procedure: 08/28/23 Procedure Start Time: : Procedure Stop Time: :29 Location of Patient: PreOp Indication: Acute Post-Operative Pain, Requested by Surgeon Sedation Type: Sedate with meaningful contact maintained Preparation: Sterile Prep Position: Supine Needle Types: Pajunk Needle Gauge: 21 Ultrasound used to visualize needle placement: Yes Ultrasound used to observe medication spread: Yes Injectate: 0.5% Ropivacaine (see comment for volume) (15 ml + 15 ml NS + 4mg Dexamethasone) Blood Aspirated: No Pain Paresthesia on Injection Noted: No Resistance on Injection: Normal Image Stored and Saved: Yes Events: Uneventful and Well Tolerated
--- NOTE | 2023-08-28 13:54 | P.ANPRN ---
Procedure Note - Anesthesia - Nerve Block Performed Right iPack Single Time Out Performed: Yes Date of Procedure: 08/28/23 Procedure Start Time: 13:30 Procedure Stop Time: 13:36 Location of Patient: PreOp Indication: Acute Post-Operative Pain, Requested by Surgeon Sedation Type: Sedate with meaningful contact maintained Preparation: Sterile Dressing Position: Left Lateral Needle Types: Pajunk Needle Gauge: 21 Ultrasound used to visualize needle placement: Yes Ultrasound used to observe medication spread: Yes Injectate: 0.5% Ropivacaine (see comment for volume) (15 ml + 15 ML NS + 4 mg Dexamethasone) Blood Aspirated: No Pain Paresthesia on Injection Noted: No Resistance on Injection: Normal Image Stored and Saved: Yes Events: Uneventful and Well Tolerated
[2023-08-28] MEDS: ROPIVACAINE/EPI/CLONIDINE/KET 50 ML SYRINGE MISCELLANE PRN ×2 (14:57→16:52)
[2023-08-28] MEDS ORDERED: VANCOMYCIN 1,000 MG VIAL MISCELLANE ONE (16:43)
[2023-08-28] MEDS ORDERED: TOBRAMYCIN SULFATE 1.2 GM VIAL MISCELLANE ONE (16:44)
[2023-08-28] MEDS ORDERED: hydrOXYzine pamoate 25 MG CAP PO PRN (18:05)
[2023-08-28] MEDS ORDERED: MAGNESIUM HYDROXIDE 2,400 MG/30 ML CUP PO PRN (18:05)
[2023-08-28] MEDS ORDERED: ONDANSETRON 4 MG/2 ML VIAL IVP PRN (18:05)
[2023-08-28] MEDS ORDERED: NALOXONE 0.4 MG/ML 1 ML VIAL IV PRN (18:05)
[2023-08-28] MEDS ORDERED: bisacodyL 10 MG SUPP RECTAL PRN (18:05)
[2023-08-28] MEDS ORDERED: HYDROcodone/APAP 5-325MG 1 EACH TAB PO PRN (18:05)
[2023-08-28] MEDS ORDERED: HYDROmorphone 0.5 MG/0.5 ML SYRINGE IVP PRN (18:05)
--- NOTE | 2023-08-28 18:28 | P.OP ---
Date of Procedure: 08/28/23 Preoperative Diagnosis: 1. 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 BMI 33.3 Postoperative Diagnosis: Same Procedure(s) Performed: 1. Revision right total knee arthroplasty, femoral and tibial components 2. Application of negative pressure incisional wound VAC right knee, less than 50 cm, incision measuring 20 cm Modifier 22 for increased procedural complexity: Justification: This operation required significantly more time, work, and procedural complexity than a standard primary or revision total joint arthroplasty. Specifically the prior traumatic changes and or surgical procedure left a significantly altered surgical field with resultant scar tissue, adhesions, and altered anatomy that required a longer and more difficult and complex surgical dissection. This patient required: Extensile exposure requiring meticulous and extensive debridement due to prior failed surgery and contractures Technically demanding removal of prior hardware Significantly prolonged operative time Increased BMI 33.3 and challenging body habitus All of the above result in a physically and mentally challenging operative procedure that in my professional opinion necessitates a 30% increase above standard the schedule Implants: 1. Jessica Triathlon TS Femur Size #1 with [id number] cemented stem and 5-mm distal augments medially and laterally 2. Darby Triathlon [place] Tibial Base Size #2 with [id number] cemented stem 3. Jessica Triathlon TS poly Size #2, 16-mm Anesthesia: DAMASO, regional Surgeon: Noble Saunders Estimated Blood Loss (ml): 300 IV fluids (ml): 1,600 Urine output (ml): 250 Pathology: other (Multiple cultures) Condition: stable Disposition: PACU Indications for Procedure: The patient is a very pleasant 68-year-old female who had bilateral knee replacements by Dr. Lobo over a decade ago. She went on to develop global instability and catastrophic polyethylene wear bilaterally. She underwent a left revision by myself previously and did well. She presented to discuss revision of her right total knee replacement. Prior to surgery her knee was aspirated and the results showed 25 nucleated cells with 2% PMNs. Her cultures were negative. Her ESR and CRP were normal. We discussed proceeding with an aseptic revision. I discussed the potential risks and complications at length and gave them ample time to ask questions. Risks discussed included: risks from anesthesia, superficial site surgical infection, acute and/or chronic periprosthetic joint infection, delayed wound healing, drainage, wound necrosis, instability, stiffness, stiffness requiring manipulation and/or revision surgery, damage to local blood vessels or nerves, aseptic loosening of the implants, extensor mechanism issues including disruption, patellar maltracking, avascular necrosis etc., continued or worsened knee pain, generalized dissatisfaction with surgical outcome, need for additional revision surgery, an inability to regain preinjury level of function, DVT, PE, other medical complications, and possibly loss of life or limb. The patient voiced their understanding that while these are the most common complications other less common complications are possible. They provided both their verbal and written consent to go forward with surgery. Operative Findings: With the patient under anesthesia there was global instability of the knee. There is catastrophic polyethylene wear with complete loss of the medial polyethylene liner. 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 There was clear synovial fluid no sign of purulence or deep infection. Description of Procedure: The patient was identified in preoperative holding and the correct right leg was marked with my initials. I reviewed the consent form with the patient and her and all questions were answered. The patient was given a block by anesthesia. She was then brought back to the operating room. She was positioned on the OR table where general anesthetic, preoperative antibiotics, and tranexamic acid were given. A tourniquet was applied to the proximal aspect of the right leg. With the patient under anesthesia I performed an exam under anesthesia and the patient had global instability in extension, mid flexion, and flexion. The contralateral lower extremity was secured to the OR table with foam and tape. The right leg was positioned for surgery and nonsterile drapes were applied. A presurgical scrub was performed using a chlorhexidine scrub brush. The right leg was then prepped and draped in the standard sterile fashion. Prior to starting surgery timeout was performed identifying the correct patient, operative extremity, and procedure. The patient's leg was then elevated, exsanguinated with an Esmarch bandage, and the tourniquet was inflated to 275 mmHg. I began by outlining the prior scar over the anterior aspect of the knee. The incision was made with a scalpel and extended 1 cm proximally and distally to identify normal tissue planes. Dissection was carried down carefully to the subcutaneous tissue to the first fascial layer which was sharply incised. I then elevated medial and lateral subfascial flaps. A standard medial parapatellar arthrotomy was performed. There is a moderate amount of clear synovial fluid. On inspection of the intra-articular capsule there was diffuse signs of metallosis. The patient had abundant adhesions and poor bone quality which made dissection and exposure exceedingly difficult. I carefully developed the gutters down to the intermuscular septum both medially and laterally. There is no sign of infection but multiple tissue specimens were sent for culture. Both the femur and tibia appeared to be well fixed. The locking padding for the polyethylene liner was carefully removed followed by the polyethylene liner. On inspection there was catastrophic polyethylene wear medially. There were also multiple loose pieces of polyethylene within the joint capsule. With the polyethylene liner removed I exposed the femoral component. The patellar button appeared to be stable. Using both a reciprocating and sagittal saw ID bonded the interface between the cement and the implant. With the knee flexed I gently tapped the femoral implant with a bone tamp and mallet easily dislodging it from the femur. There was minimal bone loss. Attention was then turned to the tibia. I circumferentially exposed around the posterior medial tibia area retractors were placed fully exposing the tibial baseplate. Using a combination of a sagittal and reciprocating saw I develop the interface between the implant cement. The knee was brought into extension and a bone tamp was used to carefully remove the tibial baseplate from the tibia. There was again minimal bone loss. Using a quarter-inch osteotome I scored and removed all remaining cement within the tibia. Attention was first turned to the tibia. The patient was noted to have severe osteopenia. The tibia was sized to a size 2 baseplate. Using sequential reaming I gained access to the tibial canal and reamed in 1 mm increments until a a 14 mm reamer felt stable. A cutting guide was placed over the intramedullary reamer and a freshen up cut was made of the tibia perpendicular to the intramedullary reamer. We then determined our rotation pinned the baseplate and punch the keel. A trial tibial baseplate with a 100 mm stem was placed in the tibial canal. Attention was then turned to the femur. Sized the femur to a size 1. Entrance to the canal was gained and then I sequentially reamed by hand in 1 mm increments until a 14 mm reamer felt stable. The cutting guide was placed over the intramedullary reamer and a distal femoral cut was made. We then placed the cutting block over the intramedullary guide and matched the rotation to the epicondylar access. An anterior, posterior, and chamfer cuts were made. I then cut for the box. Implants were trialed until the knee had full extension and flexion and felt stable throughout the arc of motion. So satisfied with the balance and motion of the knee all trial implants were removed. The patient was noted to have extremely poor bone quality of both the femur and tibia. Due to the small size of both the femur and tibia and poor bone quality I elected not to use cone metaphyseal fixation. I then placed cement restrictors into the tibia and femur. The wound was thoroughly irrigated. I cemented the implants in stages. Using a cement gun cement was pressurized into the tibia followed by placement of the final tibial stem and baseplate. This was held until the cement had hardened. Cement was then pressurized into the femur using a cement gun. The femoral component and stem were placed and held in extension with a trial polyethylene liner until the cement had hardened. Once the cement had hardened I trialed polyethylene liners until I was happy with both the range of motion and balance. A final polyethylene liner was dispensed and engaged the locking mechanism of the tibial baseplate. The tourniquet was let down and the patella tracked midline. The wound was thoroughly irrigated with a dilute Betadine rinse, a chlorhexidine rinse and 3 L of sterile saline using pulsatile lavage. Local anesthetic was infiltrated into the capsule and extensor mechanism. 2 g of vancomycin powder and 1.2 g of tobramycin powder were placed within the wound. A deep drain was placed. The arthrotomy was closed first with interrupted Vicryl sutures follow ed by running barbed stitch. The wound was then closed in layers using monofilament barbed sutures and Monocryl for the skin. The skin incision was reinforced with 3-0 nylon horizontal mattress sutures. An incisional wound VAC was then placed over the incision measuring 20 cm. A drain sponge and dressing were applied. The drapes were taken down carefully. Following removal of the drapes the leg fully extended and flexed 120. It felt stable throughout the arc of motion. The patient was then extubated, transferred from the OR table to a rney, and brought to recovery having tolerated the procedure well. Plan: The patient can weight-bear as tolerated on her right lower extremity. She will receive 2 doses of postoperative Ancef and will then be discharged home on doxycycline 100 mg twice a day for 6 weeks. I have a low clinical suspicion for infection but we will follow her cultures. Internal medicine has been consulted for perioperative medical management. I anticipate discharge home on postoperative day #2 or 3 once she has passed therapy and her pain is controlled
[2023-08-28] MEDS ORDERED: HYDROmorphone 0.5 MG/0.5 ML SYRINGE IVP ONE (18:50)
[2023-08-28] MEDS ORDERED: ONDANSETRON 4 MG/2 ML VIAL IVP ONE (18:50)
--- NOTE | 2023-08-28 19:01 | XR ---
EXAMINATION TYPE: XR knee limited RT DATE OF EXAM: 08/28/2023 6:45 PM CLINICAL INDICATION:Female, 68 years old with history of Evaluation for Postop abnormality and alignm ent; [facility] COMPARISON: None. TECHNIQUE: Frontal and crosstable lateral views of the right knee were obtained postoperatively. FINDINGS: Bones appear somewhat demineralized. There is a total knee arthroplasty in place, appears i ntact and normally aligned. No unusual perihardware lucency or fracture identified. Surgical drain pr ojects in the medial soft tissues. There may be a wound VAC at the anterior skin surface in the upper leg. There is soft tissue swelling and bubbles of soft tissue gas about the knee, not unexpected pos toperative. IMPRESSION: Postoperative right knee. Total knee arthroplasty in place. No evidence of complication.
[2023-08-28] MEDS: SODIUM CHLORIDE 0.9% 1,000 ML IV SCH (20:03)
[2023-08-28] MEDS: HYDROcodone/APAP 10-325MG 1 EACH TAB PO PRN (20:18)
[2023-08-28] MEDS: SENNOSIDES-DOCUSATE SODIUM 1 EACH TAB PO SCH (20:19)
[2023-08-28] MEDS: ASPIRIN 81 MG PO SCH (20:19)
[2023-08-29] MEDS: HYDROcodone/APAP 10-325MG 1 EACH TAB PO PRN ×4 (02:18→22:23)
[2023-08-29] MEDS: SODIUM CHLORIDE 0.9% 1,000 ML IV SCH ×2 (02:21→13:35)
[2023-08-29] MEDS: LACTATED RINGERS 1,000 ML IV SCH (05:38)
[2023-08-29] MEDS: ASPIRIN 81 MG PO SCH ×2 (07:38→21:03)
--- NOTE | 2023-08-29 08:05 | P.PN ---
Subjective Progress Note Date: 08/29/23 Patient did well overnight. She was seen at bedside this morning. Her pain is controlled. She states that she thinks her block is still working. She has not been up to ambulate yet. Her only complaint was feeling "funny" after receiving her first dose of Ancef. She requested Benadryl before her second dose. Objective - Vital Signs Vital signs: Vital Signs Temp 97.4 F L 08/29/23 06:59 Pulse 95 08/29/23 06:59 Resp 16 08/29/23 06:59 BP 96/61 08/29/23 06:59 Pulse Ox 94 L 08/29/23 06:59 FiO2 Intake & Output 08/28/23 08/29/23 08/29/23 18:59 06:59 18:59 Intake Total 1550 Output Total 550 600 Balance 1000 -600 Weight 74.7 kg 74.7 kg Intake: IV 1550 Output: Drainage 100 Right Anterior Knee 100 Urine 250 500 Estimated Blood Loss 300 - Exam The patient is sitting up comfortably in bed. She is alert and able to answer questions. A focused exam of the right lower extremity was conducted. On inspection her incisional wound VAC is in place with good seal. Her Hemovac is also in place. Her thigh and calf are soft. She is able to actively plantarflex and dorsiflex her ankle and her toes. Assessment and Plan Assessment: Postoperative day #1 status post right revision knee replacement an incisional wound VAC placement Plan: 1. Weight-bear as tolerated right lower extremity, up with assistance and a walker 2. DVT prophylaxis with aspirin 81 mg twice a day 4 weeks 3. Internal medicine for perioperative medical management 4. Low index of suspicion for periprosthetic joint infection (preoperative cultures were negative, cell count and preoperative aspiration was normal, and no sign of purulence or signs of intraoperative infection) of multiple tissue cultures were sent for culture as a precaution. If these are negative the patient will be sent home on 6 weeks of doxycycline for low-dose suppression. If cultures are positive we will consult infectious disease for recommendations. 5. Physical therapy 6. Dispo: The patient will stay at least until tomorrow given her extensive revision surgery. We'll plan on discharge home either tomorrow or Thursday depending on her progress with therapy and pain control. Due to the hospital pharmacy being closed on the weekend all of her prescription medications were sent to her home pharmacy listed through our office EMR.
[2023-08-29] MEDS: diphenhydrAMINE 25 MG CAP PO PRN ×2 (08:24→21:06)
[2023-08-29 09:06] LABS: Basophils % (A) 0 %; Eosinophils % (A) 0 %; HGB 9.5 gm/dL (11.4-16.0); Lymphocytes % (A) 9 %; MCH 31.5 pg (25.0-35.0); MCV 92.6 fL (80.0-100.0); Mean Platelet Volume 7.2; Monocytes # (A) 0.6 k/uL (0-1.0); Monocytes % (A) 5 %; Neutrophils # (A) 9.8 k/uL (1.3-7.7); Neutrophils % (A) 86 %; Platelet Count 240 k/uL (150-450); RBC 3.03 m/uL (3.80-5.40); RDW 13.8 % (11.5-15.5); WBC 11.5 k/uL (3.8-10.6)
[2023-08-29] MEDS ORDERED: CYCLOBENZAPRINE 10 MG TAB PO PRN (11:19)
[2023-08-29] MEDS ORDERED: MONTELUKAST 10 MG TAB PO PRN (11:19)
[2023-08-29] MEDS: LEVOTHYROXINE 75 MCG TAB PO SCH (12:45)
[2023-08-29] MEDS: LEVOTHYROXINE 100 MCG TAB PO SCH (12:45)
[2023-08-29] MEDS ORDERED: SERTRALINE 100 MG TAB PO SCH (21:00)
[2023-08-29] MEDS: ALPRAZolam 0.5 MG TAB PO SCH (21:02)
[2023-08-29] MEDS: METOPROLOL TARTRATE 25 MG TAB PO SCH (21:03)
[2023-08-29] MEDS: SENNOSIDES-DOCUSATE SODIUM 1 EACH TAB PO SCH (21:52)
[2023-08-30] MEDS: SODIUM CHLORIDE 0.9% 1,000 ML IV SCH ×2 (01:04→10:23)
[2023-08-30 02:34] VITALS: TEMP 98.9
[2023-08-30] MEDS: HYDROcodone/APAP 10-325MG 1 EACH TAB PO PRN ×2 (05:10→10:23)
[2023-08-30] MEDS: LACTATED RINGERS 1,000 ML IV SCH (06:04)
[2023-08-30] MEDS: LEVOTHYROXINE 75 MCG TAB PO SCH (06:19)
[2023-08-30] MEDS: LEVOTHYROXINE 100 MCG TAB PO SCH (06:19)
[2023-08-30 07:31] VITALS: BP 101/63; PULSE 83; RESP 16
[2023-08-30] MEDS: ASPIRIN 81 MG PO SCH (08:04)
[2023-08-30] MEDS: METOPROLOL TARTRATE 25 MG TAB PO SCH (08:05)
[2023-08-30] MEDS: ALPRAZolam 0.5 MG TAB PO SCH (08:05)
--- NOTE | 2023-08-30 08:20 | P.PN ---
Subjective Progress Note Date: 08/30/23 The patient is slightly more painful today as her block wears off. She has no other complaints. She did well with therapy yesterday. She is hoping to go home today. Objective - Vital Signs Vital signs: Vital Signs Temp 98.9 F 08/30/23 06:50 Pulse 83 08/30/23 06:50 Resp 16 08/30/23 06:50 BP 101/63 08/30/23 06:50 Pulse Ox 94 L 08/30/23 06:50 FiO2 Intake & Output 08/29/23 08/30/23 08/30/23 18:59 06:59 18:59 Output Total 120 100 Balance -120 -100 Output: Drainage 120 100 Right Anterior Knee 120 100 Other: # Voids 3 2 - Exam The patient is alert and able to answer questions. A focused exam of the right leg was conducted. Her wound VAC is in place with a good seal. Her hemovac drain was removed. The thigh and calf are soft. Motor and sensory function are intact. - Labs CBC & Chem 7: 08/29/23 07:02 Labs: Abnormal Lab Results - Last 24 Hours (Table) 08/29/23 08/29/23 Range/Units 07:02 11:02 WBC 11.5 H (3.8-10.6) k/uL RBC 3.03 L (3.80-5.40) m/uL Hgb 9.5 L (11.4-16.0) gm/dL Hct 28.0 L (34.0-46.0) % Neutrophils # 9.8 H (1.3-7.7) k/uL Vitamin D 25-Hydroxy 22.0 L (30.0-100.0) ng/mL Assessment and Plan Assessment: POD #2 s/p right revision TKA for global instability, catastrophic poly wear and metallosis Plan: The patient is doing well and would like to d/c home today. We will plan on discharge home later today if she continues to do well. Otherwise, continue treatment as outlined yesterday.
--- NOTE | 2023-08-30 08:23 | P.DS ---
Providers Date of admission: 08/28/23 11:15 Attending physician: Noble Saunders Consults: 08/28/23 18:05 Consult Physician Routine Consulting Provider: Sweetie Moreno Consult Reason/Comments: post op medical management Do you want consulting provider notified?: Yes Primary care physician: Sweetie Moreno Assessment: The patient is a very pleasant 68 year old woman who was admitted [facility] for an elective revision TKA. She did well with surgery and was transferred to the surgical floor after her procedure. She got 2 doses of IV antibiotics. She got Aspirin 81 mg twice a day for DVT prophylaxis. IM was consulted for perioperative medical management. She worked with physical therapy. She discharge home on POD#2. Plan - Discharge Summary Discharge Rx Participant: No New Discharge Prescriptions: No Action Levothyroxine Sodium [Synthroid] 175 mcg PO QAM traMADol HCL 50 mg PO BID PRN PRN Reason: Pain ALPRAZolam [Xanax] 0.5 mg PO BID levETIRAcetam [Keppra] 750 mg PO BID Cyclobenzaprine [Flexeril] 10 mg PO QID PRN PRN Reason: Muscle Spasm Sertraline HCl [Zoloft] 100 mg PO HS Diclofenac Sodium Gel [Voltaren 1% Gel] 2 - 4 gm TOPICAL QID PRN PRN Reason: Pain Metoprolol Tartrate [Lopressor] 25 mg PO BID Cyclobenzaprine [Flexeril] 10 mg PO TID PRN PRN Reason: Muscle Pain Montelukast [Singulair] 10 mg PO QAM PRN PRN Reason: allergies Fluconazole [Diflucan] 150 mg PO QAM PRN PRN Reason: yeast infection Discharge Medication List Levothyroxine Sodium [Synthroid] 175 mcg PO QAM 02/23/14 [History] traMADol HCL 50 mg PO BID PRN 10/17/14 [History] ALPRAZolam [Xanax] 0.5 mg PO BID 04/27/18 [History] levETIRAcetam [Keppra] 750 mg PO BID 11/07/20 [History] Cyclobenzaprine [Flexeril] 10 mg PO QID PRN 08/25/21 [History] Sertraline HCl [Zoloft] 100 mg PO HS 08/25/21 [History] Diclofenac Sodium Gel [Voltaren 1% Gel] 2 - 4 gm TOPICAL QID PRN 11/21/22 [History] Metoprolol Tartrate [Lopressor] 25 mg PO BID 04/08/23 [History] Montelukast [Singulair] 10 mg PO QAM PRN 04/13/23 [History] Fluconazole [Diflucan] 150 mg PO QAM PRN 06/23/23 [History] Cyclobenzaprine [Flexeril] 10 mg PO TID PRN 08/25/23 [History] Follow up Appointment(s)/Referral(s): [facility], [NON-STAFF] - 1-2 Days Noble Saunders MD [Medical Doctor] - 1 Week Activity/Diet/Wound Care/Special Instructions: 1. Weight-bear as tolerated on your operative extremity unless instructed otherwise. Use a walker or other assistive device to ambulate. 2. Leave surgical dressing in place. If your dressing becomes saturated with blood, there is drainage, or the dressing becomes loose please contact the office. 3. It is okay to shower with your surgical dressing, but do not submerge in water (no hot tubs, bath's, swimming etc.) 4. Make sure to take her blood clot prevention medication as prescribed (aspirin, Eliquis, Xarelto, and Plavix are commonly prescribed medications for blood clot prevention) 5. While taking [place] or Percocet for pain make sure you're taking a stool softener (Colace) and drink lots of water. 6. Keep all follow-up appointments as scheduled. You will need to be seen 1 week after surgery to remove your Prevena wound VAC. 7. Please contact the office with any questions or concerns [phone] Discharge Disposition: HOME SELF-CARE
--- NOTE | 2023-08-30 08:24 | P.CONS ---
History of Present Illness - Reason for Consult Consult date: 08/29/23 Medical mangement Requesting physician: Noble Saunders - Chief Complaint Right TKA-Revision - History of Present Illness HISTORY OF PRESENT ILLNESS: This is a 68-year-old female with a previous medical history significant for hypertension and hypertensive cardiovascular disease, hyperlipidemia, history of paroxysmal atrial fibrillation, seizure disorder, ALLERGIC rhinitis, anxiety disorder, patient has had bilateral knee arthroscopic surgery that was done many years back and developed to have a significant loosening of the hardware and she was seen in consultation by Dr. Saunders and he was recommended for her to go for right total knee arthroplasty revision that was done and I was asked to see the patient for postoperative medical management. REVIEW OF SYSTEMS: Constitutional: No documented fever, no chills, no night sweats. No weight change. No weakness, fatigue or lethargy. No daytime sleepiness. HEENT: No headache. No blurred vision or double vision, no loss of vision. No loss of Hearing, no ringing in the ears, no dizziness. No nasal drainage or congestion. No epistaxis. No sore throat. Lungs: No shortness of breath, no cough, no sputum production. No wheezing. Reports dyspnea with activity. Cardiovascular: No chest pain, no lower extremity edema. No palpitations. No paroxysmal nocturnal dyspnea. No orthopnea. No lightheadedness or dizziness. No syncopal episodes. Abdominal: Reports no abdominal pain. No nausea, vomiting. No diarrhea. No constipation. No bloody or tarry stools reports loss of appetite. Genitourinary: No dysuria, increased frequency, urgency. No urinary retention. Musculoskeletal: No myalgias. No muscle weakness, no gait dysfunction, no frequent falls. No back pain. No neck pain. Positive for right knee pain. Integumentary: No wounds, no lesions. No rash or pruritus. No unusual bruising. No change in hair or nails. Neurologic: No aphasia. No facial droop. No change in mentation. No head injury. No headache. No paralysis. No paresthesia. Psychiatric: No depression. No anxiety. No mood swings. Endocrine: No abnormal blood sugars. No weight change. PAST MEDICAL HISTORY: Hypertension and hypertensive cardiovascular disease. Hyperlipidemia. Paroxysmal atrial fibrillation. ALLERGIC rhinitis. Anxiety. Osteoarthritis. Seizure. PAST SURGICAL HISTORY: Bilateral total knee replacement. Tonsillectomy Cholecystectomy. Gastric bypass Marisela-en-Y surgery. 2. Partial hysterectomy. colonoscopy 2015. SOCIAL HISTORY: Patient is a lifelong nonsmoker she denies any drinking she denies any drug use or abuse. She denies any marijuana use. FAMILY HISTORY: Father at age of 83 from hypertension competition mother at age of 84 from non-Hodgkin lymphoma and she had hypothyroidism and hyperlipidemia patient had 3 brothers one at the age of 35 from myocardial infarction and the other 2 are okay patient has 3 sisters one with hypothyroidism and hyperlipidemia and neuropathy and the other 2 with neuropathy patient has 4 daughters one with seizure and the other 3 are okay PHYSICAL EXAMINATION: General: 68-year-old lady laying down in bed in no apparent distress. HEENT: Head is atraumatic, normocephalic, pupils were equal round reactive to light and recommendation, extraocular muscle movement were intact, sclera nonicteric, conjunctivae were pale, mucous membranes of the mouth are somewhat dry. Neck: Supple, no JVP, normal carotid upstroke bilaterally, no lymphadenopathy. Chest: Decreased breath sounds at the bases, few rhonchi, no expiratory wheezes, no chest wall tenderness, no intercostal retractions. Heart: First heart sound is normal, second heart sounds normal there is no gallop, there is systolic ejection murmur 2/6 located in the left sternal border. Abdomen: Soft, nontender, nondistended, positive bowel sounds, there is no hepatosplenomegaly. Extremities: There is no edema no calf tenderness DP +2 bilaterally, right knee is wrapped, there is wound drain in place. Neurologic examination: Patient is awake alert and oriented X3 , cranial nerves II-12 appear grossly intact, muscle power were 5 out of 5 in upper extremities and 5 out of 5 in bilateral lower extremities, deep tendon reflexes normal bilaterally. ASSESSMENT AND PLAN: 1. Post operative day #1 status post Right total knee arthroplasty revision. She was instructed to continue to use the incentive spirometer, early ,early ambulation continue current DVT prophylaxis as per orthopedic surgery she was started on baby aspirin 81 mg orally twice every day, continue with early ambulation, continue physical therapy, continue to monitor the patient very closely. 2. Hypertension and hypertensive cardiovascular disease. we will continue with Metoprolol 25 mg po bid and we will continue to monitor BP very closely 3. Hyperlipidemia. Patient is not taking any statins at this time even though she was advised to do so 4. Hypothyroidism. Continue patient on levothyroxin 175 g orally once every day. 5. History of seizure disorder. Continue patient on Keppra 750 mg orally twice every day. 6. Anxiety disorder. Continue patient on Xanax 0.5 mg orally twice every day as needed along with sertraline 100 mg orally once every day. 7. ALLERGIC rhinitis. Continue montelukast 10 mg orally once every bedtime. 8. DVT prophylaxis. Currently on aspirin 81 mg orally twice every day. 9. GI prophylaxis. None needed. 10. Constipation. continue patient on Senokot twice a day. 11. Thank you for consultation. Past Medical History Past Medical History: Atrial Fibrillation, Asthma, Deep Vein Thrombosis (DVT), Fibromyalgia, Hypertension, Osteoarthritis (OA), Thyroid Disorder Additional Past Medical History / Comment(s): Sigmoid volvulus/diverticular disease with recent bowel resection, Current UTI/antibiotic for 2 more days, ALBARO'S, CHRONIC BACK PAIN, past hx. 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", recurrent hiatal hernia, allergy induced asthma History of Any Multi-Drug Resistant Organisms: None Reported Past Surgical History: Appendectomy, Bariatric Surgery, Bowel Resection, Breast Surgery, Section, Heart Catheterization, Hernia Repair, Hysterectomy, Joint Replacement, Orthopedic Surgery, Tonsillectomy, Tubal Ligation Additional Past Surgical History / Comment(s): 06/19/23 robot assisted laparoscopic low anterior resection, sigmoid colectomy, BILAT TKA, FOOT SX, breast bx., Colonoscopy, EGD1, Hx.gastric bypass with esophagus repair (March 2015), HIATAL HERNIA, VENTRAL HERNIA, EGD, revision of total left knee Past Anesthesia/Blood Transfusion Reactions: No Reported Reaction Additional Past Anesthesia/Blood Transfusion Reaction / Comm: Pt has never had a blood transfusion. Past Psychological History: Anxiety Additional Psychological History / Comment(s): Pt resides with spouse. Pt uses no device. Smoking Status: Never smoker Past Alcohol Use History: None Reported Past Drug Use History: None Reported - Past Family History Father Family Medical History: Coronary Artery Disease (CAD) Mother Family Medical History: Cancer Additional Family Medical History / Comment(s): NON-HODGKINS LYMPHOMA Brother(s) Family Medical History: Myocardial Infarction (MT) Sister(s) Family Medical History: Myocardial Infarction (MT), Thyroid Disorder Medications and Allergies Home Medications Medication Instructions Recorded Confirmed Type Levothyroxine Sodium [Synthroid] 175 mcg PO QAM 02/23/14 08/28/23 History traMADol HCL 50 mg PO BID PRN 10/17/14 08/28/23 History ALPRAZolam [Xanax] 0.5 mg PO BID 04/27/18 08/28/23 History levETIRAcetam [Keppra] 750 mg PO BID 11/07/20 08/28/23 History Cyclobenzaprine [Flexeril] 10 mg PO QID PRN 08/25/21 08/28/23 History Sertraline HCl [Zoloft] 100 mg PO HS 08/25/21 08/28/23 History Diclofenac Sodium Gel [Voltaren 1% 2 - 4 gm TOPICAL QID PRN 11/21/22 08/28/23 H istory Gel] Metoprolol Tartrate [Lopressor] 25 mg PO BID 04/08/23 08/28/23 History Montelukast [Singulair] 10 mg PO QAM PRN 04/13/23 08/28/23 History Fluconazole [Diflucan] 150 mg PO QAM PRN 06/23/23 08/28/23 History Cyclobenzaprine [Flexeril] 10 mg PO TID PRN 08/25/23 08/28/23 History Allergies Allergy/AdvReac Type Severity Reaction Status Date / Time azithromycin Allergy Severe Rapid Verified 08/28/23 11:43 Heart Rate metronidazole [From Flagyl] Allergy Severe Dyspnea Verified 08/28/23 11:43 Penicillins AdvReac Swelling Verified 08/28/23 11:43 of legs Physical Exam Vitals: Vital Signs Temp Pulse Pulse Pulse Resp BP Pulse Ox 08/29/23 06:59 97.4 F L 95 16 96/61 94 L 08/29/23 05:05 94 96/60 08/29/23 03:05 93 96/58 08/29/23 01:44 98 F 93 18 88/53 93 L 08/29/23 01:05 93 96/60 95 08/28/23 23:05 92 98/60 96 08/28/23 21:45 95 94/57 95 08/28/23 21:30 92 98/64 94 L 08/28/23 21:15 99 93/61 08/28/23 21:05 98.3 F 96 89/56 08/28/23 21:00 96 89/56 93 L 08/28/23 20:45 97 92/59 96 08/28/23 20:30 95 94/61 92 L 08/28/23 20:15 96 88/53 96 08/28/23 20:05 96 F L 96 18 88/53 96 08/28/23 20:00 97 90/55 97 08/28/23 19:45 97.5 F L 95 18 104/69 99 08/28/23 19:29 88 16 91/61 97 08/28/23 19:14 89 16 97/54 100 08/28/23 18:59 93 12 96/63 98 08/28/23 18:44 88 12 101/62 100 08/28/23 18:29 90 12 94/52 95 08/28/23 18:14 94 14 92/51 95 08/28/23 17:59 97.1 F L 99 18 94/52 95 08/28/23 13:35 71 16 103/59 99 08/28/23 11:49 98.3 F 73 16 113/58 99 Intake and Output 08/28/23 08/29/23 08/29/23 22:59 06:59 14:59 Intake Total 700 Output Total 600 550 Balance 100 -550 Intake: IV 700 Output: Drainage 100 Right Anterior Knee 100 Urine 300 450 Estimated Blood Loss 300 Other: Weight 74.7 kg Results CBC & Chem 7: 08/29/23 07:02 Labs: Abnormal Lab Results - Last 24 Hours (Table) 08/29/23 Range/Units 07:02 WBC 11.5 H (3.8-10.6) k/uL RBC 3.03 L (3.80-5.40) m/uL Hgb 9.5 L (11.4-16.0) gm/dL Hct 28.0 L (34.0-46.0) % Neutrophils # 9.8 H (1.3-7.7) k/uL
--- NOTE | 2023-09-01 06:31 | P.PN ---
Subjective Progress Note Date: 08/30/23 HISTORY OF PRESENT ILLNESS: This is a 68-year-old female with a previous medical history signif icant for hypertension and hypertensive cardiovascular disease, hyperlipidemia, history of paroxysmal atrial fibrillation, seizure disorder, ALLERGIC rhinitis, anxiety disorder, patient has had bilateral knee arthroscopic surgery that was done many years back and developed to have a significant loosening of the hardware and she was seen in consultation by Dr. Saunders and he was recommended for her to go for right total knee arthroplasty revision that was done and I was asked to see the patient for postoperative medical management. 08/30: Patient is sitting at the edge of the bed, she is feeling a bit better today, she is having more pain, she continues to have the wound VAC in place, she continues to have the drain in place, she is likely will be discharged today after removal of the drain today, she is ambulating by herself using a walker, she denies any chest pain, or any shortness breath, she appears to be tolerating her treatment very well. REVIEW OF SYSTEMS: Constitutional: No documented fever, no chills, no night sweats. No weight change. No weakness, fatigue or lethargy. No daytime sleepiness. HEENT: No headache. No blurred vision or double vision, no loss of vision. No loss of Hearing, no ringing in the ears, no dizziness. No nasal drainage or congestion. No epistaxis. No sore throat. Lungs: No shortness of breath, no cough, no sputum production. No wheezing. Reports dyspnea with activity. Cardiovascular: No chest pain, no lower extremity edema. No palpitations. No paroxysmal nocturnal dyspnea. No orthopnea. No lightheadedness or dizziness. No syncopal episodes. Abdominal: Reports no abdominal pain. No nausea, vomiting. No diarrhea. No constipation. No bloody or tarry stools reports loss of appetite. Genitourinary: No dysuria, increased frequency, urgency. No urinary retention. Musculoskeletal: No myalgias. No muscle weakness, no gait dysfunction, no frequent falls. No back pain. No neck pain. Positive for right knee pain. Integumentary: No wounds, no lesions. No rash or pruritus. No unusual bruising. No change in hair or nails. Neurologic: No aphasia. No facial droop. No change in mentation. No head injury. No headache. No paralysis. No paresthesia. Psychiatric: No depression. No anxiety. No mood swings. Endocrine: No abnormal blood sugars. No weight change. PHYSICAL EXAMINATION: General: 68-year-old lady laying down in bed in no apparent distress. HEENT: Head is atraumatic, normocephalic, pupils were equal round reactive to light and recommendation, extraocular muscle movement were intact, sclera nonicteric, conjunctivae were pale, mucous membranes of the mouth are somewhat dry. Neck: Supple, no JVP, normal carotid upstroke bilaterally, no lymphadenopathy. Chest: Decreased breath sounds at the bases, few rhonchi, no expiratory wheezes, no chest wall tenderness, no intercostal retractions. Heart: First heart sound is normal, second heart sounds normal there is no gallop, there is systolic ejection murmur 2/6 located in the left sternal border. Abdomen: Soft, nontender, nondistended, positive bowel sounds, there is no hepatosplenomegaly. Extremities: There is no edema no calf tenderness DP +2 bilaterally, right knee is wrapped, there is wound drain in place. Neurologic examination: Patient is awake alert and oriented X3 , cranial nerves II-12 appear grossly intact, muscle power were 5 out of 5 in upper extremities and 5 out of 5 in bilateral lower extremities, deep tendon reflexes normal bilaterally. ASSESSMENT AND PLAN: 1. Post operative day #2 status post Right total knee arthroplasty revision. She was instructed to continue to use the incentive spirometer, early ,early ambulation continue current DVT prophylaxis as per orthopedic surgery she was started on baby aspirin 81 mg orally twice every day, continue with early ambulation, continue physical therapy, continue to monitor the patient very closely. 2. Hypertension and hypertensive cardiovascular disease. we will continue with Metoprolol 25 mg po bid and we will continue to monitor BP very closely 3. Hyperlipidemia. Patient is not taking any statins at this time even though she was advised to do so 4. Hypothyroidism. Continue patient on levothyroxin 175 g orally once every day. 5. History of seizure disorder. Continue patient on Keppra 750 mg orally twice every day. 6. Anxiety disorder. Continue patient on Xanax 0.5 mg orally twice every day as needed along with sertraline 100 mg orally once every day. 7. ALLERGIC rhinitis. Continue montelukast 10 mg orally once every bedtime. 8. DVT prophylaxis. Currently on aspirin 81 mg orally twice every day. 9. GI prophylaxis. None needed. 10. Constipation. continue patient on Senokot twice a day. 11. Patient is medically stable for discharge Objective - Vital Signs Vital signs: Vital Signs Temp 98.9 F 08/30/23 06:50 Pulse 83 08/30/23 06:50 Resp 16 08/30/23 06:50 BP 101/63 08/30/23 06:50 Pulse Ox 94 L 08/30/23 06:50 FiO2 Intake & Output 08/29/23 08/30/23 08/30/23 18:59 06:59 18:59 Output Total 120 100 Balance -120 -100 Output: Drainage 120 100 Right Anterior Knee 120 100 Other: # Voids 3 2 - Labs CBC & Chem 7: 08/29/23 07:02 Labs: Abnormal Lab Results - Last 24 Hours (Table) 08/29/23 08/29/23 Range/Units 07:02 11:02 WBC 11.5 H (3.8-10.6) k/uL RBC 3.03 L (3.80-5.40) m/uL Hgb 9.5 L (11.4-16.0) gm/dL Hct 28.0 L (34.0-46.0) % Neutrophils # 9.8 H (1.3-7.7) k/uL Vitamin D 25-Hydroxy 22.0 L (30.0-100.0) ng/mL
== END 2023-08-30 12:05 | disposition home health service (06) | DRG 468 ==
LOC: 2ORMAIN 11:15 → EDSTATUS 13:05 → 4SSUR 18:14
PROVIDERS: ADMIT Orthopaedic Surgery; ATTEND Orthopaedic Surgery
PROC: 0SPC0JZ Removal of Synthetic Substitute from Right Knee Joint, Open Approach (ICD-10-PCS; principal; 2023-08-28 13:05)
PROC: 0SRC0J9 Replacement of Right Knee Joint with Synthetic Substitute, Cemented, Open Approach (ICD-10-PCS; principal; 2023-08-28 13:05)
DX: T84.062A Wear of articular bearing surface of internal prosthetic right knee joint, initial encounter (principal); I11.9 Hypertensive heart disease without heart failure; E03.9 Hypothyroidism, unspecified; G40.909 Epilepsy, unspecified, not intractable, without status epilepticus; I48.0 Paroxysmal atrial fibrillation; E78.2 Mixed hyperlipidemia; M23.51 Chronic instability of knee, right knee; F41.9 Anxiety disorder, unspecified; J45.909 Unspecified asthma, uncomplicated; I25.10 Atherosclerotic heart disease of native coronary artery without angina pectoris; K59.00 Constipation, unspecified; M79.7 Fibromyalgia; G89.29 Other chronic pain; M54.9 Dorsalgia, unspecified; M19.90 Unspecified osteoarthritis, unspecified site; K57.30 Diverticulosis of large intestine without perforation or abscess without bleeding; Z79.890 Hormone replacement therapy; Z79.82 Long term (current) use of aspirin; Z79.899 Other long term (current) drug therapy; Z86.718 Personal history of other venous thrombosis and embolism; Z96.653 Presence of artificial knee joint, bilateral; Z98.84 Bariatric surgery status; Z88.0 Allergy status to penicillin; Z88.1 Allergy status to other antibiotic agents; Y79.2 Prosthetic and other implants, materials and accessory orthopedic devices associated with adverse incidents
CPT/HCPCS: 64447; 64999; 82306; 85025

== ENCOUNTER 2023-09-05 22:32 | Emergency (ER) | payer MEDICARE ==
[2023-09-05 22:46] VITALS: BP 124/76; PULSE 69; RESP 17; TEMP 98.4
[2023-09-05] MEDS ORDERED: predniSONE 20 MG TAB PO STA (22:59)
--- NOTE | 2023-09-05 22:59 | ED ---
General Adult HPI - General Chief complaint: Skin/Abscess/Foreign Body Stated complaint: Post-Op Complications, Allergic Reaction Time Seen by Provider: 09/05/23 22:43 Source: patient Mode of arrival: ambulatory Limitations: no limitations - History of Present Illness Initial comments: 68-year-old female presenting with chief complaint of redness and itching surrounding her knee replacement incision. Patient had a total knee replacement on 08/28/[address] Saunders. Wound VAC was applied. Wound VAC was removed this past and clear adhesive was applied over the incision. Patient states that since was applied she has had redness and blistering over the area where the adhesive was applied. The adhesive has since been removed. Patient is continuing to have hives and itching. Her postoperative pain is well- controlled. There is no discharge. No fevers. No increased joint swelling. Patient took Benadryl at home and has applied hydrocortisone cream one time this evening. No chest pain or shortness of breath. No swelling to the lips or face. - Related Data Home Medications Medication Instructions Recorded Confirmed Levothyroxine Sodium [Synthroid] 175 mcg PO QAM 02/23/14 08/28/23 traMADol HCL 50 mg PO BID PRN 10/17/14 08/28/23 ALPRAZolam [Xanax] 0.5 mg PO BID 04/27/18 08/28/23 levETIRAcetam [Keppra] 750 mg PO BID 11/07/20 08/28/23 Cyclobenzaprine [Flexeril] 10 mg PO QID PRN 08/25/21 08/28/23 Sertraline HCl [Zoloft] 100 mg PO HS 08/25/21 08/28/23 Diclofenac Sodium Gel [Voltaren 1% 2 - 4 gm TOPICAL QID PRN 11/21/22 08/28/23 Gel] Metoprolol Tartrate [Lopressor] 25 mg PO BID 04/08/23 08/28/23 Montelukast [Singulair] 10 mg PO QAM PRN 04/13/23 08/28/23 Fluconazole [Diflucan] 150 mg PO QAM PRN 06/23/23 08/28/23 Cyclobenzaprine [Flexeril] 10 mg PO TID PRN 08/25/23 08/28/23 Allergies Allergy/AdvReac Type Severity Reaction Status Date / Time azithromycin Allergy Severe Rapid Verified 09/05/23 22:41 Heart Rate metronidazole [From Flagyl] Allergy Severe Dyspnea Verified 09/05/23 22:41 Penicillins AdvReac Swelling Verified 09/05/23 22:41 of legs Review of Systems ROS Statement: Those systems with pertinent positive or pertinent negative responses have been documented in the HPI. ROS Other: All systems not noted in ROS Statement are negative. Past Medical History Past Medical History: Atrial Fibrillation, Asthma, Deep Vein Thrombosis (DVT), Fibromyalgia, Osteoarthritis (OA), Thyroid Disorder Additional Past Medical History / Comment(s): CURRENT UTI, CHRONIC NAUSEA. ALBARO'S, CHRONIC BACK PAIN, was told years ago had remnants of DVT in calf by vascular , dysphagia @times, hiatal hernia, past hx. 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", allergy induced asthma History of Any Multi-Drug Resistant Organisms: None Reported Past Surgical History: Appendectomy, Bariatric Surgery, Breast Surgery, Section, Heart Catheterization, Hernia Repair, Hysterectomy, Joint Replacement, Orthopedic Surgery, Tonsillectomy, Tubal Ligation Additional Past Surgical History / Comment(s): BILAT TKA, FOOT SX, breast bx., Colonoscopy, EGD1, Hx.gastric bypass with esophagus repair (March 2015), HIATAL HERNIA, VENTRAL HERNIA, recent EGD, revision of total left knee Past Anesthesia/Blood Transfusion Reactions: No Reported Reaction Additional Past Anesthesia/Blood Transfusion Reaction / Comment(s): Pt has never had a blood transfusion. Past Psychological History: Anxiety Smoking Status: Never smoker Past Alcohol Use History: None Reported Past Drug Use History: None Reported - Past Family History Father Family Medical History: Coronary Artery Disease (CAD) Mother Family Medical History: Cancer Additional Family Medical History / Comment(s): NON-HODGKINS LYMPHOMA Brother(s) Family Medical History: Myocardial Infarction ([place]) Sister(s) Family Medical History: Myocardial Infarction (SD), Thyroid Disorder General Exam Limitations: no limitations General appearance: alert, in no apparent distress Head exam: Present: atraumatic, normocephalic, normal inspection Eye exam: Present: normal appearance, EOMI Neck exam: Present: normal inspection, full ROM Respiratory exam: Absent: respiratory distress Right Knee exam: Present: erythema (Erythema and hives/blistering that are well demarcated, they appear to follow the outline of the previous adhesive that was applied over the patient's incision) Neurological exam: Present: alert, oriented X3 Psychiatric exam: Present: normal affect, normal mood Skin exam: Present: rash, erythema, urticaria Course Vital Signs 09/05/23 22:36 Temperature 98.4 F Pulse Rate 69 Respiratory 17 Rate Blood Pressure 124/76 O2 Sat by Pulse 100 Oximetry Medical Decision Making - Medical Decision Making Was pt. sent in by a medical professional or institution (, [employer], [employer], urgent care, hospital, or group home...) When possible be specific @ -No Did you speak to anyone other than the patient for history (EMS, parent, family, police, friend...)? What history was obtained from this source @ -No Did you review nursing and triage notes (agree or disagree)? Why? @ -I reviewed and agree with nursing and triage notes Were old charts reviewed (outside hosp., previous admission, EMS record, old EKG, old radiological studies, urgent care reports/EKG's, group home records)? Report findings @ -No old charts were reviewed Differential Diagnosis (chest pain, altered mental status, abdominal pain women, abdominal pain men, vaginal bleeding, weakness, fever, dyspnea, syncope, headache, dizziness, GI bleed, back pain, seizure, CVA, palpatations, mental health, musculoskeletal)? @ -Differential includes ALLERGIC reaction, cellulitis, contact dermatitis, this is not an all inclusive list EKG interpreted by me (3pts min.). @ -As above X-rays interpreted by me (1pt min.). @ -None done CT interpreted by me (1pt min.). @ -None done U/S interpreted by me (1pt. min.). @ -None done What testing was considered but not performed or refused? (CT, X-rays, U/S, labs)? Why? @ -None What meds were considered but not given or refused? Why? @ -None Did you discuss the management of the patient with other professionals (professionals i.e. , [employer], [employer], lab, RT, psych nurse, social worker psychiatric, resistor coater, teacher, tactical response group officer, case packer and sealer)? Give summary @ -No Was smoking cessation discussed for >3mins.? @ -No Was critical care preformed (if so, how long)? @ -No Were there social determinants of health that impacted care today? How? (Homelessness, low income, unemployed, alcoholism, drug addiction, transportation, low edu. Level, literacy, decrease access to med. care, skilled nursing, rehab)? @ -No Was there de-escalation of care discussed even if they declined (Discuss DNR or withdrawal of care, Hospice)? DNR status @ -No What co-morbidities impacted this encounter? (DM, HTN, Smoking, COPD, CAD, Cancer, CVA, ARF, Chemo, Hep., AIDS, mental health diagnosis, sleep apnea, morbid obesity)? @ -None Was patient admitted / discharged? Hospital course, mention meds given and route, prescriptions, significant lab abnormalities, going to OR and other pertinent info. @ -68-year-old female presenting with chief complaint of redness, hives, blistering, itching surrounding her knee replacement incision. This occurred when a clear adhesive was applied over the incision a few days ago. States that symptoms have been getting worse. She is having no fevers, increased joint swelling, increased pain, or discharge. There is a well-demarcated area of erythema, hives, and blistering over the incision that appears to follow the pattern over the clear adhesive is applied. Patient has been taking Benadryl at home and may continue to do so. She may also continue to apply hydrocortisone cream to the affected area while avoiding the incision. She is given 1 dose of prednisone 60 mg here in the ER. Instructed to follow-up with her surgeon. Follow-up with PCP. Report back to ER with any new or worsening symptoms. Discussed return parameters and answered all questions. Patient conveyed verbal understanding and agreed to the plan. I discussed this case in detail with my attending Dr. Guillermo Undiagnosed new problem with uncertain prognosis? @ -No Drug Therapy requiring intensive monitoring for toxicity (Heparin, Nitro, Insulin, Cardizem)? @ -No Were any procedures done? @ -No Diagnosis/symptom? @ -contact dermatitis Acute, or Chronic, or Acute on Chronic? @ -Acute Uncomplicated (without systemic symptoms) or Complicated (systemic symptoms)? @ -Uncomplicated Side effects of treatment? @ -No Exacerbation, Progression, or Severe Exacerbation? @ -No Poses a threat to life or bodily function? How? (Chest pain, USA, SD, pneumonia, PE, COPD, DKA, ARF, appy, cholecystitis, CVA, Diverticulitis, Homicidal, Suicidal, threat to staff... and all critical care pts) @ -No Disposition Clinical Impression: Contact dermatitis Disposition: HOME SELF-CARE Condition: Good Instructions (If sedation given, give patient instructions): Contact Dermatitis (ED) Additional Instructions: Follow-up with your orthopedist. Report back to ER with any new or worsening symptoms. Apply hydrocortisone cream along the edges of the site of irritation, do not apply over the incision. Keep the wound clean and dry. Do not apply any adhesives to the affected area. Is patient prescribed a controlled substance at d/c from ED?: No Referrals: Sweetie Moreno MD [Primary Care Provider] - 1-2 days Time of Disposition: 22:59
== END 2023-09-05 23:18 | disposition home or self-care (01) ==
LOC: EC 22:32
DX: L25.9 Unspecified contact dermatitis, unspecified cause (principal); J45.909 Unspecified asthma, uncomplicated; E07.9 Disorder of thyroid, unspecified; F41.9 Anxiety disorder, unspecified; Z79.890 Hormone replacement therapy; Z79.899 Other long term (current) drug therapy; Z88.0 Allergy status to penicillin; Z88.1 Allergy status to other antibiotic agents; Z88.8 Allergy status to other drugs, medicaments and biological substances; Z90.49 Acquired absence of other specified parts of digestive tract; Z98.84 Bariatric surgery status
CPT/HCPCS: 99283; J7512

== ENCOUNTER → 2024-01-07 | Day surgery (SDC) | payer MEDICARE ==
[2024-01-05 15:27] VITALS: BMI 32.7
[~2024-01-07] MED LIST changes: -ACETAMINOPHEN TAB 500 MG TAB PO PRN; -DEXAMETHASONE SOD PHOSPHATE 10 MG/ML 1 ML VIAL IV PRN; -DOCUSATE 100 MG CAP PO PRN; -FAMOTIDINE 20 MG/2 ML VIAL IVP PRN; -HYDROmorphone 0.5 MG/0.5 ML SYRINGE IVP PRN; -KETOROLAC 15 MG/ML 1 ML VIAL IVP PRN; +LIDOCAINE 1% INJ 10MG/ML (20 ML MDV) ONE; -MIDAZOLAM 2 MG/2 ML VIAL IV PRN; -ONDANSETRON 4 MG/2 ML VIAL IVP PRN; +PROPOFOL 10 MG/ML 20 ML VIAL IV ONE; -TRANEXAMIC 1,000 MG/100ML-NACL 1,000 MG in SALINE 1 100ML.BAG IV PRN; -TRANEXAMIC 1,000 MG/100ML-NACL 1,000 MG in SALINE 1 100ML.BAG IVPB PRN; -oxyCODONE ER 10 MG TAB.ER.12H PO PRN
[2024-01-07] MEDS: LACTATED RINGERS 1,000 ML IV SCH (08:31)
[2024-01-07 08:32] VITALS: TEMP 98.6
--- NOTE | 2024-01-07 08:53 | P.GSHP ---
History of Present Illness H&P Date: 01/07/24 CHIEF COMPLAINT: Esophageal stricture HISTORY OF PRESENT ILLNESS: The patient is a 68-year-old female who presents reports dysphagia. Upper endoscopy was offered for further evaluation and management. PAST MEDICAL HISTORY: Please see list. PAST SURGICAL HISTORY: Please see list. MEDICATIONS: Please see list. ALLERGIES: Please see list. SOCIAL HISTORY: No illicit drug use FAMILY HISTORY: No reports of Crohn disease or ulcerative colitis. REVIEW OF ORGAN SYSTEMS: CONSTITUTIONAL: No reports of fevers or chills. GI: Denies any blood in stools or constipation. PHYSICAL EXAM: VITAL SIGNS: Stable GENERAL: Well-developed and pleasant in no acute distress. HEENT: No scleral icterus. Extraocular movements grossly intact. Moist buccal mucosa. NECK: Supple without lymphadenopathy. CHEST: Unlabored respirations. Equal bilateral excursions. CARDIOVASCULAR: Regular rate and rhythm. Distal 2+ pulses. ABDOMEN: Soft, nondistended. MUSCULOSKELETAL: No clubbing, cyanosis, or edema. ASSESSMENT: 1. Esophageal stricture PLAN: 1. Recommend proceeding with an upper endoscopy with dilation Past Medical History Past Medical History: Atrial Fibrillation, Asthma, Deep Vein Thrombosis (DVT), Fibromyalgia, Osteoarthritis (OA), Thyroid Disorder Additional Past Medical History / Comment(s): CHRONIC NAUSEA. ALBARO'S, CHRONIC BACK PAIN, was told years ago had remnants of DVT in calf by vascular drMihaela, dysphagia @times, hiatal hernia, past hx. 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", allergy induced asthma History of Any Multi-Drug Resistant Organisms: None Reported Past Surgical History: Appendectomy, Bariatric Surgery, Breast Surgery, Section, Heart Catheterization, Hernia Repair, Hysterectomy, Joint Replacement, Orthopedic Surgery, Tonsillectomy, Tubal Ligation Additional Past Surgical History / Comment(s): BILAT TKA, FOOT SX, breast bx., Colonoscopy, EGD1, Hx.gastric bypass with esophagus repair (March 2015), HIATAL HERNIA, VENTRAL HERNIA, recent EGD, revision of total left knee Past Anesthesia/Blood Transfusion Reactions: No Reported Reaction Additional Past Anesthesia/Blood Transfusion Reaction / Comment(s): Pt has never had a blood transfusion. Smoking Status: Never smoker - Past Family History Father Family Medical History: Coronary Artery Disease (CAD) Mother Family Medical History: Cancer Additional Family Medical History / Comment(s): NON-HODGKINS LYMPHOMA Brother(s) Family Medical History: Myocardial Infarction ([place]) Sister(s) Family Medical History: Myocardial Infarction ([place]), Thyroid Disorder Medications and Allergies Home Medications Medication Instructions Recorded Confirmed Type Levothyroxine Sodium [Synthroid] 175 mcg PO QAM 02/23/14 01/05/24 History traMADol HCL 50 mg PO BID PRN 10/17/14 01/07/24 History ALPRAZolam [Xanax] 0.5 mg PO BID 04/27/18 01/05/24 History levETIRAcetam [Keppra] 750 mg PO BID 11/07/20 01/05/24 History Sertraline HCl [Zoloft] 100 mg PO HS 08/25/21 01/05/24 History Montelukast [Singulair] 10 mg PO QAM PRN 04/13/23 01/07/24 History Cyclobenzaprine [Flexeril] 10 mg PO TID PRN 08/25/23 01/07/24 History Biotin [Kzvi-Zesz-Ndoup] 10,000 mcg PO DAILY 01/05/24 01/05/24 History Cranberry Fruit Concentrate [Azo 1 tab PO DAILY 01/05/24 01/05/24 History Cranberry] Estrogens, Conjugated Cream 1 applicator VAGINAL CHOI 01/05/24 01/07/24 History [Premarin Vaginal Cream] Metoprolol Tartrate [Lopressor] 50 mg PO BID 01/05/24 01/05/24 History Allergies Allergy/AdvReac Type Severity Reaction Status Date / Time azithromycin Allergy Severe Rapid Verified 01/07/24 08:13 Heart Rate metronidazole [From Flagyl] Allergy Severe Dyspnea Verified 01/07/24 08:13 Penicillins AdvReac Swelling Verified 01/07/24 08:13 of legs Surgical - Exam Vital Signs Temp Pulse Resp BP Pulse Ox 98.6 F 61 16 108/55 98 01/07/24 08:22 01/07/24 08:22 01/07/24 08:22 01/07/24 08:22 01/07/24 08:22
[2024-01-07 09:43] VITALS: RESP 14
--- NOTE | 2024-01-07 09:47 | P.PCN ---
Date of Procedure: 01/07/24 Description of Procedure: PREOPERATIVE DIAGNOSIS: Dysphagia. Gastroesophageal reflux disease POSTOPERATIVE DIAGNOSIS: Dysphagia. Gastroesophageal reflux disease Gastrojejunal stenosis Esophageal dysmotility Gastrojejunal stricture with chronic ulcer OPERATION: Esophagogastrojejunoscopy with [employer] 20 mm balloon dilator for gastrojejunal stenosis Esophagogastrojejunoscopy with rigid dilator over the guidewire 54 Fr with dilation of esophageal stenosis/dysmotility SURGEON: Kimmie Bush MD ANESTHESIA: MAC. INDICATIONS: The patient is a 68-year-old female who presents with a history of dysphagia. Benefits and risks of the procedure were described. Informed consent was obtained. DESCRIPTION: The patient was brought into the endoscopy suite and laid in the left lateral decubitus position. After a timeout was confirmed, the procedure was initiated. An Olympus gastroscope was passed into the posterior oropharynx down into the gastric pouch. The scope was entered into the gastric pouch with gastrojejunal stenosis along the gastrojejunal anastomosis. To address her 15 mm ga strojejunal stricture, a 20 mm [employer] balloon was used to dilate. Next using an Vietnamese rigid dilator, a guidewire was placed through the gastroscope. Next the scope was withdrawn. A 54-Spanish rigid Vietnamese dilator was passed carefully along the posterior oropharynx to 45 cm and left in place for 2-3 minutes stretch. The dilator was withdrawn including the guidewire. The scope was reentered along the posterior oropharynx with no findings of full- thickness tear of the upper esophageal sphincter. No full-thickness injury was encountered. The GI tract was desufflated. The p atient tolerated the procedure well. FINDINGS: Gastrojejunal anastomotic stricture with chronic ulceration, 2-mm, and stenosis dilated Presbyesophagus with esophageal dysmotility dilated Vietnamese rigid dilator 54-Spanish completed. RECOMMENDATIONS: Upper endoscopy as needed Plan - Discharge Summary Discharge Rx Participant: No New Discharge Prescriptions: No Action Levothyroxine Sodium [Synthroid] 175 mcg PO QAM traMADol HCL 50 mg PO BID PRN PRN Reason: Pain ALPRAZolam [Xanax] 0.5 mg PO BID levETIRAcetam [Keppra] 750 mg PO BID Sertraline HCl [Zoloft] 100 mg PO HS Cyclobenzaprine [Flexeril] 10 mg PO TID PRN PRN Reason: Muscle Pain Biotin [Hacd-Ylyb-Klcmy] 10,000 mcg PO DAILY Montelukast [Singulair] 10 mg PO QAM PRN PRN Reason: allergies Estrogens, Conjugated Cream [Premarin Vaginal Cream] 1 applicator VAGINAL CHOI Metoprolol Tartrate [Lopressor] 50 mg PO BID Cranberry Fruit Concentrate [Azo Cranberry] 1 tab PO DAILY Discharge Medication List Levothyroxine Sodium [Synthroid] 175 mcg PO QAM 02/23/14 [History] traMADol HCL 50 mg PO BID PRN 10/17/14 [History] ALPRAZolam [Xanax] 0.5 mg PO BID 04/27/18 [History] levETIRAcetam [Keppra] 750 mg PO BID 11/07/20 [History] Sertraline HCl [Zoloft] 100 mg PO HS 08/25/21 [History] Montelukast [Singulair] 10 mg PO QAM PRN 04/13/23 [History] Cyclobenzaprine [Flexeril] 10 mg PO TID PRN 08/25/23 [History] Biotin [Xpkm-Kxzo-Bmsqg] 10,000 mcg PO DAILY 01/05/24 [History] Cranberry Fruit Concentrate [Azo Cranberry] 1 tab PO DAILY 01/05/24 [History] Estrogens, Conjugated Cream [Premarin Vaginal Cream] 1 applicator VAGINAL CHOI 01/05/24 [History] Metoprolol Tartrate [Lopressor] 50 mg PO BID 01/05/24 [History]
[2024-01-07 10:21] VITALS: BP 107/59; PULSE 68
== END | disposition home or self-care (01) ==
LOC: ORWHC2ENDO 07:52
PROVIDERS: ATTEND Surgery Plastic and Reconstructive Surgery
DX: K21.00 Gastro-esophageal reflux disease with esophagitis, without bleeding (principal); K56.699 Other intestinal obstruction unspecified as to partial versus complete obstruction; K22.4 Dyskinesia of esophagus; K25.9 Gastric ulcer, unspecified as acute or chronic, without hemorrhage or perforation; K22.2 Esophageal obstruction; I48.91 Unspecified atrial fibrillation; J45.909 Unspecified asthma, uncomplicated; Z83.49 Family history of other endocrine, nutritional and metabolic diseases; M19.90 Unspecified osteoarthritis, unspecified site; M79.7 Fibromyalgia; Z86.718 Personal history of other venous thrombosis and embolism; Z90.49 Acquired absence of other specified parts of digestive tract; Z98.891 History of uterine scar from previous surgery; Z90.710 Acquired absence of both cervix and uterus; Z82.49 Family history of ischemic heart disease and other diseases of the circulatory system; Z79.890 Hormone replacement therapy; Z88.1 Allergy status to other antibiotic agents; Z88.0 Allergy status to penicillin
CPT/HCPCS: 43245; 43249; J2001; J2704; C1726; 43248

== ENCOUNTER → 2024-01-13 | Outpatient (CLI) | payer MEDICARE ==
--- NOTE | 2024-01-13 16:46 | P.BASOAP ---
Subjective Progress Note Date: 01/13/24 She has dark stools. Carafate and omeprazole. Has ulcers. Yogurts still with ulcer. Assessment/Plan Plan: Date: Initial Weight: 99.337 kg Initial BMI: Current Weight: Current BMI: Type of Surgery: Total Volume in Band: Previous Volume: Volume Removed: Volume Added: Band Size:
[2024-01-14 14:53] VITALS: BP 108/70; PULSE 61; RESP 16; TEMP 98.3; BMI 31.8
== END ==
LOC: BARWHC3 14:16
PROVIDERS: ATTEND Surgery Plastic and Reconstructive Surgery
DX: E66.01 Morbid (severe) obesity due to excess calories (principal); Z53.9 Procedure and treatment not carried out, unspecified reason
CPT/HCPCS: 99211

== ENCOUNTER → 2024-02-16 | Outpatient (CLI) | payer MEDICARE ==
--- NOTE | 2024-02-16 12:10 | XR ---
EXAMINATION TYPE: XR chest 2V DATE OF EXAM: 02/16/2024 12:04 PM CLINICAL INDICATION:Female, 69 years old with history of R06.02 SOB; [facility] COMPARISON: Chest radiographs from 02/09/2022. TECHNIQUE: XR chest 2V Frontal and lateral views of the chest. FINDINGS: Lungs/Pleura: New right perihilar airspace opacity. There is no evidence of pleural effusion, focal c onsolidation, or pneumothorax. Pulmonary vascularity: Unremarkable. Heart/mediastinum: Cardiomediastinal silhouette is unremarkable. Musculoskeletal: No acute osseous pathology. IMPRESSION: Perihilar opacity new from prior. Consider further evaluation with cross-sectional imaging with IV co ntrast, correlate for signs and symptoms of pneumonia.
== END | disposition home or self-care (01) ==
LOC: RADXRMAIN 11:32
PROVIDERS: ATTEND Internal Medicine
DX: R91.8 Other nonspecific abnormal finding of lung field (principal); R06.02 Shortness of breath
CPT/HCPCS: 71046

== ENCOUNTER → 2024-02-19 | Outpatient (CLI) | payer MEDICARE ==
[2024-02-19 13:52] LABS: African American GFR (CKD) >90 (>60 ml/min/1.73 sqM); Blood Urea Nitrogen 18 mg/dL (7-17); Non-African American GFR(CKD) >90 (>60 ml/min/1.73 sqM)
--- NOTE | 2024-02-20 14:08 | CT ---
CTA CHEST EXAMINATION TYPE: CT angio chest DATE OF EXAM: 02/19/2024 INDICATION: ABNORMAL COAGULATION PROFILE- (elevated d dimer). CT DLP: 448 mGycm, Automated exposure control for dose reduction was used. CONTRAST: Patient injected with 100ml mL of Isovue 370. COMPARISON: TECHNIQUE: CT of the chest is performed on a spiral scan at 2 mm thick sections. Study is performed with intravenous contrast timed for evaluation for pulmonary embolism. This will limit additional po rtions of the evaluation. 3-D MIP images reconstructed by the technologist are reviewed on the compu ter in the coronal and sagittal planes. FINDINGS: No persistent filling defects are evident to suggest an acute pulmonary embolism. No mediastinal or hilar adenopathy enlarged by CT criteria is evident. The ascending aorta diameter at the level of the main pulmonary artery is 3.6 cm. The main pulmonary artery diameter at the bifurcation is 3.1 cm. Some minimal pneumonitis changes in the posterior right lung. Series 11 image 54. Additional pneumoni tis changes posterior right upper lung field, series 11 image 36. Some nonspecific infiltrate is with in the right middle lobe. There is distortion of the greater fissure suggesting this may be atelectas is. Example image series [address] sections were through the upper abdomen. Upper abdomen appears unremarkable. IMPRESSION: 1. Minimal infiltrates within the right lung field discussed above. Correlate for atelectasis. Infectious etiology could be considered. Follow-up can be performed as clinically indicated. 2. No suspicious pulmonary embolism.
== END | disposition home or self-care (01) ==
LOC: RADCTMAIN 13:01
PROVIDERS: ATTEND Internal Medicine
DX: R91.8 Other nonspecific abnormal finding of lung field (principal); R79.1 Abnormal coagulation profile
CPT/HCPCS: 82565; 84520; 71275; 36415; Q9967

== ENCOUNTER → 2024-08-17 | Outpatient (CLI) | payer MEDICARE ==
[2024-08-17 16:21] LABS: INR 0.9 (<1.2); Partial Thromboplastin Time 24.3 sec (22.0-30.0); Prothrombin Time 10.1 sec (10.0-12.5)
[2024-08-17 19:22] LABS: HCT 35.2 % (37.2-46.3); HGB 11.8 g/dL (12.0-15.0); MCH 29.6 pg (27.0-32.0); MCHC 33.5 g/dL (32.0-37.0); MCV 88.4 FL (80.0-97.0); Mean Platelet Volume 9.2 FL (9.5-12.2); NRBC Per 100 WBC 0 X 10*3/uL (0.00-0.01); Platelet Count 291 X 10*3/uL (140-440); RBC 3.98 X 10*6/uL (4.10-5.20); RDW 12.9 % (11.5-14.5); WBC 7.57 X 10*3/uL (4.50-10.00)
[2024-08-18 00:49] LABS: % Iron Saturation 17.74 (12.00-45.00); ALT 31 U/L (8-44); AST 30 U/L (13-35); Albumin 4.1 g/dL (3.8-4.9); Albumin/Globulin Ratio 1.78 Ratio (1.60-3.17); Alkaline Phosphatase 141 U/L (41-126); BUN/Creat Ratio 24.43 Ratio (12.00-20.00); Blood Urea Nitrogen 17.1 mg/dL (9.0-27.0); Calcium 9.2 mg/dL (8.7-10.3); Carbon Dioxide 21.1 mmol/L (21.6-31.8); Chloride 97 mmol/L (96-109); Chol/HDL Ratio 4.08 Ratio; Ferritin 38.6 ng/mL (10.0-291.0); Globulin 2.3 g/dL (1.6-3.3); Glucose 98 mg/dL (70-110); Iron 77 UG/DL (50-170); LDL Cholesterol,Calculated 171.5 mg/dL (0.0-131.0); Magnesium 2.1 mg/dL (1.5-2.4); Phosphorus 3.8 mg/dL (2.4-5.1); Potassium 4.5 mmol/L (3.5-5.5); Sodium 134 mmol/L (135-145); Total Bilirubin 0.4 mg/dL (0.3-1.2); Total Iron Binding Capacity 434 UG/DL (228-460); Total Protein 6.4 g/dL (6.2-8.2)
[2024-08-18 11:53] LABS: Zinc, Serum 62 ug/dL (60-130)
[2024-08-19 05:56] LABS: Vit B1(Thiamine) 62 ug/L (38-122)
[2024-08-19 06:57] LABS: Cryptosporidium Antigen Negative (Negative)
[2024-08-19 12:03] LABS: Vitamin A 59 ug/dL (38-106)
== END | disposition home or self-care (01) ==
LOC: LABWHC1 14:50
PROVIDERS: ATTEND Surgery Plastic and Reconstructive Surgery
CPT/HCPCS: 36415; 80053; 80061; 82306; 82525; 82607; 82728; 82746; 83540; 83550; 83630; 83735; 83970; 83993; 84100; 84134; 84255; 84425; 84443; 84590; 84630; 85027; 85610; 85730; 87328; 87329

== ENCOUNTER → 2024-08-17 | Outpatient (CLI) | payer MEDICARE ==
[2024-08-17 13:52] VITALS: BP 111/70; PULSE 65; RESP 16; TEMP 98.2; BMI 32.5
--- NOTE | 2024-08-17 14:28 | P.BASOAP ---
Subjective Progress Note Date: 08/17/24 She removed tape worm from her rectum. She reports abdominal pain. She denies traveling. She denies any new foods. She reports abdominal pain after exposure to her daughter. Her daughter has parasites. Needs new labs. Referral infectious disease referral due to parasites. Objective - Vital Signs Vital signs: Vital Signs Temp 98.2 F 08/17/24 13:41 Pulse 65 08/17/24 13:41 Resp 16 08/17/24 13:41 BP 111/70 08/17/24 13:41 Pulse Ox FiO2 Intake & Output 08/16/24 08/17/24 08/17/24 18:59 06:59 18:59 Weight 75.75 kg Assessment/Plan Plan: Date: 08/17/24 Initial Weight: 99.337 kg Initial BMI: 42.7 Current Weight: 75.75 kg Current BMI: 32.5 Type of Surgery: Total Volume in Band: Previous Volume: Volume Removed: Volume Added: Band Size:
== END ==
LOC: BARWHC3 13:23
PROVIDERS: ATTEND Surgery Plastic and Reconstructive Surgery
DX: E66.01 Morbid (severe) obesity due to excess calories (principal); R10.9 Unspecified abdominal pain; Z88.1 Allergy status to other antibiotic agents; Z88.8 Allergy status to other drugs, medicaments and biological substances; Z88.0 Allergy status to penicillin; Z68.32 Body mass index [BMI] 32.0-32.9, adult
CPT/HCPCS: 99211

== ENCOUNTER → 2024-08-18 | Outpatient (CLI) | payer MEDICARE | END | disposition home or self-care (01) | LOC: LABPRL 13:42 | PROVIDERS: ATTEND Surgery Plastic and Reconstructive Surgery | DX: Z53.9 Procedure and treatment not carried out, unspecified reason (principal) ==

== ENCOUNTER → 2025-01-04 | Outpatient (CLI) | payer MEDICARE ==
--- NOTE | 2025-01-04 13:03 | MM ---
Reason for Exam: Screening (asymptomatic). Last mammogram was performed 1 year(s) and 6 month(s) ago. Patient History: Menarche at age 11. First Full-Term at age 19. Hysterectomy at age 26. Postmenopausal. Currently using Estrogen, beginning at age 58 for 1 year. 11/28/1998, Benign Stereotactic Core Biopsy on the left side. Risk Values: Kimberly 5 year model risk: 1.8%. NCI Lifetime model risk: 5.3%. Prior Study Comparison: 01/28/2022 Bilateral Screening Mammogram, [facility]. 01/31/2022 Right Diagnostic Mammogram, [facility]. 07/09/2023 Bilateral MG 3D screening mammo w/cad, [facility]. Tissue Density: There are scattered areas of fibroglandular density. Findings: Analyzed By CAD. Mammotome biopsy clip in the left breast upper outer aspect is redemonstrated. There are stable scattered tiny benign-appearing round calcifications bilaterally. Stable tiny grouped round calcifications left breast needle biopsy clip. Benign-appearing vascular calcifications posteriorly in the right breast is redemonstrated. There is no suspicious new group of microcalcifications or new suspicious mass in either breast. Overall Assessment: Benign, BI-RAD 2 Management: Screening Mammogram of both breasts in 1 year. . Patient should continue monthly self-breast exams. A clinical breast exam by your physician is recommended on an annual basis. This exam should not preclude additional follow-up of suspicious palpable abnormalities. Note on Kimberly scores and lifetime risk: 1. A Kimberly score greater than 3% is considered moderate risk. If this is the case, consider specialist referral to assess eligibility for a risk reducing agent. 2. If overall lifetime risk for the development of breast cancer is 20% or higher, the patient may qualify for future screening with alternating mammogram and breast MRI. [facility], , 01/04/2025 1:00 PM. Electronically signed and approved by: Eros Elkins M.D.
== END | disposition home or self-care (01) ==
LOC: RADMAMWWP 11:20
PROVIDERS: ATTEND Internal Medicine
DX: Z12.31 Encounter for screening mammogram for malignant neoplasm of breast (principal); R92.323 Mammographic fibroglandular density, bilateral breasts; Z78.0 Asymptomatic menopausal state
CPT/HCPCS: 77063; 77067

== ENCOUNTER 2025-05-08 08:09 | Day surgery (SDC) | payer MEDICARE ==
--- NOTE | 2025-05-08 07:41 | P.GSHP ---
History of Present Illness H&P Date: 05/08/25 CHIEF COMPLAINT: GERD and dysphagia HISTORY OF PRESENT ILLNESS: The patient is a 70-year-old female who presents reports gastroesophageal reflux disease and dysphagia. Upper endoscopy was offered for further evaluation and management. PAST MEDICAL HISTORY: Please see list. PAST SURGICAL HISTORY: Please see list. MEDICATIONS: Please see list. ALLERGIES: Please see list. SOCIAL HISTORY: No illicit drug use FAMILY HISTORY: No reports of Crohn disease or ulcerative colitis. REVIEW OF ORGAN SYSTEMS: CONSTITUTIONAL: No reports of fevers or chills. GI: Denies any blood in stools or constipation. PHYSICAL EXAM: VITAL SIGNS: Stable GENERAL: Well-developed and pleasant in no acute distress. HEENT: No scleral icterus. Extraocular movements grossly intact. Moist buccal mucosa. NECK: Supple without lymphadenopathy. CHEST: Unlabored respirations. Equal bilateral excursions. CARDIOVASCULAR: Regular rate and rhythm. Distal 2+ pulses. ABDOMEN: Soft, nondistended. MUSCULOSKELETAL: No clubbing, cyanosis, or edema. ASSESSMENT: 1. Gastroesophageal reflux disease 2. Dysphagia PLAN: 1. Recommend proceeding with an upper endoscopy Past Medical History Past Medical History: Atrial Fibrillation, Asthma, Deep Vein Thrombosis (DVT), Fibromyalgia, Osteoarthritis (OA), Thyroid Disorder Additional Past Medical History / Comment(s): NAUSEA x1-2 months, intermittent dysphagia. 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 History of Any Multi-Drug Resistant Organisms: None Reported Past Surgical History: Appendectomy, Bariatric Surgery, Breast Surgery, Section, Heart Catheterization, Hernia Repair, Hysterectomy, Joint Replacement, Orthopedic Surgery, Tonsillectomy, Tubal Ligation Additional Past Surgical History / Comment(s): BILAT TKA, FOOT SX, breast bx., Colonoscopy, EGD, Hx. gastric bypass with esophagus repair (March 2015), HIATAL HERNIA, VENTRAL HERNIA, recent EGD, revision of total left knee Past Anesthesia/Blood Transfusion Reactions: No Reported Reaction Additional Past Anesthesia/Blood Transfusion Reaction / Comment(s): Pt has never had a blood transfusion. Smoking Status: Never smoker - Past Family History Father Family Medical History: Coronary Artery Disease (CAD) Mother Family Medical History: Cancer Additional Family Medical History / Comment(s): NON-HODGKINS LYMPHOMA Brother(s) Family Medical History: Myocardial Infarction (SD) Sister(s) Family Medical History: Myocardial Infarction (SD), Thyroid Disorder Medications and Allergies Home Medications Medication Instructions Recorded Confirmed Type Levothyroxine Sodium [Synthroid] 175 mcg PO QAM 02/23/14 05/05/25 History traMADol HCL 50 mg PO BID PRN 10/17/14 05/05/25 History ALPRAZolam [Xanax] 0.5 mg PO BID PRN 04/27/18 05/05/25 History levETIRAcetam [Keppra] 750 mg PO BID 11/07/20 05/05/25 History Sertraline HCl [Zoloft] 150 mg PO HS 08/25/21 05/05/25 History Montelukast [Singulair] 10 mg PO QAM PRN 04/13/23 05/05/25 History Cyclobenzaprine [Flexeril] 10 mg PO TID PRN 08/25/23 05/05/25 History Biotin [Xgib-Azbf-Kmduj] 10,000 mcg PO DAILY 01/05/24 05/05/25 History Metoprolol Tartrate [Lopressor] 50 mg PO BID 01/05/24 05/05/25 History Omeprazole [PriLOSEC] 40 mg PO DAILY #90 cap 01/13/24 05/05/25 Rx Allergies Allergy/AdvReac Type Severity Reaction Status Date / Time azithromycin Allergy Severe Rapid Verified 05/05/25 10:01 Heart Rate metronidazole [From Flagyl] Allergy Severe Dyspnea Verified 05/05/25 10:01 Penicillins AdvReac Swelling Verified 05/05/25 10:01 of legs
[2025-05-08] MEDS: IV FLUID CONTINUATION 1,000 ML IV ONE (08:34)
[2025-05-08 08:46] VITALS: TEMP 97.9
[2025-05-08] MEDS: LACTATED RINGERS 1,000 ML IV SCH (08:54)
[2025-05-08] MEDS ORDERED: LIDOCAINE 1% INJ 10MG/ML (20 ML MDV) ONE (09:18)
[2025-05-08] MEDS ORDERED: PROPOFOL 10 MG/ML 20 ML VIAL IV ONE (09:18)
--- NOTE | 2025-05-08 09:45 | P.PCN ---
Date of Procedure: 05/08/25 Description of Procedure: PREOPERATIVE DIAGNOSIS: Dysphagia. Gastroesophageal reflux disease POSTOPERATIVE DIAGNOSIS: Dysphagia. Gastroesophageal reflux disease Gastrojejunal stenosis Esophageal dysmotility OPERATION: Esophagogastrojejunoscopy with [employer] 20 mm balloon dilator for gastrojejunal stenosis Esophagogastrojejunoscopy with rigid dilator over the guidewire 57 Fr with dilation of esophageal stenosis/dysmotility SURGEON: Kimmie Bush MD ANESTHESIA: MAC. INDICATIONS: The patient is a 70-year-old female who presents with a history of dysphagia. Benefits and risks of the procedure were described. Informed consent was obtained. DESCRIPTION: The patient was brought into the endoscopy suite and laid in the left lateral decubitus position. After a timeout was confirmed, the procedure was initiated. An Olympus gastroscope was passed into the posterior oropharynx down into the gastric pouch. The scope was entered into the gastric pouch with gastrojejunal stenosis along the gastrojejunal anastomosis. To address her 15 mm gastrojejunal stricture, a 20 mm [employer] balloon was used to dilate. Next using an [place] rigid dilator, a guidewire was placed through the gastroscope. Next the scope was withdrawn. A 54-[employer]bek rigid [place] dilator was passed carefully along the posterior oropharynx to 45 cm and left in place for 2-3 minutes stretch. The dilator was withdrawn including the guidewire. The scope was reentered along the posterior oropharynx with no findings of full- thickness tear of the upper esophageal sphincter. No full-thickness injury was encountered. The GI tract was desufflated. The patient tolerated the procedure well. FINDINGS: Gastrojejunal anastomotic stricture with chronic ulceration, 2-mm, and stenosis dilated Presbyesophagus with esophageal dysmotility dilated [place]uran rigid dilator 57-U[employer]bek completed. RECOMMENDATIONS: Upper endoscopy as needed Plan - Discharge Summary Discharge Rx Participant: No New Discharge Prescriptions: Continue Levothyroxine Sodium [Synthroid] 175 mcg PO QAM traMADol HCL 50 mg PO BID PRN PRN Reason: Pain ALPRAZolam [Xanax] 0.5 mg PO BID PRN PRN Reason: Anxiety levETIRAcetam [Keppra] 750 mg PO BID Sertraline HCl [Zoloft] 150 mg PO HS Cyclobenzaprine [Flexeril] 10 mg PO TID PRN PRN Reason: Muscle Pain Biotin [Tuvc-Xlaf-Otkic] 10,000 mcg PO DAILY Montelukast [Singulair] 10 mg PO QAM PRN PRN Reason: allergies Metoprolol Tartrate [Lopressor] 50 mg PO BID Omeprazole [PriLOSEC] 40 mg PO DAILY #90 cap Discharge Medication List Levothyroxine Sodium [Synthroid] 175 mcg PO QAM 02/23/14 [History] traMADol HCL 50 mg PO BID PRN 10/17/14 [History] ALPRAZolam [Xanax] 0.5 mg PO BID PRN 04/27/18 [History] levETIRAcetam [Keppra] 750 mg PO BID 11/07/20 [History] Sertraline HCl [Zoloft] 150 mg PO HS 08/25/21 [History] Montelukast [Singulair] 10 mg PO QAM PRN 04/13/23 [History] Cyclobenzaprine [Flexeril] 10 mg PO TID PRN 08/25/23 [History] Biotin [Hdef-Odqd-Jmruz] 10,000 mcg PO DAILY 01/05/24 [History] Metoprolol Tartrate [Lopressor] 50 mg PO BID 01/05/24 [History] Omeprazole [PriLOSEC] 40 mg PO DAILY #90 cap 01/13/24 [Rx] [facility]ment(s[facility]Ref[facility] [place] [place] [facility] [place] [facility]25 3:00 pm Patient Instructions/Handouts: Chronic Dysphagia (DC), Esophageal Dilation (DC) Activity/Diet/Wound Care/Special Instructions: Soft diet today Medications below increased risk of troubles with swallowing: Keppra (levetiracetam) and difficulty swallowing Difficulty swallowing, also known as dysphagia, is listed as a potential side effect of Keppra (levetiracetam), an anti-seizure medication. While not among the most common side effects, it is important to be aware of this potential issue, especially in individuals already prone to swallowing difficulties or those who find taking oral medications challenging. Discharge Disposition: HOME SELF-CARE
[2025-05-08 09:52] VITALS: RESP 14
[2025-05-08 09:59] VITALS: BP 109/67; PULSE 56
== END 2025-05-08 10:20 | disposition home or self-care (01) ==
LOC: ORWHC2ENDO 08:09
PROVIDERS: ATTEND Surgery Plastic and Reconstructive Surgery
DX: K22.2 Esophageal obstruction (principal); K21.9 Gastro-esophageal reflux disease without esophagitis; K56.699 Other intestinal obstruction unspecified as to partial versus complete obstruction; K22.4 Dyskinesia of esophagus; I48.91 Unspecified atrial fibrillation; E06.3 Autoimmune thyroiditis; J45.909 Unspecified asthma, uncomplicated; Z79.890 Hormone replacement therapy; Z86.718 Personal history of other venous thrombosis and embolism; Z88.0 Allergy status to penicillin; Z88.1 Allergy status to other antibiotic agents; Z96.653 Presence of artificial knee joint, bilateral; Z98.84 Bariatric surgery status
CPT/HCPCS: 43248; 43249; J2003; J2704; C1726